=== PATIENT | male | born 1945 | race Caucasian/White ===

== ENCOUNTER → 2018-09-05 08:23 | Outpatient (CLI) | payer MEDICARE, SELFPAY ==
[2018-09-05 09:02] LABS: Add Manual Diff / Slide Review NO; Basophils Percent Auto 0.9 % (0-2); Eosinophils Percent Auto 3.2 % (2-4); Hematocrit 46.8 % (41-53); Lymphocytes Percent Auto 42.2 % (25-40); Mean Corpuscular HGB Conc 34.1 % (30-36); Mean Corpuscular Hemoglobin 31.8 PG (26-34); Mean Corpuscular Volume 93.4 fL (80-100); Monocytes Percent Auto 12.4 % (3-14); Neutrophils Absolute Auto 2300 /uL (3000-5900); Neutrophils Percent Auto 41.3 % (50-75); Platelet Count 171 X10^3/uL (150-400); Red Blood Cell Count 5.01 X10^6/uL (4.5-5.9); Red Cell Distribution Width 13.1 % (11.6-14.8); White Blood Cell Count 5.6 X10^3/uL (4.5-11.0)
[2018-09-05 09:27] LABS: Alanine Aminotransferase 33 IU/L (21-72); Albumin 4.5 g/dL (3.5-5.0); Albumin Globulin Ratio 1.7 (1.0-2.8); Alkaline Phosphatase 79 U/L (38-126); Aspartate Aminotransferase 28 IU/L (17-59); BUN Creatinine Ratio 24.4 (6-22); Bilirubin Total 0.6 mg/dL (0.2-1.3); Blood Urea Nitrogen 22 mg/dL (9-20); Calcium 9.2 mg/dL (8.4-10.2); Carbon Dioxide 27 mmol/L (22-32); Chloride 101 mmol/L (98-107); Estimated Glomerular Filt Rate > 60.0 mL/min (>60); Globulin 2.7 g/dL (1.7-4.1); Glucose 117 mg/dL (80-110); HEMOLYSIS < 15 (0-50); Sodium 142 mmol/L (137-145); Total Protein 7.2 g/dL (6.3-8.2)
[2018-09-06 15:55] LABS: Free Kappa Light Chain 39.2 mg/L (3.3-19.4); Free Kappa/ Lambda Ratio 2.17 (0.26-1.65); Free Lambda 18.1 mg/L (5.7-26.3)
[2018-09-09 15:48] LABS: Abnormal Protein Band 1 0.4 g/dL (NONE DETECTED); Albumin 4.1 g/dL (3.8-4.8); Alpha 1 Globulin 0.3 g/dL (0.2-0.3); Alpha 2 Globulin 0.7 g/dL (0.5-0.9); Beta 1 Globulin 0.4 g/dL (0.4-0.6); Protein, Total 6.8 g/dL (6.1-8.1)
== END ==
PROVIDERS: Family Provider Internal Medicine; PCP Internal Medicine; Visit Provider Nurse Practitioner Gerontology
DX: D47.2 Monoclonal gammopathy (principal)
CPT/HCPCS: 36415; 80053; 83883; 84155; 84165; 85025

== ENCOUNTER 2019-03-12 12:31 | Day surgery (SDC) | payer MEDICARE, SELFPAY ==
[2019-03-12] VITALS (7 sets, daily range): BP systolic 96–144; BP diastolic 59–79; PULSE 60–68; RESP 12–16; TEMP 36.6–36.9; O2SAT 94–97; BMI 24.9
[2019-03-12] MEDS: SODIUM CHLORIDE 0.9% 1,000 ML 200 ML IV (12:47)
--- NOTE | 2019-03-12 14:15 | P.HP_ITS ---
History of Present Illness Chief complaint: [id number] SCREENING COLONOSCOPY W/POSS BX Patient History Medical History Diabetes (Acute) Diverticulitis (Acute) GERD (gastroesophageal reflux disease) (Acute) Hypertension (Acute) Murmur (Acute) Neuropathy (Acute) Seasonal allergies (Acute) Surgical History History of colonoscopy (Acute) Social History household members: spouse Family & Social History Social History: household members spouse Meds Home Medications Medication Instructions Recorded Confirmed Type omeprazole 10 mg PO QDAY #0 03/27/17 03/12/19 History aspirin 81 mg PO DAILY 09/16/18 03/12/19 History erdvttsg-dacnv-bqexu-CF borate 1 tab PO DAILY 09/16/18 History [Move Free Do It In Person [facility]] hydrochlorothiazide 12.5 mg PO DAILY 09/16/18 03/12/19 History losartan 50 mg PO DAILY 09/16/18 03/12/19 History multivitamin 1 tab PO DAILY 09/16/18 09/16/18 History simvastatin [Zocor] 40 mg PO QPM 09/16/18 03/12/19 History Tylenol 03/12/19 History fluticasone propionate 1 spray INTRANASAL DAILY 03/12/19 03/12/19 History gabapentin 800 mg PO BID 03/12/19 03/12/19 History metformin 500 mg PO BID 03/12/19 03/12/19 History Allergies Allergy/AdvReac Type Severity Reaction Status Date / Time No Known Drug Allergies Allergy Unknown Verified 03/12/19 12:47 Review of Systems Review of Systems All systems reviewed & are unremarkable except as noted in HPI and below Exam Vital Signs (past 8 hours): - 03/12/19 13:02 Temperature 98.0 F Pulse Rate 68 Respiratory Rate 15 Blood Pressure 144/79 H Pulse Oximetry 97 Oxygen Delivery Method Room Air Narrative Exam Narrative: Awake alert and oriented x3, pupils equal round reactive to light, lungs clear, abdomen soft nontender nondistended Assessment & Plan Assessment & Plan narrative: Colon cancer screening, colonoscopy
[2019-03-12] MEDS: MIDAZOLAM 5 MG/5 ML VIAL IV (14:27)
[2019-03-12] MEDS: fentaNYL 250 MCG/5 ML INJ IV (14:28)
--- NOTE | 2019-03-12 14:44 | PM.OP.ENDO ---
Operative Date/Time/Diagnoses Date of procedure: 03/12/19 Procedure & Clinicians Study performed: Colonoscopy Moderate conscious sedation was administered by the endoscopy nurse and supervised by the endoscopist. The following parameters were monitored: Oxygen saturation, heart rate, blood pressure, and response to care. Sedation: 3 mg midazolam, 100 mcg fentanyl Indications: Colon cancer screening. Last colonoscopy was done 10 years ago. Procedure Notes Procedure in detail: Prior to the procedure, history and physical was performed, and patient medications and allergies were reviewed. Preprocedure nursing history and assessment was reviewed. Patient identification and proposed procedure were verified by the physician and nurse in the procedure room. The physical status of the patient was reassessed after the procedure. After informed consent was obtained including risks, benefits, and alternatives, the scope was passed under direct vision. Throughout the procedure, the patient's blood pressure, pulse, and oxygen saturations were monitored continuously. The colonoscope was introduced through the anus and advanced to the cecum as identified by the appendiceal orifice and ileocecal valve. The patient tolerated the procedure well. Bowel prep was deemed adequate to detect polyps greater than 5 mm. Perianal and digital rectal examinations were unremarkable. Retroflexion in the rectum revealed grade 1 internal hemorrhoids Many medium mouth diverticula noted in the sigmoid colon The colon was otherwise normal appearing Impression: Internal hemorrhoids Sigmoid colon diverticulosis No specimens taken Sedation minutes: 15 Complications: other (EBL none. No complications) Plan for aftercare: Repeat colonoscopy as needed. No indication for additional colonoscopies for colon cancer screening purposes. Resume home medications High fiber diet Discharge home with escort
== END 2019-03-12 15:18 | disposition home or self-care (01) ==
PROVIDERS: Family Provider Internal Medicine; PCP Internal Medicine; Visit Provider Internal Medicine
PROC: 0DJD8ZZ Inspection of Lower Intestinal Tract, Via Natural or Artificial Opening Endoscopic (ICD-10-PCS; CPT 45378; principal; 2019-03-12 13:30)
DX: Z12.11 Encounter for screening for malignant neoplasm of colon (principal); E11.9 Type 2 diabetes mellitus without complications; I10 Essential (primary) hypertension; K57.30 Diverticulosis of large intestine without perforation or abscess without bleeding; K64.0 First degree hemorrhoids; Z79.84 Long term (current) use of oral hypoglycemic drugs
CPT/HCPCS: G0121; J2250; J3010

== ENCOUNTER → 2020-04-05 07:57 | Outpatient (CLI) | payer MEDICARE, SELFPAY ==
[2020-04-05 08:46] LABS: Hemoglobin A1C% w Est Avg Glu 6.7 % (4.0-6.0)
== END ==
PROVIDERS: Family Provider Internal Medicine; PCP Internal Medicine; Referring Provider Internal Medicine; Visit Provider Internal Medicine
DX: E11.9 Type 2 diabetes mellitus without complications (principal)
CPT/HCPCS: 36415; 83036

== ENCOUNTER → 2020-05-05 08:01 | Outpatient (CLI) | payer MEDICARE, SELFPAY ==
[2020-05-05 10:02] LABS: Hemoglobin A1C% w Est Avg Glu 6.6 % (4.0-6.0)
== END ==
PROVIDERS: Family Provider Internal Medicine; PCP Internal Medicine; Referring Provider Internal Medicine; Visit Provider Internal Medicine
DX: E11.9 Type 2 diabetes mellitus without complications (principal)
CPT/HCPCS: 36415; 83036

== ENCOUNTER → 2020-07-11 14:11 | Outpatient (CLI) | payer MEDICARE, SELFPAY ==
[2020-07-12 13:47] LABS: COVID19 Sendout Not Detected (Not Detect)
== END ==
PROVIDERS: Family Provider Internal Medicine; PCP Internal Medicine; Visit Provider Physician Assistant
DX: Z11.59 Encounter for screening for other viral diseases (principal)
CPT/HCPCS: 87635

== ENCOUNTER 2020-07-14 12:24 | Day surgery (SDC) | payer MEDICARE, SELFPAY ==
--- NOTE | 2020-07-14 | PATH_ITS ---
[facility] Accession Number: [id number] . 01 Material submitted: . colon - RANDOM COLON . 02 Diagnosis: Random Colon, Biopsy: Lymphocytic colitis. MRV 07/16/2020 1048 Local . 02 Electronically signed: . Yoni Urena MD, PhD, Pathologist NPI- [id number] . 01 Gross description: . Received in formalin, labeled random colon biopsies, and consists of multiple lauren-pink fragments of soft tissue measuring 1.0 x 1.0 x 0.2 cm in aggregate. The specimen is entirely submitted in cassette A1. ([id number]) /MRV 07/15/2020 1032 Local . 02 Pathologist provided ICD-10: R19.7, K52.89 . 02 CPT . 191715 Performed at: 01 [facility] [address] [id number] MD Raul Santos MD Phone: [phone] Performed at: 02 [facility] [address] [place] [id number] MD Bhavna Calabrese MD Phone: [phone]
[2020-07-14 13:01] VITALS: BP 143/76; PULSE 64; RESP 16; TEMP 36.9; O2SAT 98; BMI 24.7
[2020-07-14] MEDS: SODIUM CHLORIDE 0.9% 1,000 ML 21 ML IV (13:23)
--- NOTE | 2020-07-14 13:36 | PM.PREOP ---
Pre-operative Note Interval Note History & Physical reviewed/Exam performed by Physician: Yes Changes to H&P: No ASA Class (for procedural sedation): II
--- NOTE | 2020-07-14 13:37 | PM.OP.ENDO ---
Operative Date/Time/Diagnoses Date of procedure: 07/14/20 Pre-op diagnosis: See indication and findings Procedure & Clinicians Study performed: Colonoscopy with biopsy Same procedure as scheduled: Yes Indications: Diarrhea Surgeon: Ramonita Robbins Procedure Notes Procedure in detail: After informed consent was obtained the patient was placed in left lateral decubitus position. Video colonoscope was introduced the rectum slowly advanced to cecum. Preparation was good. On slow withdrawal mucosa was carefully examined. The scope was removed. The patient tolerated procedure well. Blood loss none Complications none Sedation Total sedation time 14 minutes Versed 4 mg, fentanyl 100 mg IV titration Findings 1. Colonoscopy showing at decreased vascular pattern and mild erythema throughout in a somewhat patchy fashion. All this could be within normal limits but might represent underlying microscopic colitis. Random biopsies taken. 2. Otherwise negative colonoscopy to cecum. Will be in touch with the patient regarding biopsies and if positive of her treatment and if negative offer additional workup.
[2020-07-14] MEDS: fentaNYL 250 MCG/5 ML INJ IV (14:03)
[2020-07-14] MEDS: MIDAZOLAM 5 MG/5 ML VIAL IV (14:10)
[2020-07-14 14:23] VITALS: BP 100/61; PULSE 60; RESP 12; TEMP 36.4; O2SAT 93
[2020-07-14 14:26] VITALS: BP 112/65; PULSE 65; RESP 12; O2SAT 94
[2020-07-14 14:46] VITALS: BP 106/61; PULSE 60; RESP 14; TEMP 36.9; O2SAT 94
== END 2020-07-14 15:16 | disposition home or self-care (01) ==
PROVIDERS: Family Provider Internal Medicine; PCP Internal Medicine; Referring Provider Internal Medicine Gastroenterology; Visit Provider Internal Medicine Gastroenterology
PROC: 0DJD8ZZ Inspection of Lower Intestinal Tract, Via Natural or Artificial Opening Endoscopic (ICD-10-PCS; CPT 45378; principal; 2020-07-14 14:30)
DX: K52.832 Lymphocytic colitis (principal); E11.9 Type 2 diabetes mellitus without complications; I10 Essential (primary) hypertension; K21.9 Gastro-esophageal reflux disease without esophagitis
CPT/HCPCS: 45380; J2250; J3010

== ENCOUNTER → 2020-09-15 10:05 | Outpatient (CLI) | payer MEDICARE, SELFPAY ==
[2020-09-16 06:36] LABS: PSA Free % 6.3 % (.); PSA, Total 10.4 ng/mL (0.0-4.0)
== END ==
PROVIDERS: Family Provider Internal Medicine; PCP Internal Medicine; Referring Provider Internal Medicine; Visit Provider Internal Medicine
DX: Z12.5 Encounter for screening for malignant neoplasm of prostate (principal); R97.20 Elevated prostate specific antigen [PSA]
CPT/HCPCS: 36415; 84153; 84154

== ENCOUNTER → 2020-11-26 12:21 | Outpatient (CLI) | payer MEDICARE, SELFPAY ==
--- NOTE | 2020-11-26 | DI.MRI.S_ITS ---
PROCEDURE: MR ANGIO HEAD WO CON INDICATIONS: PULSATILE TINNITUS RIGHT EAR TECHNIQUE: Noncontrast axial 3-D iocj-te-lqiwmi MR angiogram, with 3-dimensional maximum intensity projection (MIP) reformats of the internal carotid arteries and posterior circulation then performed. COMPARISON: None. FINDINGS: Image quality: Excellent. Anterior circulation: Intracranial internal carotid arteries demonstrate normal size and intraluminal flow signal. The flow within the paired anterior cerebral arteries is normal and symmetric. The flow within the middle cerebral arteries is normal and symmetric. The anterior communicating artery is seen. No stenoses, occlusions, or aneurysms. Posterior circulation: Visualized portions of the vertebral arteries demonstrate normal caliber, and join to form a normal appearing basilar artery. The flow within the posterior cerebral arteries is normal and symmetric. No stenoses, occlusions, or aneurysms. IMPRESSION: Negative cerebral MR angiography. Dictated by: Cirilo Coe M.D. on 11/26/2020 at 13:26 Approved by: Cirilo Coe M.D. on 11/26/2020 at 13:27
== END ==
PROVIDERS: Family Provider Internal Medicine; PCP Internal Medicine; Referring Provider Otolaryngology; Visit Provider Otolaryngology
DX: H93.A1 Pulsatile tinnitus, right ear (principal)
CPT/HCPCS: 70544

== ENCOUNTER → 2020-12-06 14:33 | Outpatient (CLI) | payer MEDICARE, SELFPAY ==
--- NOTE | 2020-12-06 | DI.MRI.S_ITS ---
PROCEDURE: MR ANGIO NECK W CON INDICATIONS: Pulsatile tinnitus, right ear TECHNIQUE: Axial and sagittal TruFISP through the neck. Coronal dynamic MRA after the administration of contrast in the arterial and venous phases, with rotating 3-dimensional maximum intensity projection (MIP) reformats constructed from subtraction images. COMPARISON: Formerly [facility], [place], CAROTID ARTERY DOPPLER BILAT, 10/24/2010, 12:21. Formerly [facility], , MR ANGIO HEAD WO CON, 11/26/2020, 12:37. FINDINGS: Image quality: Excellent. Carotid system: Great vessels demonstrate a conventional anatomy as they arise from the aortic arch. The origins of the common carotid arteries appear normal. The calibers and courses of the common carotid arteries are likewise normal. The carotid bifurcations appear normal bilaterally. The internal carotid arteries are widely patent up to the [place] of [place]. Posterior circulation: The origins of the vertebral arteries are unremarkable. The more superior portions of the vertebral arteries demonstrate normal course and caliber. The left vertebral artery is dominant to the right. Vertebral arteries join to form a normal appearing basilar artery. Miscellaneous: Subclavian arteries are patent throughout. Pre-contrast images through the neck demonstrate no soft tissue abnormalities. IMPRESSION: Within the arteries of the neck, no hemodynamically significant stenosis can be seen. Any quantitative measurements of stenosis were performed using NASCET criteria. Dictated by: Tariq Guallpa M.D. on 12/06/2020 at 16:11 Approved by: Tariq Guallpa M.D. on 12/06/2020 at 16:13
== END ==
PROVIDERS: Family Provider Internal Medicine; PCP Internal Medicine; Referring Provider Otolaryngology; Visit Provider Otolaryngology
DX: H93.A1 Pulsatile tinnitus, right ear (principal)
CPT/HCPCS: 70548; A9579

== ENCOUNTER 2021-02-04 17:08 | Emergency (ER) | payer MEDICARE, SELFPAY ==
[2021-02-04] VITALS (7 sets, daily range): BP systolic 121–133; BP diastolic 62–68; PULSE 68–86; RESP 18–22; TEMP 37.1; O2SAT 94–98; BMI 25.0
--- NOTE | 2021-02-04 17:30 | ED_ITS ---
HPI - General Adult General Chief complaint: Abdominal Pain Stated complaint: Dizziness, N/V Time Seen by Provider: 02/04/21 17:30 Source: patient and EMS Mode of arrival: EMS Limitations: no limitations History of Present Illness HPI narrative: 75-year-old male who is brought in by EMS for evaluation of nausea and vomiting that started last evening and also some dizziness and weakness today. He states that yesterday he was with his down in [place]. He states they ate at a restaurant. Afterwards when he was at home he developed nausea and vomiting. He states that he has diarrhea but that is not necessarily new for him. He was diagnosed with ?microscopic colitis ?from a biopsy that was taken during a colonoscopy. He is currently on medications for this and under the care of a GI provider. He denies any fevers. Recently underwent a prostatectomy. His is not exhibiting any symptoms. He did receive Zofran by EMS prior to arrival which has improved his nausea. He has not drank much over the past 24 hours because the nausea. They were also concerned that for the past week he has become very fatigued and actually falling asleep during the day which is unusual for him. Related Data Home Medications Medication Instructions Recorded Confirmed omeprazole 10 mg PO QDAY #0 03/27/17 10/07/20 Move [facility] 1 tab PO DAILY 09/16/18 10/07/20 aspirin 81 mg PO DAILY 09/16/18 10/07/20 hydrochlorothiazide 12.5 mg PO DAILY 09/16/18 10/07/20 losartan 50 mg PO DAILY 09/16/18 10/07/20 multivitamin 1 tab PO DAILY 09/16/18 10/07/20 simvastatin [Zocor] 40 mg PO QPM 09/16/18 10/07/20 Tylenol 500 mg BID 03/12/19 10/07/20 fluticasone propionate 1 spray INTRANASAL DAILY 03/12/19 10/07/20 gabapentin 600 mg PO BID 03/12/19 10/07/20 Tumeric 1,000 mg DAILY 09/29/19 10/07/20 loperamide 2 mg PO SEEINSTR 07/14/20 10/07/20 Allergies Allergy/AdvReac Type Severity Reaction Status Date / Time No Known Drug Allergies Allergy Unknown Verified 07/14/20 12:56 Review of Systems Constitutional Constitutional: Reports fatigue and Denies fever(s) Cardiovascular Cardiovascular: Denies chest pain and Denies dyspnea Respiratory Respiratory: Denies dyspnea Gastrointestinal Gastrointestinal: Denies abdominal pain, Denies melena, Denies hematochezia, Denies change in bowel habits, Reports diarrhea, Reports nausea and Reports vomiting Musculoskeletal Musculoskeletal: Denies arthralgias and Denies myalgias Integumentary/Breasts Skin/Breast: Denies lesions and Denies rash Neurologic Neurologic: Denies behavioral changes Psychiatric Psychiatric: Denies behavioral changes Endocrine Endocrine: Reports fatigue Hematologic/Lymphatic On Anticoagulants: No Allergic/Immunologic Allergic/Immunologic: Denies urticaria Patient History Medical History Diabetes Diverticulitis GERD (gastroesophageal reflux disease) Hypertension Murmur Neuropathy Seasonal allergies Surgical History (Updated 09/29/19 @ 09:21 by Mann Wilson MD) History of colonoscopy Social History household members: spouse Smoking Status: Never smoker alcohol intake: current Smoking Status: Never smoker alcohol intake frequency: 0-2 drinks per day Substance Use Type: does not use Exam Initial Vital Signs Initial Vital Signs: Vital Signs Temperature 98.8 F 02/04/21 17:17 Pulse Rate 86 02/04/21 17:17 Respiratory Rate 18 02/04/21 17:17 Blood Pressure 133/67 02/04/21 17:17 Pulse Oximetry 97 02/04/21 17:17 Const General: cooperative, comfortable and well developed Limitations: mental status not altered HENMT Head: normal to inspection and normocephalic Resp Effort & Inspection: normal respiratory effort Auscultation: clear to auscultation bilaterally Cardio Rate: regular rate Rhythm: regular rhythm GI Inspection: non-distended Palpation: soft, No firm and No tender Skin Other: Surgical incisions from prostatectomy on abdomen appear well without any signs of infection Neuro General: patient alert and patient awake Extrem General: capillary refill normal Course Orders Ordered: ED Orders 02/04/21 17:00 Complete Blood Count AUTO DIFF Stat Comprehensive Metabolic Panel Stat Lipase Stat 02/04/21 17:30 EKG-12 Lead Stat 02/04/21 17:42 Urine Culture Stat Urine Microscopic Stat Discontinued Medications Sodium Chloride (Normal Saline 0.9%) 1,000 mls @ 1,000 mls/hr IV BOLUS ONE Stop: 02/04/21 18:29 Last Infusion: 02/04/21 18:28 Dose: 0 mls/hr Documented by: Admin: 02/04/21 17:51 Dose: 1,000 mls/hr Documented by: ESTELITA Sodium Chloride (Normal Saline 0.9%) 1,000 mls @ 1,000 mls/hr IV BOLUS ONE Stop: 02/04/21 19:03 Last Admin: 02/04/21 18:29 Dose: 1,000 mls/hr Documented by: ESTELITA Vital Signs Vital signs: Vital Signs - 8 hr 02/04/21 17:17 02/04/21 17:34 02/04/21 18:00 Temperature 98.8 F Pulse Rate 86 79 79 Respiratory Rate 18 20 20 Blood Pressure 133/67 Pulse Oximetry 97 96 94 02/04/21 18:30 02/04/21 18:32 Temperature Pulse Rate 77 79 Respiratory Rate 22 20 Blood Pressure 121/68 Pulse Oximetry 95 96 Medical Decision Making Lab Data Lab results reviewed: Yes I reviewed the patient's lab results. Result diagrams: 02/04/21 17:00 02/04/21 17:00 Labs: Lab Results 02/04/21 02/04/21 02/04/21 Range/Units 17:00 17:00 17:42 WBC 10.3 (4.5-11.0) X10^3/uL RBC 4.46 L (4.5-5.9) X10^6/uL Hgb 14.0 (13.5-17.5) g/dL Hct 41.6 (41-53) % MCV 93.2 (80-100) fL MCH 31.4 (26-34) PG MCHC 33.7 (30-36) % RDW 13.2 (11.6-14.8) % Plt Count 114 L (150-400) X10^3/uL Neut % (Auto) 86.6 H (50-75) % Lymph % (Auto) 6.2 L (25-40) % Nobles % (Auto) 6.7 (3-14) % Eos % (Auto) 0.1 L (2-4) % Baso % (Auto) 0.4 (0-2) % Neut # (Auto) 8900 H (4633-8560) /uL Lymph # (Auto) 600 L (5892-2128) /uL [place]les # (Auto) 700 (0-900) /uL Eos # (Auto) 0 (0-450) /uL Baso # (Auto) 0 (0-100) /uL Sodium 131 L (137-145) mmol/L Potassium 3.9 (3.4-5.1) mmol/L Chloride 97 L (98-107) mmol/L Carbon Dioxide 27 (22-32) mmol/L BUN 23 H (9-20) mg/dL Creatinine 0.87 (0.66-1.25) mg/dL Estimated GFR > 60.0 (>60) mL/min BUN/Creatinine Ratio 26.4 H (6-22) Glucose 239 H (80-110) mg/dL Calcium 8.7 (8.4-10.2) mg/dL Total Bilirubin 0.6 (0.2-1.3) mg/dL AST 71 H (17-59) IU/L ALT 37 (<50) IU/L Alkaline Phosphatase 83 (38-126) U/L Total Protein 6.7 (6.3-8.2) g/dL Albumin 3.7 (3.5-5.0) g/dL Globulin 3.0 (1.7-4.1) g/dL Albumin/Globulin Ratio 1.2 (1.0-2.8) Lipase 32 (23-300) U/L Urine RBC 5-10/hpf H (0-5/HPF) Urine WBC 1-5/hpf (0-5/HPF) Ur Squamous Epith Cells 0-1 /hpf (0-5/HPF) Amorphous Sediment 1+ Urine Bacteria Few (2-10) H (None) Urine Mucus 1+ H (Negative) Ur Culture Indicated? Specimen cultured Urine Dip Bedside Urine Glucose 100 mg/dl Bedside Urine Bilirubin + 1 Bedside Urine Ketone + 15 Urine Specific [place] 1.030 Bedside Urine Occult Blood +++ Bedside Urine pH 6.0 Bedside Urine Protein +++ 300 Bedside Urine Urobilinogen - Negative Bedside Urine Nitrite - Negative Bedside Urine Leukocytes - Negative Esterase Point of care testing: Urine Dip Bedside Urine Glucose 100 mg/dl Bedside Urine Bilirubin + 1 Bedside Urine Ketone + 15 Urine Specific [place] 1.030 Bedside Urine Occult Blood +++ Bedside Urine pH 6.0 Bedside Urine Protein +++ 300 Bedside Urine Urobilinogen - Negative Bedside Urine Nitrite - Negative Bedside Urine Leukocytes - Negative Esterase ECG Data Attestation: I personally reviewed and interpreted this ECG as follows: Prior ECG tracings: not available for review Interpretation: Sinus rhythm Ventricular rate is 79 Normal axis Normal QRS Normal QTC No ST T wave changes MDM Narrative Medical decision making narrative: Patient is hyperglycemic however not acidotic. He has a benign abdominal exam. His EKG is unremarkable. Does have ketones in his urine and I feel that given his baseline diarrhea and then the decreased oral intake and also the vomiting over the past 24 hours I suspect much of his symptoms are related to dehydration. He was given fluids. I feel we can hold on a CT scan for now. Care turned over to Dr. kumar at change of shift to follow up and disposition. Discharge Plan Departure Prescriptions: No Action omeprazole 20 MG capsule,delayed release(DR/EC) 10 mg PO QDAY Qty: 0 RF: 0 multivitamin Tablet 1 tab PO DAILY RF: 0 losartan 50 mg Tablet 50 mg PO DAILY RF: 0 aspirin 81 mg Tablet,Delayed Release (Dr/Ec) 81 mg PO DAILY RF: 0 simvastatin [Zocor] 40 mg Tablet 40 mg PO QPM RF: 0 hydrochlorothiazide 12.5 mg Tablet 12.5 mg PO DAILY RF: 0 [facility] 750 mg-100 mg- 1.65 mg-108 mg Tablet 1 tab PO DAILY RF: 0 Tumeric 500 mg 1,000 mg DAILY RF: 0 Tylenol 500 mg BID RF: 0 gabapentin 800 mg Tablet 600 mg PO BID RF: 0 fluticasone propionate 50 mcg/actuation [place],Suspension 1 spray INTRANASAL DAILY RF: 0 loperamide 2 mg Tablet 2 mg PO SEEINSTR RF: 0
[2021-02-04 17:38] LABS: Add Manual Diff / Slide Review NO; Basophils Absolute Auto 0 /uL (0-100); Basophils Percent Auto 0.4 % (0-2); Eosinophils Absolute Auto 0 /uL (0-450); Eosinophils Percent Auto 0.1 % (2-4); Hematocrit 41.6 % (41-53); Lymphocytes Absolute Auto 600 /uL (1100-4500); Lymphocytes Percent Auto 6.2 % (25-40); Mean Corpuscular HGB Conc 33.7 % (30-36); Mean Corpuscular Hemoglobin 31.4 PG (26-34); Mean Corpuscular Volume 93.2 fL (80-100); Monocytes Absolute Auto 700 /uL (0-900); Monocytes Percent Auto 6.7 % (3-14); Neutrophils Absolute Auto 8900 /uL (1500-7000); Neutrophils Percent Auto 86.6 % (50-75); Platelet Count 114 X10^3/uL (150-400); Red Blood Cell Count 4.46 X10^6/uL (4.5-5.9); Red Cell Distribution Width 13.2 % (11.6-14.8); White Blood Cell Count 10.3 X10^3/uL (4.5-11.0)
[2021-02-04 17:48] LABS: Alanine Aminotransferase 37 IU/L (<50); Albumin 3.7 g/dL (3.5-5.0); Albumin Globulin Ratio 1.2 (1.0-2.8); Alkaline Phosphatase 83 U/L (38-126); Aspartate Aminotransferase 71 IU/L (17-59); BUN Creatinine Ratio 26.4 (6-22); Bilirubin Total 0.6 mg/dL (0.2-1.3); Blood Urea Nitrogen 23 mg/dL (9-20); Calcium 8.7 mg/dL (8.4-10.2); Carbon Dioxide 27 mmol/L (22-32); Chloride 97 mmol/L (98-107); Estimated Glomerular Filt Rate > 60.0 mL/min (>60); Glucose 239 mg/dL (80-110); HEMOLYSIS 28 (0-50); Lipase 32 U/L (23-300); Potassium 3.9 mmol/L (3.4-5.1); Sodium 131 mmol/L (137-145); Total Protein 6.7 g/dL (6.3-8.2)
[2021-02-04] MEDS: SODIUM CHLORIDE 0.9% 1,000 ML 1000 ML IV ×2 (17:51→18:29)
[2021-02-04 18:08] LABS: RBC Urine 5-10/HPF (0-5/HPF)
[2021-02-04 18:09] LABS: Amorphous Sediment Urine 1+; Bacteria Urine Few (2-10); Culture Indicated Urine Specimen Cultured; Mucus Urine 1+ (Negative); Squamous Epithelial Cell Urine 0-1 /HPF (0-5/HPF); WBC Urine 1-5/HPF (0-5/HPF)
[2021-02-04] MEDS: ONDANSETRON 4 MG ODT PREPACK 1 BOTTLE MISC (20:17)
== END 2021-02-04 20:23 | disposition home or self-care (01) ==
PROVIDERS: Emergency Medicine; Emergency Provider Emergency Medicine; Family Provider Internal Medicine; PCP Internal Medicine
DX: R11.2 Nausea with vomiting, unspecified (principal); R19.7 Diarrhea, unspecified; R73.9 Hyperglycemia, unspecified; I10 Essential (primary) hypertension
CPT/HCPCS: 36415; 80053; 81003; 81015; 83690; 85025; 87086; 93005; 96360; 96361; 99284

== ENCOUNTER 2021-02-09 18:07 | Emergency (ER) | payer MEDICARE, SELFPAY ==
[2021-02-09] VITALS (15 sets, daily range): BP systolic 93–130; BP diastolic 60–71; PULSE 88–102; RESP 22–27; TEMP 37.9; O2SAT 80–97; BMI 25.0
[2021-02-09 19:08] LABS: Add Manual Diff / Slide Review NO; Basophils Absolute Auto 0 /uL (0-100); Basophils Percent Auto 0.5 % (0-2); Eosinophils Absolute Auto 400 /uL (0-450); Hematocrit 40.7 % (41-53); Lymphocytes Absolute Auto 800 /uL (1100-4500); Lymphocytes Percent Auto 8.5 % (25-40); Mean Corpuscular HGB Conc 34.3 % (30-36); Mean Corpuscular Volume 93.3 fL (80-100); Monocytes Absolute Auto 700 /uL (0-900); Monocytes Percent Auto 7.5 % (3-14); Neutrophils Absolute Auto 7100 /uL (1500-7000); Neutrophils Percent Auto 79.5 % (50-75); Platelet Count 134 X10^3/uL (150-400); Red Blood Cell Count 4.36 X10^6/uL (4.5-5.9); Red Cell Distribution Width 13.3 % (11.6-14.8); White Blood Cell Count 8.9 X10^3/uL (4.5-11.0)
--- NOTE | 2021-02-09 19:10 | ED_ITS ---
HPI - Fever General Chief Complaint: Fever Stated Complaint: abdominal issues Time Seen by Provider: 02/09/21 18:29 Source: patient Mode of arrival: Ambulatory Limitations: no limitations History of Present Illness HPI Narrative: Patient is a 75-year-old male who had a radical prostatectomy January 06 in [place]. He has had persistent vomiting since February 04. He was actually seen evaluated in the emergency department after eating at a [place] buffet and has persistently been vomiting. He received IV fluids and was discharged home. He says since then he really has not felt great. Last night he had the worst night of his life. He had quite a severe headache he has had some diarrhea he has noted some blood in his urine as well. He has low- grade temperature of a 100.2? but was unsure if he had a fever last night he says that he was sweating. He has no numbness tingling or weakness. His neck does not hurt. He has no visual changes. He overall just does not feel well. Says he does have a history of microscopic colitis. They are hoping that we find an answer here in the emergency department today for his symptoms. MD complaint: fever, malaise and weakness Associated symptoms: headache and night sweats Exacerbating factors: nothing Related Data Home Medications Medication Instructions Recorded Confirmed omeprazole 10 mg PO QDAY #0 03/27/17 10/07/20 [facility] [employer] 1 tab PO DAILY 09/16/18 10/07/20 aspirin 81 mg PO DAILY 09/16/18 10/07/20 hydrochlorothiazide 12.5 mg PO DAILY 09/16/18 10/07/20 losartan 50 mg PO DAILY 09/16/18 10/07/20 multivitamin 1 tab PO DAILY 09/16/18 10/07/20 simvastatin [Zocor] 40 mg PO QPM 09/16/18 10/07/20 Tylenol 500 mg BID 03/12/19 10/07/20 fluticasone propionate 1 spray INTRANASAL DAILY 03/12/19 10/07/20 gabapentin 600 mg PO BID 03/12/19 10/07/20 Tumeric 1,000 mg DAILY 09/29/19 10/07/20 loperamide 2 mg PO SEEINSTR 07/14/20 10/07/20 Allergies Allergy/AdvReac Type Severity Reaction Status Date / Time No Known Drug Allergies Allergy Unknown Verified 02/09/21 18:35 Review of Systems Review of Systems ROS Unobtainable: All systems reviewed & are unremarkable except as noted in HPI and below Constitutional Constitutional: Denies chills, Denies fever(s), Reports headache(s), Denies lethargy and Reports weakness Eyes Eyes: Denies change in vision, Denies eye discharge, Denies irritation and Denies loss of vision ENT Ears, Nose, Mouth, and Throat: Denies vertigo, Denies dizziness and Reports headache(s) Cardiovascular Cardiovascular: Denies irregular heart rhythm and Denies palpitations Gastrointestinal Gastrointestinal: Denies abdominal pain, Reports change in bowel habits, Reports diarrhea, Reports nausea and Reports vomiting Genitourinary Genitourinary: Reports as per HPI Genitourinary: Reports as per HPI Musculoskeletal Musculoskeletal: Reports myalgias and Denies numbness Integumentary/Breasts Skin/Breast: Denies pruritus, Denies erythema, Denies rash and Denies wounds Neurologic Neurologic: Denies vertigo, Denies dizziness, Reports headache(s), Denies loss of vision, Denies memory loss, Denies numbness, Denies sensory deficit and Reports weakness Psychiatric Psychiatric: Denies memory loss Endocrine Endocrine: Denies palpitations Patient History Medical History (Updated 02/09/21 @ 23:39 by Larisa Ennis DO) Diabetes Diverticulitis GERD (gastroesophageal reflux disease) Hypertension Murmur Neuropathy Seasonal allergies Surgical History History of colonoscopy Social History household members: spouse Smoking Status: Never smoker alcohol intake: current Smoking Status: Never smoker alcohol intake frequency: 0-2 drinks per day Alcohol type: wine Substance Use Type: does not use Exam Initial Vital Signs Initial Vital Signs: Vital Signs Pulse Rate 102 H 02/09/21 18:12 Pulse Oximetry 96 02/09/21 18:12 GENERAL: Alert 75-year-old male appears to not feel well HEENT: Head atraumatic,EOMI, pupils reactive, face symmetric, moist mucous membranes. Negative Kernig and Brudzinski sign CARDIOVASCULAR: Regular rate and rhythm without murmurs, rubs or gallops. RESPIRATORY: Breath sounds equal bilaterally, no wheezes rales or rhonchi. ABDOMEN: Soft, nontender. Normoactive bowel sounds all 4 quadrants. No guarding or rebound. Incision sites are clean and dry and do not appear infected EXTREMITIES: Normal range of motion, no clubbing or edema. Neurovascularly intact NEUROLOGICAL: Alert and oriented x4.Normal gait and speech. Cranial nerves II through XII grossly intact. [employer] strength equal bilaterally SKIN: Warm, dry, no laceration, no petechiae, no rashes or lesions. Course Orders Ordered: ED Orders 02/09/21 18:32 Complete Blood Count AUTO DIFF Stat Comprehensive Metabolic Panel Stat Lactate (Lactic Acid) Stat Lipase Stat Procalcitonin Stat 02/09/21 19:17 Blood Culture Stat Partial Thromboplastin Time Stat Prothrombin Time INR Stat Troponin & CK Cardiac Panel Stat 02/09/21 19:24 CT abdomen pelvis w con Stat CT head/brain wo con Stat 02/09/21 19:27 XR chest 1V Stat 02/09/21 19:40 US abdomen limited Stat 02/09/21 19:46 EKG-12 Lead Stat 02/09/21 19:56 Ictotest Urine Stat Urinalysis and Microscopic Stat Urine Culture Stat 02/09/21 22:25 COVID19 -Nasal swab/Pre-Proc Stat Heparin Sodium/Dextrose (Heparin Drip) 25,000 unit in 500 mls @ 17.418 mls/hr IV CONT ALEJANDRO; Protocol Last Admin: 02/09/21 22:15 Dose: 12 units/kg/hr, 17.418 mls/hr Documented by: TREVA Sodium Chloride (Normal Saline 0.9%) 1,000 mls @ 200 mls/hr IV BOLUS ONE Stop: 02/10/21 05:42 Discontinued Medications Aspirin (Aspirin 81 Mg Chew Tab) 324 mg PO NOW ONE Stop: 02/09/21 21:34 Last Admin: 02/09/21 22:16 Dose: 324 mg Documented by: TREVA Heparin Sodium (Porcine) (Heparin 5,000 Unit/Ml Vial) 4,000 unit IV NOW ONE Stop: 02/09/21 22:00 Last Admin: 02/09/21 22:15 Dose: 4,000 unit Documented by: TREVA Sodium Chloride (Normal Saline 0.9%) 1,000 mls @ 1,000 mls/hr IV BOLUS ONE Stop: 02/09/21 20:23 Last Infusion: 02/09/21 20:49 Dose: 0 mls/hr Documented by: Admin: 02/09/21 19:44 Dose: 1,000 mls/hr Documented by: TREVA Piperacillin/Tazobactam/Dextrose (Zosyn) 3.375 gm in 50 mls @ 100 mls/hr IV NOW ONE Stop: 02/09/21 20:35 Last Infusion: 02/09/21 20:48 Dose: 0 mls/hr Documented by: Admin: 02/09/21 20:13 Dose: 100 mls/hr Documented by: TREVA Sodium Chloride (Normal Saline 0.9%) 1,000 mls @ 1,000 mls/hr IV BOLUS ONE Stop: 02/09/21 22:32 Last Infusion: 02/09/21 23:23 Dose: 0 mls/hr Documented by: Admin: 02/09/21 22:16 Dose: 1,000 mls/hr Documented by: TREVA Morphine Sulfate (Morphine 4 Mg/Ml Inj) 4 mg IV NOW ONE Stop: 02/09/21 19:25 Last Admin: 02/09/21 19:44 Dose: 4 mg Documented by: TREVA Ondansetron HCl (Ondansetron 4 Mg/2 Ml Inj) 4 mg IV NOW ONE Stop: 02/09/21 19:25 Vital Signs Vital signs: Vital Signs - 8 hr 02/09/21 18:12 02/09/21 18:13 02/09/21 18:29 Temperature 100.2 F H Pulse Rate 102 H 100 H 100 H Respiratory Rate 22 Blood Pressure 115/62 115/62 Pulse Oximetry 96 95 95 02/09/21 18:30 02/09/21 19:00 02/09/21 19:30 Temperature Pulse Rate 100 H 99 H 99 H Respiratory Rate 27 H 26 H 26 H Blood Pressure 104/65 106/64 107/67 Pulse Oximetry 96 92 94 02/09/21 19:54 02/09/21 20:00 02/09/21 20:30 Temperature Pulse Rate 97 H 95 H 96 H Respiratory Rate 26 H Blood Pressure 130/70 118/71 109/68 Pulse Oximetry 92 97 89 L 02/09/21 21:00 02/09/21 21:28 02/09/21 22:35 Temperature Pulse Rate 94 H 95 H Respiratory Rate Blood Pressure 95/64 109/68 Pulse Oximetry 93 02/09/21 22:36 02/09/21 23:00 02/09/21 23:30 Temperature Pulse Rate 92 H 90 88 Respiratory Rate Blood Pressure 97/61 93/60 Pulse Oximetry 80 L 91 89 L MDM - Fever Lab Data Attestation: I reviewed the patient's lab results. Result diagrams: 02/09/21 18:32 02/09/21 18:32 Labs: Lab Results 02/09/21 02/09/21 02/09/21 Range/Units 18:32 18:32 18:32 WBC 8.9 (4.5-11.0) X10^3/uL RBC 4.36 L (4.5-5.9) X10^6/uL Hgb 14.0 (13.5-17.5) g/dL Hct 40.7 L (41-53) % MCV 93.3 (80-100) fL MCH 32.0 (26-34) PG MCHC 34.3 (30-36) % RDW 13.3 (11.6-14.8) % Plt Count 134 L (150-400) X10^3/uL Neut % (Auto) 79.5 H (50-75) % Lymph % (Auto) 8.5 L (25-40) % Randall % (Auto) 7.5 (3-14) % Eos % (Auto) 4.0 (2-4) % Baso % (Auto) 0.5 (0-2) % Neut # (Auto) 7100 H (3214-8308) /uL Lymph # (Auto) 800 L (1770-6213) /uL Randall # (Auto) 700 (0-900) /uL Eos # (Auto) 400 (0-450) /uL Baso # (Auto) 0 (0-100) /uL PT (10.1-12.7) SECONDS INR (0.9-1.3) APTT (26.4-36.2) SECONDS Sodium 131 L (137-145) mmol/L Potassium 3.7 (3.4-5.1) mmol/L Chloride 95 L (98-107) mmol/L Carbon Dioxide 24 (22-32) mmol/L BUN 23 H (9-20) mg/dL Creatinine 1.01 (0.66-1.25) mg/dL Estimated GFR > 60.0 (>60) mL/min BUN/Creatinine Ratio 22.8 H (6-22) Glucose 216 H (80-110) mg/dL Lactate 2.6 H (0.7-2.1) mmol/L Calcium 8.9 (8.4-10.2) mg/dL Total Bilirubin 1.3 (0.2-1.3) mg/dL AST 241 H (17-59) IU/L ALT 129 H (<50) IU/L Alkaline Phosphatase 310 H (38-126) U/L Total Creatine Kinase (55-170) U/L CK-MB (CK-2) CK-MB (CK-2) Rel Index Troponin I (0.01-0.034) ng/mL Total Protein 6.8 (6.3-8.2) g/dL Albumin 3.6 (3.5-5.0) g/dL Globulin 3.2 (1.7-4.1) g/dL Albumin/Globulin Ratio 1.1 (1.0-2.8) Lipase 34 D (23-300) U/L Procalcitonin (<0.5) ng/mL Urine Color Urine Appearance Urine pH (4.5-8.0) Ur Specific [place] (1.000-1.035) Urine Protein (Negative) Urine Glucose (UA) (Negative) g/dL Urine Ketones (NEGATIVE) Urine Occult Blood (Negative) Urine Nitrate (Negative) Urine Bilirubin (NEGATIVE) Ur Bilirubin Confirm (Negative) Urine Urobilinogen (0.2) E.U./dL Ur Leukocyte Esterase (NEGATIVE) Urine RBC (0-5/HPF) Urine WBC (0-5/HPF) Ur Squamous Epith Cells (0-5/HPF) Amorphous Sediment Urine Bacteria (None) Urine Mucus (Negative) Ur Culture Indicated? SARS-CoV-2 (PCR) (Negative) 02/09/21 02/09/21 02/09/21 Range/Units 18:32 19:17 19:17 WBC (4.5-11.0) X10^3/uL RBC (4.5-5.9) X10^6/uL Hgb (13.5-17.5) g/dL Hct (41-53) % MCV (80-100) fL MCH (26-34) PG MCHC (30-36) % RDW (11.6-14.8) % Plt Count (150-400) X10^3/uL Neut % (Auto) (50-75) % Lymph % (Auto) (25-40) % Randall % (Auto) (3-14) % Eos % (Auto) (2-4) % Baso % (Auto) (0-2) % Neut # (Auto) (0811-5129) /uL Lymph # (Auto) (2068-3021) /uL Randall # (Auto) (0-900) /uL Eos # (Auto) (0-450) /uL Baso # (Auto) (0-100) /uL PT 13.0 H (10.1-12.7) SECONDS INR 1.1 (0.9-1.3) APTT 31 (26.4-36.2) SECONDS Sodium (137-145) mmol/L Potassium (3.4-5.1) mmol/L Chloride (98-107) mmol/L Carbon Dioxide (22-32) mmol/L BUN (9-20) mg/dL Creatinine (0.66-1.25) mg/dL Estimated GFR (>60) mL/min BUN/Creatinine Ratio (6-22) Glucose (80-110) mg/dL Lactate (0.7-2.1) mmol/L Calcium (8.4-10.2) mg/dL Total Bilirubin (0.2-1.3) mg/dL AST (17-59) IU/L ALT (<50) IU/L Alkaline Phosphatase (38-126) U/L Total Creatine Kinase 70 (55-170) U/L CK-MB (CK-2) TNP CK-MB (CK-2) Rel Index TNP Troponin I 3.960 H* (0.01-0.034) ng/mL Total Protein (6.3-8.2) g/dL Albumin (3.5-5.0) g/dL Globulin (1.7-4.1) g/dL Albumin/Globulin Ratio (1.0-2.8) Lipase (23-300) U/L Procalcitonin 1.17 H (<0.5) ng/mL Urine Color Urine Appearance Urine pH (4.5-8.0) Ur Specific [place] (1.000-1.035) Urine Protein (Negative) Urine Glucose (UA) (Negative) g/dL Urine Ketones (NEGATIVE) Urine Occult Blood (Negative) Urine Nitrate (Negative) Urine Bilirubin (NEGATIVE) Ur Bilirubin Confirm (Negative) Urine Urobilinogen (0.2) E.U./dL Ur Leukocyte Esterase (NEGATIVE) Urine RBC (0-5/HPF) Urine WBC (0-5/HPF) Ur Squamous Epith Cells (0-5/HPF) Amorphous Sediment Urine Bacteria (None) Urine Mucus (Negative) Ur Culture Indicated? SARS-CoV-2 (PCR) (Negative) 02/09/21 02/09/21 02/09/21 Range/Units 19:56 21:15 22:25 WBC (4.5-11.0) X10^3/uL RBC (4.5-5.9) X10^6/uL Hgb (13.5-17.5) g/dL Hct (41-53) % MCV (80-100) fL MCH (26-34) PG MCHC (30-36) % RDW (11.6-14.8) % Plt Count (150-400) X10^3/uL Neut % (Auto) (50-75) % Lymph % (Auto) (25-40) % Randall % (Auto) (3-14) % Eos % (Auto) (2-4) % Baso % (Auto) (0-2) % Neut # (Auto) (3682-8032) /uL Lymph # (Auto) (9492-3033) /uL Randall # (Auto) (0-900) /uL Eos # (Auto) (0-450) /uL Baso # (Auto) (0-100) /uL PT (10.1-12.7) SECONDS INR (0.9-1.3) APTT (26.4-36.2) SECONDS Sodium (137-145) mmol/L Potassium (3.4-5.1) mmol/L Chloride (98-107) mmol/L Carbon Dioxide (22-32) mmol/L BUN (9-20) mg/dL Creatinine (0.66-1.25) mg/dL Estimated GFR (>60) mL/min BUN/Creatinine Ratio (6-22) Glucose (80-110) mg/dL Lactate 1.2 (0.7-2.1) mmol/L Calcium (8.4-10.2) mg/dL Total Bilirubin (0.2-1.3) mg/dL AST (17-59) IU/L ALT (<50) IU/L Alkaline Phosphatase (38-126) U/L Total Creatine Kinase (55-170) U/L CK-MB (CK-2) CK-MB (CK-2) Rel Index Troponin I (0.01-0.034) ng/mL Total Protein (6.3-8.2) g/dL Albumin (3.5-5.0) g/dL Globulin (1.7-4.1) g/dL Albumin/Globulin Ratio (1.0-2.8) Lipase (23-300) U/L Procalcitonin (<0.5) ng/mL Urine Color Brown Urine Appearance Cloudy Urine pH 5.0 (4.5-8.0) Ur Specific [place] >=1.030 H (1.000-1.035) Urine Protein 2+ H (Negative) Urine Glucose (UA) Trace H (Negative) g/dL Urine Ketones Negative (NEGATIVE) Urine Occult Blood 3+ H (Negative) Urine Nitrate Negative (Negative) Urine Bilirubin 2+ H (NEGATIVE) Ur Bilirubin Confirm Positive H (Negative) Urine Urobilinogen 1.0 (0.2) E.U./dL Ur Leukocyte Esterase 2+ H (NEGATIVE) Urine RBC 30-100/hpf H (0-5/HPF) Urine WBC 30-100/hpf H (0-5/HPF) Ur Squamous Epith Cells 0-1 /hpf (0-5/HPF) Amorphous Sediment 2+ Urine Bacteria Many (>30) H (None) Urine Mucus 1+ H (Negative) Ur Culture Indicated? Specimen cultured SARS-CoV-2 (PCR) Negative (Negative) Imaging Data CT scan - abdomen/pelvis: Radiologist's Impression: PROCEDURE: CT ABDOMEN PELVIS W CON INDICATIONS: persistant vomiting TECHNIQUE: After the administration of intravenous contrast, 5 mm thick sections acquired from the diaphragm to the symphysis. 5 mm coronal and sagittal reformats were acquired. For radiation dose reduction, the following was used: automated exposure control, adjustment of mA and/or kV according to patient size. COMPARISON: None. FINDINGS: Image quality: Excellent. ABDOMEN: Lung bases: Atelectasis noted in the dependent portion of the lung bases. Heart size is normal. Dense atherosclerotic calcifications noted in the visualized coronary vasculature. Solid organs: Liver is normal in size and enhancement. Diffuse fatty infiltration of the liver. Gallbladder is within normal limits Biliary system is non dilated. Pancreas enhances normally. Spleen is normal in size and enhancement. No adrenal nodules. Kidneys demonstrate normal size and enhancement, without hydronephrosis. Peritoneum and bowel: Bowel loops demonstrate normal wall thickness and caliber. Numerous diverticuli noted in the left and sigmoid colon. Circumferential wall thickening involving the sigmoid colon which could represent colitis or diverticulitis. There is a small 2.1 centimeter fluid collection situated adjacent to the distal sigmoid colon in the prostate which could represent a small abscess related to diverticulitis or hematoma related to recent prostatectomy. No free air. Visualized appendix is normal. Nodes and vessels: No retroperitoneal or mesenteric adenopathy by size c riteria. Aorta and inferior vena cava are normal in size. Scattered atherosclerotic calcifications involving the abdominal and pelvic vasculature. Miscellaneous: No ventral hernias. PELVIS: Genitourinary: Bladder wall thickness is normal. Miscellaneous: No inguinal hernias or adenopathy. Bones: No suspicious bony lesions. No vertebral body compression fractures. Spine degenerative disc disease and facet arthropathy. IMPRESSION: 1. No dilated loops of bowel. 2. Numerous colonic diverticuli with circumferential wall thickening involving the sigmoid colon concerning for diverticulitis versus colitis. 3. 2.1 centimeter fluid collection adjacent to the distal sigmoid colon in the prostate gland which could represent abscess or small postsurgical hematoma/seroma re lated to the recent prostatectomy. 4. Hepatic steatosis. 5. Atherosclerosis including the coronary vasculature Dictated by: Vita Bustamante MD, PhD on 02/09/2021 at 20:13 Approved by: Vita Bustamante MD, PhD on 02/09/2021 at 20:21 CT scan - head: Radiologist's Impression: [address] [id number] Scan ReportSigned Patient: Jose Javed TMR#: [id number]: 5Acct:[id number]/Sex: 75 / MDate of Service: 02/09/21Loc: EDAccession Number: [id number] Procedure: CT head/brain wo con Ordering Provider: Larisa Ennis D.O. PROCEDURE: CT HEAD/BRAIN WO CON INDICATIONS: severe headache TECHNIQUE: Noncontrast 4.5 mm thick angled axial sections acquired from the foramen magnum to the vertex, with coronal and sagittal reformats. For radiation dose reduction, the following was used: automated exposure control, adjustment of mA and/or kV according to patient size. COMPARISON: None. FINDINGS: Image quality: Excellent. CSF spaces: Basal cisterns are patent. No extra-axial fluid collections. The ventricles are symmetric in size and shape. Brain: No intracranial bleeds or masses. There is cerebral volume loss for age, with resultant ventricular and sulcal prominence. There are periventricular and deep white matter chronic small vessel ischemic changes. There is intracranial internal carotid artery and vertebral artery atherosclerosis. Skull and face: Calvarium and visualized facial bones appear intact, without suspicious lesions. Sinuses: Visualized sinuses and mastoids are clear. IMPRESSION: No acute intracranial disease process. Dictated by: Vita Bustamante MD, PhD on 02/09/2021 at 20:12 US - abdomen: Radiologist's Impression: PROCEDURE: US ABDOMEN LIMITED INDICATIONS: RIGHT UPPER QUADRANT PAIN; ELEVATED LIVER ENZYMES TECHNIQUE: Real-time focused scanning was performed of the abdomen, with image documentation. COMPARISON: None. FINDINGS: Liver is sonographically normal. Gallbladder is sonographically normal. No gallstones. No gallbladder wall thickening. Gallbladder wall measures 1.8 millimeters. No pericholecystic fluid. No sonographic Bu[place] sign. Biliary tree is nondilated. Common bile duct measures 3.4 millimeters. Pancreas is sonographically normal. IMPRESSION: No sonographic evidence of cholelithiasis or cholecystitis. If there is continued clinical concern for cholecystitis, a nuclear medicine HIDA scan should be considered for further evaluation. Dictated by: Vita Bustamante MD, PhD on 02/09/2021 at 22:10 Chest x-ray: Radiologist's Impression: PROCEDURE: XR CHEST 1V INDICATIONS: not feeling well TECHNIQUE: One view of the chest was acquired. COMPARISON: None. FINDINGS: Surgical changes and devices: None. Lungs and pleura: Lungs are clear. No pleural effusions or pneumothorax. Mediastinum: Mediastinal contours appear normal. Heart size is normal. Bones and chest wall: No suspicious bony lesions. Overlying soft tissues appear unremarkable. IMPRESSION: No acute cardiopulmonary disease process. Dictated by: Vita Bustamante MD, PhD on 02/09/2021 at 19:38 ECG Data Attestation: I personally reviewed and interpreted this ECG as follows: Prior ECG tracings: available for review Interpretation: Normal for or interval once a rest from for changes or T-wave inversions similar to previous she does have Q-waves noted in very and AVF to prior EKG MDM Narrative Medical decision making narrative: The patient appears to have infection elevated lactic acid and procalcitonin. Only source at this time is urine which is his brown and cloudy with bacteria. He is started on Zosyn for probable UTI. I do not have another source of infection and do not but suspect meningitis at this time neck is quite supple. He has chronic colitis CT does show colitis. Liver enzymes are slightly elevated ultrasound of the abdomen did not show any abnormality. Patient is also found to have troponin of 3.96, he has Q-waves in inferior leads on his EKG but are similar from previous EKG 4 days ago. He actually states he has been having some chest discomfort he was not sure what it was he thought it was from the vomiting. He is feeling a lot better after morphine and Zofran. He is given aspirin and started on heparin drip as well. The patient is hemodynamically stable he does have 1 blood pressure recording after 1 L of fluid were systolic is in the 90s however after 2nd L is of fluid systolic remains above 100. At this time no vasopressor support is needed. He does not appear to be in septic shock. Discussed case with [facility] hospitalist Dr. Palacios, who happily accepts patient Critical Care Time Critical Care Time Critical Care Time: Yes Total Critical Care Time: 45 Attestation: The high probability of a clinically significant, sudden or life threatening deterioration of the [cardiovascular] system(s) required my full and direct attention, intervention and personal management. The aggregate critical care time was [45] minutes. This time is in addition to time spent performing reported procedures but includes the following: [x] Data Review and interpretation [x] Patient assessment and monitoring of vital signs [x] Documentation [x] Medication orders and management Discharge Plan Departure Patient Disposition: [facility] Clinical Impression: Acute UTI, Acute non-ST elevation myocardial infarction (NSTEMI) Prescriptions: No Action omeprazole 20 MG capsule,delayed release(DR/EC) 10 mg PO QDAY Qty: 0 RF: 0 multivitamin Tablet 1 tab PO DAILY RF: 0 losartan 50 mg Tablet 50 mg PO DAILY RF: 0 aspirin 81 mg Tablet,Delayed Release (Dr/Ec) 81 mg PO DAILY RF: 0 simvastatin [Zocor] 40 mg Tablet 40 mg PO QPM RF: 0 hydrochlorothiazide 12.5 mg Tablet 12.5 mg PO DAILY RF: 0 [facility] 750 mg-100 mg- 1.65 mg-108 mg Tablet 1 tab PO DAILY RF: 0 Tumeric 500 mg 1,000 mg DAILY RF: 0 Tylenol 500 mg BID RF: 0 gabapentin 800 mg Tablet 600 mg PO BID RF: 0 fluticasone propionate 50 mcg/actuation [place],Suspension 1 spray INTRANASAL DAILY RF: 0 loperamide 2 mg Tablet 2 mg PO SEEINSTR RF: 0 Referrals: Shantanu Mejía MD [Primary Care Provider] -
[2021-02-09 19:14] LABS: Lactate (Lactic Acid) 2.6 mmol/L (0.7-2.1)
[2021-02-09 19:15] LABS: Alanine Aminotransferase 129 IU/L (<50); Albumin 3.6 g/dL (3.5-5.0); Albumin Globulin Ratio 1.1 (1.0-2.8); Alkaline Phosphatase 310 U/L (38-126); Aspartate Aminotransferase 241 IU/L (17-59); BUN Creatinine Ratio 22.8 (6-22); Bilirubin Total 1.3 mg/dL (0.2-1.3); Blood Urea Nitrogen 23 mg/dL (9-20); Calcium 8.9 mg/dL (8.4-10.2); Carbon Dioxide 24 mmol/L (22-32); Chloride 95 mmol/L (98-107); Estimated Glomerular Filt Rate > 60.0 mL/min (>60); Globulin 3.2 g/dL (1.7-4.1); Glucose 216 mg/dL (80-110); HEMOLYSIS 31 (0-50); Lipase 34 U/L (23-300); Potassium 3.7 mmol/L (3.4-5.1); Sodium 131 mmol/L (137-145); Total Protein 6.8 g/dL (6.3-8.2)
--- NOTE | 2021-02-09 19:24 | DI.CT.S_ITS ---
PROCEDURE: CT ABDOMEN PELVIS W CON INDICATIONS: persistant vomiting TECHNIQUE: After the administration of intravenous contrast, 5 mm thick sections acquired from the diaphragm to the symphysis. 5 mm coronal and sagittal reformats were acquired. For radiation dose reduction, the following was used: automated exposure control, adjustment of mA and/or kV according to patient size. COMPARISON: None. FINDINGS: Image quality: Excellent. ABDOMEN: Lung bases: Atelectasis noted in the dependent portion of the lung bases. Heart size is normal. Dense atherosclerotic calcifications noted in the visualized coronary vasculature. Solid organs: Liver is normal in size and enhancement. Diffuse fatty infiltration of the liver. Gallbladder is within normal limits Biliary system is non dilated. Pancreas enhances normally. Spleen is normal in size and enhancement. No adrenal nodules. Kidneys demonstrate normal size and enhancement, without hydronephrosis. Peritoneum and bowel: Bowel loops demonstrate normal wall thickness and caliber. Numerous diverticuli noted in the left and sigmoid colon. Circumferential wall thickening involving the sigmoid colon which could represent colitis or diverticulitis. There is a small 2.1 centimeter fluid collection situated adjacent to the distal sigmoid colon in the prostate which could represent a small abscess related to diverticulitis or hematoma related to recent prostatectomy. No free air. Visualized appendix is normal. Nodes and vessels: No retroperitoneal or mesenteric adenopathy by size criteria. Aorta and inferior vena cava are normal in size. Scattered atherosclerotic calcifications involving the abdominal and pelvic vasculature. Miscellaneous: No ventral hernias. PELVIS: Genitourinary: Bladder wall thickness is normal. Miscellaneous: No inguinal hernias or adenopathy. Bones: No suspicious bony lesions. No vertebral body compression fractures. Spine degenerative disc disease and facet arthropathy. IMPRESSION: 1. No dilated loops of bowel. 2. Numerous colonic diverticuli with circumferential wall thickening involving the sigmoid colon concerning for diverticulitis versus colitis. 3. 2.1 centimeter fluid collection adjacent to the distal sigmoid colon in the prostate gland which could represent abscess or small postsurgical hematoma/seroma related to the recent prostatectomy. 4. Hepatic steatosis. 5. Atherosclerosis including the coronary vasculature Dictated by: Vita Bustamante MD, PhD on 02/09/2021 at 20:13 Approved by: Vita Bustamante MD, PhD on 02/09/2021 at 20:21
--- NOTE | 2021-02-09 19:24 | DI.CT.S_ITS ---
PROCEDURE: CT HEAD/BRAIN WO CON INDICATIONS: severe headache TECHNIQUE: Noncontrast 4.5 mm thick angled axial sections acquired from the foramen magnum to the vertex, with coronal and sagittal reformats. For radiation dose reduction, the following was used: automated exposure control, adjustment of mA and/or kV according to patient size. COMPARISON: None. FINDINGS: Image quality: Excellent. CSF spaces: Basal cisterns are patent. No extra-axial fluid collections. The ventricles are symmetric in size and shape. Brain: No intracranial bleeds or masses. There is cerebral volume loss for age, with resultant ventricular and sulcal prominence. There are periventricular and deep white matter chronic small vessel ischemic changes. There is intracranial internal carotid artery and vertebral artery atherosclerosis. Skull and face: Calvarium and visualized facial bones appear intact, without suspicious lesions. Sinuses: Visualized sinuses and mastoids are clear. IMPRESSION: No acute intracranial disease process. Dictated by: Vita Bustamante MD, PhD on 02/09/2021 at 20:12 Approved by: Vita Bustamante MD, PhD on 02/09/2021 at 20:13
--- NOTE | 2021-02-09 19:27 | DI.RAD.S_ITS ---
PROCEDURE: XR CHEST 1V INDICATIONS: not feeling well TECHNIQUE: One view of the chest was acquired. COMPARISON: None. FINDINGS: Surgical changes and devices: None. Lungs and pleura: Lungs are clear. No pleural effusions or pneumothorax. Mediastinum: Mediastinal contours appear normal. Heart size is normal. Bones and chest wall: No suspicious bony lesions. Overlying soft tissues appear unremarkable. IMPRESSION: No acute cardiopulmonary disease process. Dictated by: Vita Bustamante MD, PhD on 02/09/2021 at 19:38 Approved by: Vita Bustamante MD, PhD on 02/09/2021 at 19:38
[2021-02-09 19:40] LABS: Procalcitonin 1.17 ng/mL (<0.5)
--- NOTE | 2021-02-09 19:40 | DI.US.S_ITS ---
PROCEDURE: US ABDOMEN LIMITED INDICATIONS: RIGHT UPPER QUADRANT PAIN; ELEVATED LIVER ENZYMES TECHNIQUE: Real-time focused scanning was performed of the abdomen, with image documentation. COMPARISON: None. FINDINGS: Liver is sonographically normal. Gallbladder is sonographically normal. No gallstones. No gallbladder wall thickening. Gallbladder wall measures 1.8 millimeters. No pericholecystic fluid. No sonographic Bueno sign. Biliary tree is nondilated. Common bile duct measures 3.4 millimeters. Pancreas is sonographically normal. IMPRESSION: No sonographic evidence of cholelithiasis or cholecystitis. If there is continued clinical concern for cholecystitis, a nuclear medicine HIDA scan should be considered for further evaluation. Dictated by: Vita Bustamante MD, PhD on 02/09/2021 at 22:10 Approved by: Vita Bustamante MD, PhD on 02/09/2021 at 22:11
[2021-02-09] MEDS: MORPHINE 4 MG/ML INJ IV (19:44)
[2021-02-09] MEDS: SODIUM CHLORIDE 0.9% 1,000 ML 1000 ML IV ×2 (19:44→22:16)
[2021-02-09 19:51] LABS: INR 1.1 (0.9-1.3)
[2021-02-09 19:53] LABS: PTT Partial Thromboplastin Tim 31 SECONDS (26.4-36.2)
[2021-02-09 20:09] LABS: Appearance Urine UA CLOUDY; Bilirubin Urine UA 2+ (NEGATIVE); Color Urine UA BROWN; Glucose Urine UA TRACE g/dL (Negative); Ketones Urine UA NEGATIVE (NEGATIVE); Leukocyte Esterase Urine UA 2+ (NEGATIVE); Nitrite Urine UA NEGATIVE (Negative); Occult Blood Urine UA 3+ (Negative); Protein Urine UA 2+ (Negative); Specific Gravity Urine UA >=1.030 (1.000-1.035)
[2021-02-09] MEDS: PIPERACILLIN-TAZO 3.375 GM/50 ML FROZ.PIGGY IV (20:13)
[2021-02-09 20:36] LABS: Creatine Kinase 70 U/L (55-170)
[2021-02-09 20:45] LABS: Amorphous Sediment Urine 2+; Bacteria Urine Many (>30); Ictotest Urine Positive (Negative); RBC Urine 30-100/HPF (0-5/HPF); Squamous Epithelial Cell Urine 0-1 /HPF (0-5/HPF); WBC Urine 30-100/HPF (0-5/HPF)
[2021-02-09 20:47] LABS: Culture Indicated Urine Specimen Cultured; Mucus Urine 1+ (Negative)
[2021-02-09 21:03] LABS: Reflexed Lactate in 2 Hours Y
[2021-02-09 21:40] LABS: Lactate 2HR (Lactic Acid Rflx) 1.2 mmol/L (0.7-2.1)
[2021-02-09] MEDS: HEPARIN 5,000 UNIT/ML VIAL 4000 UNIT IV (22:15)
[2021-02-09] MEDS: HEPARIN DRIP 25,000 UNIT/500 ML IV.SOLN 17.418 UNIT IV (22:15)
[2021-02-09] MEDS: ASPIRIN 81 MG CHEW TAB 324 MG PO (22:16)
[2021-02-09 22:43] LABS: COVID19 -Nasal RAPID Negative (Negative)
[2021-02-10] VITALS: BP 98/56; PULSE 87; O2SAT 91
[2021-02-10 00:30] VITALS: BP 93/55; PULSE 86; O2SAT 90
[2021-02-10] MEDS: SODIUM CHLORIDE 0.9% 1,000 ML 200 ML IV (00:40)
== END 2021-02-10 01:28 | disposition short-term general hospital (02) ==
PROVIDERS: Emergency Provider Emergency Medicine; Family Provider Internal Medicine; PCP Internal Medicine
DX: I21.4 Non-ST elevation (NSTEMI) myocardial infarction (principal); N39.0 Urinary tract infection, site not specified; R33.9 Retention of urine, unspecified; R10.9 Unspecified abdominal pain; R53.83 Other fatigue; R50.9 Fever, unspecified; R51.9 Headache, unspecified; R11.15 Cyclical vomiting syndrome unrelated to migraine
CPT/HCPCS: 36415; 70450; 71045; 74177; 76705; 80053; 81001; 82550; 83605; 83690; 84145; 84484; 85025; 85610; 85730; 87040; 87077; 87086; 87635; 93005; 96361; 96365; 96366; 96367; 96375; 99285; 99291; C9803; J1644; J2270; J2405; J2543; Q9967

== ENCOUNTER → 2021-02-09 18:23 | Outpatient (ROUT) | payer MEDICARE, SELFPAY ==
[2021-02-09 18:40] LABS: Alanine Aminotransferase 82 IU/L (<50); Albumin 3.5 g/dL (3.5-5.0); Albumin Globulin Ratio 1.2 (1.0-2.8); Alkaline Phosphatase 234 U/L (38-126); Aspartate Aminotransferase 96 IU/L (17-59); BUN Creatinine Ratio 16.8 (6-22); Bilirubin Total 1.1 mg/dL (0.2-1.3); Blood Urea Nitrogen 19 mg/dL (9-20); Calcium 9.1 mg/dL (8.4-10.2); Carbon Dioxide 24 mmol/L (22-32); Chloride 97 mmol/L (98-107); Estimated Glomerular Filt Rate > 60.0 mL/min (>60); Glucose 284 mg/dL (80-110); HEMOLYSIS < 15 (0-50); Lipase 187 U/L (23-300); Potassium 3.7 mmol/L (3.4-5.1); Sodium 134 mmol/L (137-145); Total Protein 6.5 g/dL (6.3-8.2)
[2021-02-09 18:59] LABS: Add Manual Diff / Slide Review NO; Basophils Absolute Auto 0 /uL (0-100); Basophils Percent Auto 0.2 % (0-2); Eosinophils Absolute Auto 300 /uL (0-450); Eosinophils Percent Auto 2.9 % (2-4); Hematocrit 42.1 % (41-53); Hemoglobin 14.3 g/dL (13.5-17.5); Lymphocytes Absolute Auto 900 /uL (1100-4500); Lymphocytes Percent Auto 8.7 % (25-40); Monocytes Absolute Auto 700 /uL (0-900); Monocytes Percent Auto 7.2 % (3-14); Neutrophils Absolute Auto 8000 /uL (1500-7000); Platelet Count 141 X10^3/uL (150-400); Red Blood Cell Count 4.48 X10^6/uL (4.5-5.9); Red Cell Distribution Width 13.3 % (11.6-14.8); White Blood Cell Count 9.9 X10^3/uL (4.5-11.0)
== END ==
PROVIDERS: Family Provider Internal Medicine; PCP Internal Medicine; Visit Provider Student in an Organized Health Care Education/Training Program
DX: R39.9 Unspecified symptoms and signs involving the genitourinary system (principal); R10.9 Unspecified abdominal pain; R53.83 Other fatigue; R68.83 Chills (without fever)
CPT/HCPCS: 80053; 83690; 85025; 87086

== ENCOUNTER → 2021-02-22 19:01 | Outpatient (ROUT) | payer MEDICARE, SELFPAY ==
[2021-02-22 19:20] LABS: Add Manual Diff / Slide Review NO; Basophils Absolute Auto 100 /uL (0-100); Basophils Percent Auto 0.6 % (0-2); Eosinophils Absolute Auto 400 /uL (0-450); Eosinophils Percent Auto 2.6 % (2-4); Hematocrit 44.4 % (41-53); Hemoglobin 14.9 g/dL (13.5-17.5); Lymphocytes Absolute Auto 1300 /uL (1100-4500); Lymphocytes Percent Auto 9.6 % (25-40); Mean Corpuscular HGB Conc 33.6 % (30-36); Mean Corpuscular Hemoglobin 31.8 PG (26-34); Mean Corpuscular Volume 94.9 fL (80-100); Monocytes Absolute Auto 1300 /uL (0-900); Monocytes Percent Auto 9.7 % (3-14); Neutrophils Absolute Auto 10700 /uL (1500-7000); Neutrophils Percent Auto 77.5 % (50-75); Platelet Count 311 X10^3/uL (150-400); Red Blood Cell Count 4.68 X10^6/uL (4.5-5.9); Red Cell Distribution Width 14.1 % (11.6-14.8); White Blood Cell Count 13.8 X10^3/uL (4.5-11.0)
[2021-02-22 19:30] LABS: Alanine Aminotransferase 38 IU/L (<50); Albumin Globulin Ratio 1.3 (1.0-2.8); Alkaline Phosphatase 137 U/L (38-126); Aspartate Aminotransferase 30 IU/L (17-59); Bilirubin Total 0.7 mg/dL (0.2-1.3); Blood Urea Nitrogen 24 mg/dL (9-20); Carbon Dioxide 23 mmol/L (22-32); Chloride 97 mmol/L (98-107); Glucose 263 mg/dL (80-110); HEMOLYSIS < 15 (0-50); Potassium 4.6 mmol/L (3.4-5.1); Sodium 131 mmol/L (137-145)
[2021-02-22 19:42] LABS: Erythrocyte Sedimentation Rate 4 MM/HR (0-15)
== END ==
PROVIDERS: Family Provider Internal Medicine; PCP Internal Medicine; Visit Provider Internal Medicine
DX: N39.0 Urinary tract infection, site not specified (principal)
CPT/HCPCS: 80053; 85025; 85651; 86140; 87086

== ENCOUNTER → 2021-03-07 12:08 | Outpatient (CLI) | payer MEDICARE, SELFPAY ==
[2021-03-07 14:02] LABS: Prostate Specific Antigen < 0.064 ng/mL (0.10-4.00)
== END ==
PROVIDERS: Family Provider Internal Medicine; PCP Internal Medicine; Referring Provider Student in an Organized Health Care Education/Training Program; Visit Provider Student in an Organized Health Care Education/Training Program
DX: C61 Malignant neoplasm of prostate (principal)
CPT/HCPCS: 36415; 84153

== ENCOUNTER 2021-03-08 21:30 | Emergency (ER) | payer MEDICARE, SELFPAY ==
--- NOTE | 2021-03-08 | DI.CT.S_ITS ---
PROCEDURE: CT ABDOMEN PELVIS W CON INDICATIONS: PLUGGED CATHETER UROLOGY PROBLEMS TECHNIQUE: After the administration of intravenous contrast, 5 mm thick sections acquired from the diaphragm to the symphysis. 5 mm coronal and sagittal reformats were acquired. For radiation dose reduction, the following was used: automated exposure control, adjustment of mA and/or kV according to patient size. COMPARISON: [facility], US, US ABDOMEN COMPLETE, 02/14/2021, 8:24. [facility], CT, CT ABDOMEN PELVIS W CON, 02/09/2021, 19:33. FINDINGS: Image quality: Excellent. ABDOMEN: Lung bases: Minimal atelectasis. No pleural effusion. Heart size is normal. Three-vessel coronary artery calcifications. Aortic valvular calcification. Solid organs: Liver is normal in size. Gallbladder is decompressed. Biliary system is non dilated. Pancreas enhances normally. Spleen is normal in size and enhancement. No adrenal nodules. Kidneys demonstrate normal size and enhancement. Minimal left caliectasis. The left ureter is slightly more prominent compared to the right but not significantly dilated. Peritoneum and bowel: Bowel loops demonstrate normal wall thickness and caliber. No free fluid or air. Nodes and vessels: No retroperitoneal or mesenteric adenopathy by size criteria. Aorta and inferior vena cava are normal in size. Extensive calcified atherosclerotic plaque. Miscellaneous: Small fat containing umbilical hernia. Mild thickening of the ventral abdominal wall superior to the umbilicus which likely represents scarring and is unchanged. PELVIS: Genitourinary: Chu catheter is in place. There is heterogeneous density in the urinary bladder measuring 6.2 x 5.7 x 4.9 cm, (546 and ), estimated volume of 90 cc; and 63 Hounsfield units. This is a medially adjacent to the Chu catheter. There is fullness in the region of the left seminal vesicle, (), appears decreased. Punctate calcification at the bladder dome near the urachus. Bladder is mildly distended. Miscellaneous: No inguinal hernias or adenopathy. Bones: No suspicious bony lesions. No vertebral body compression fractures. IMPRESSION: 1. Heterogeneous density within the urinary bladder near the Chu catheter which is new compared to the prior exam. Intraluminal bladder hematoma measuring 6.2 cm and approximately 90 cc is suspected. Less likely mass given its marked difference in size although small underlying neoplasm cannot be excluded. 2. Fullness in the region of the left seminal vesicle appears decreased. 3. Diverticulosis. No diverticulitis identified This report is concordant with the overnight preliminary interpretation. Additional detail provided. Dictated by: Lencho Albert M.D. on 03/09/2021 at 8:23 Approved by: Lencho Albert M.D. on 03/09/2021 at 8:39
[2021-03-08 21:39] VITALS: BP 153/67; PULSE 69; RESP 18; TEMP 36.8; O2SAT 99; BMI 23.5
[2021-03-08 22:22] LABS: Add Manual Diff / Slide Review NO; Basophils Absolute Auto 100 /uL (0-100); Basophils Percent Auto 1.2 % (0-2); Eosinophils Absolute Auto 800 /uL (0-450); Eosinophils Percent Auto 10.2 % (2-4); Hematocrit 33.1 % (41-53); Hemoglobin 11.5 g/dL (13.5-17.5); Lymphocytes Absolute Auto 2400 /uL (1100-4500); Lymphocytes Percent Auto 31.1 % (25-40); Mean Corpuscular HGB Conc 34.8 % (30-36); Mean Corpuscular Hemoglobin 32.4 PG (26-34); Monocytes Absolute Auto 800 /uL (0-900); Monocytes Percent Auto 10.2 % (3-14); Neutrophils Absolute Auto 3700 /uL (1500-7000); Neutrophils Percent Auto 47.3 % (50-75); Platelet Count 228 X10^3/uL (150-400); Red Blood Cell Count 3.55 X10^6/uL (4.5-5.9); Red Cell Distribution Width 13.9 % (11.6-14.8); White Blood Cell Count 7.7 X10^3/uL (4.5-11.0)
[2021-03-08] MEDS: SODIUM CHLORIDE 0.9% 1,000 ML 125 ML IV (22:24)
--- NOTE | 2021-03-08 22:26 | PC.NURSE ---
Patient has an in-dwelling catheter which is no longer patent; he is voiding around the catheter and the urine is reddish; hematuria was present before in bag before it lost patency.
--- NOTE | 2021-03-08 22:30 | ED_ITS ---
HPI - Male Genitourinary General Chief complaint: Urogenital-Male Stated complaint: catheter is plugged Time Seen by Provider: 03/08/21 21:33 Source: patient Mode of arrival: Ambulatory Limitations: no limitations History of Present Illness HPI Narrative: 75-year-old male nonsmoker with a history of monoclonal gammo hanna of unknown significance and radical prostatectomy about 1 month ago up in [place]. He presents today with a chief complaint of Chu catheter problem and was sent by his urologist. He has had gross hematuria for upwards of 11 days and there is suspected clot causing him issues. He does have some suprapubic tenderness but is not dizzy nor weak or lightheaded. He denies any chest pain or shortness of breath. He denies any fever Related Data Home Medications Medication Instructions Recorded Confirmed omeprazole 10 mg PO QDAY #0 03/27/17 10/07/20 Move Tomveyi B[place]amon 1 tab PO DAILY 09/16/18 10/07/20 aspirin 81 mg PO DAILY 09/16/18 10/07/20 hydrochlorothiazide 12.5 mg PO DAILY 09/16/18 10/07/20 losartan 50 mg PO DAILY 09/16/18 10/07/20 multivitamin 1 tab PO DAILY 09/16/18 10/07/20 simvastatin [Zocor] 40 mg PO QPM 09/16/18 10/07/20 Tylenol 500 mg BID 03/12/19 10/07/20 fluticasone propionate 1 spray INTRANASAL DAILY 03/12/19 10/07/20 gabapentin 600 mg PO BID 03/12/19 10/07/20 Tumeric 1,000 mg DAILY 09/29/19 10/07/20 loperamide 2 mg PO SEEINSTR 07/14/20 10/07/20 Allergies Allergy/AdvReac Type Severity Reaction Status Date / Time No Known Drug Allergies Allergy Unknown Verified 03/08/21 21:39 Review of Systems Constitutional Constitutional: Denies chills, Denies fatigue, Denies fever(s), Denies frequent falls, Denies lethargy and Denies weakness Eyes Eyes: Denies change in vision, Denies eye discharge, Denies irritation and Denies loss of vision ENT Ears, Nose, Mouth, and Throat: Denies change in voice, Denies dizziness, Denies neck pain, Denies sore throat and Denies throat swelling Cardiovascular Cardiovascular: Denies chest pain, Denies irregular heart rhythm, Denies lightheadedness, Denies palpitations, Denies dyspnea, Denies dyspnea on exertion and Denies orthopnea Respiratory Respiratory: Denies cough, Denies dyspnea, Denies dyspnea on exertion and Denies wheezing Gastrointestinal Gastrointestinal: Denies abdominal pain, Denies change in bowel habits, Denies diarrhea, Denies nausea and Denies vomiting Genitourinary Genitourinary: Reports hematuria Genitourinary: Reports hematuria Musculoskeletal Musculoskeletal: Denies neck pain and Denies numbness Integumentary/Breasts Skin/Breast: Denies pruritus, Denies erythema, Denies rash and Denies wounds Neurologic Neurologic: Denies behavioral changes, Denies confusion, Denies dizziness, Denies frequent falls, Denies loss of vision, Denies numbness and Denies weakness Psychiatric Psychiatric: Denies anxiety, Denies behavioral changes, Denies confusion, Denies depression, Denies homicidal ideation and Denies suicidal ideation Endocrine Endocrine: Denies fatigue, Denies flushing and Denies palpitations Hematologic/Lymphatic Hematologic/Lymphatic: Denies easy bruising Allergic/Immunologic Allergic/Immunologic: Denies urticaria, Denies throat swelling and Denies wheezing Patient History Medical History (Updated 03/09/21 @ 00:16 by Kike Fox DO) Diabetes Diverticulitis GERD (gastroesophageal reflux disease) Hypertension Murmur Neuropathy Seasonal allergies Surgical History History of colonoscopy Social History household members: spouse Smoking Status: Never smoker alcohol intake: current Smoking Status: Never smoker alcohol intake frequency: 0-2 drinks per day Alcohol type: wine Substance Use Type: does not use Exam Narrative Exam Narrative: GENERAL: [75] year old patient appears stated age. Well- nourished, well-developed patient, in mild distress. HEAD: Atraumatic. Normocephalic. EYES: Pupils equal round and reactive. Extraocular motions intact. No scleral i cterus. No injection or drainage. ENT: Nose without bleeding, purulent drainage. Throat without erythema, tonsillar hypertrophy or exudate. Airway patent. NECK: Trachea midline. Non tender CARDIOVASCULAR: Regular rate and rhythm without murmurs, gallops, or rubs. RESPIRATORY: Clear to auscultation. Breath sounds equal bilaterally. No wheezes, rales, or rhonchi. GASTROINTESTINAL: Abdomen soft, minimal suprapubic tenderness to palpation, nondistended. Very little fluid in Cuh catheter, gross hematuria EXTREMITIES: No edema or joint tenderness. BACK: Nontender without deformity or crepitance. No flank tenderness. NEURO: AOx3. SKIN: No rash or erythema of visible areas Initial Vital Signs Initial Vital Signs: Vital Signs Temperature 98.2 F 03/08/21 21:39 Pulse Rate 69 03/08/21 21:39 Respiratory Rate 18 03/08/21 21:39 Blood Pressure 153/67 H 03/08/21 21:39 Pulse Oximetry 99 03/08/21 21:39 Course Course Course Narrative: patient has outpatient labs and CT ordered by urology for tomorrow. Given his ongoing bleeding and troubles we will obtain labs and imaging tonight. Orders Ordered: Discontinued Medications Sodium Chloride (Normal Saline 0.9%) 1,000 mls @ 125 mls/hr IV CONT ALEJANDRO Last Infusion: 03/09/21 00:35 Dose: 0 mls/hr Documented by: Admin: 03/08/21 22:24 Dose: 125 mls/hr Documented by: JACKLYN Consultations Consultation #1: call to [facility] upon receipt of CT (Richard is his urologist) happy with history, exam, labs and CT. Recommends DC home, and asks that he contact office in the morning Vital Signs Vital signs: Vital Signs - 8 hr 03/09/21 00:44 Temperature 98.3 F Pulse Rate 59 L Respiratory Rate 18 Blood Pressure 136/63 Pulse Oximetry 99 MDM - Male Genitourinary Lab Data Result diagrams: 03/08/21 22:13 03/08/21 22:13 Labs: Lab Results 03/08/21 03/08/21 03/08/21 Range/Units 22:13 22:13 22:13 WBC 7.7 (4.5-11.0) X10^3/uL RBC 3.55 L (4.5-5.9) X10^6/uL Hgb 11.5 L (13.5-17.5) g/dL Hct 33.1 L (41-53) % MCV 93.0 (80-100) fL MCH 32.4 (26-34) PG MCHC 34.8 (30-36) % RDW 13.9 (11.6-14.8) % Plt Count 228 (150-400) X10^3/uL Neut % (Auto) 47.3 L (50-75) % Lymph % (Auto) 31.1 (25-40) % Stevens % (Auto) 10.2 (3-14) % Eos % (Auto) 10.2 H (2-4) % Baso % (Auto) 1.2 (0-2) % Neut # (Auto) 3700 (3703-4050) /uL Lymph # (Auto) 2400 (1684-2737) /uL Stevens # (Auto) 800 (0-900) /uL Eos # (Auto) 800 H (0-450) /uL Baso # (Auto) 100 (0-100) /uL PT 11.8 (10.1-12.7) SECONDS INR 1.0 (0.9-1.3) Sodium 138 (137-145) mmol/L Potassium 3.7 (3.4-5.1) mmol/L Chloride 102 (98-107) mmol/L Carbon Dioxide 26 (22-32) mmol/L BUN 18 (9-20) mg/dL Creatinine 1.00 (0.66-1.25) mg/dL Estimated GFR > 60.0 (>60) mL/min BUN/Creatinine Ratio 18.0 (6-22) Glucose 167 H (80-110) mg/dL Calcium 9.3 (8.4-10.2) mg/dL Total Bilirubin 0.3 (0.2-1.3) mg/dL AST 23 (17-59) IU/L ALT 15 (<50) IU/L Alkaline Phosphatase 106 (38-126) U/L Total Protein 7.2 (6.3-8.2) g/dL Albumin 4.0 (3.5-5.0) g/dL Globulin 3.2 (1.7-4.1) g/dL Albumin/Globulin Ratio 1.3 (1.0-2.8) Blood Type Antibody Screen 03/08/21 Range/Units 22:22 WBC (4.5-11.0) X10^3/uL RBC (4.5-5.9) X10^6/uL Hgb (13.5-17.5) g/dL Hct (41-53) % MCV (80-100) fL MCH (26-34) PG MCHC (30-36) % RDW (11.6-14.8) % Plt Count (150-400) X10^3/uL Neut % (Auto) (50-75) % Lymph % (Auto) (25-40) % Stevens % (Auto) (3-14) % Eos % (Auto) (2-4) % Baso % (Auto) (0-2) % Neut # (Auto) (7974-7158) /uL Lymph # (Auto) (4393-4554) /uL Stevens # (Auto) (0-900) /uL Eos # (Auto) (0-450) /uL Baso # (Auto) (0-100) /uL PT (10.1-12.7) SECONDS INR (0.9-1.3) Sodium (137-145) mmol/L Potassium (3.4-5.1) mmol/L Chloride (98-107) mmol/L Carbon Dioxide (22-32) mmol/L BUN (9-20) mg/dL Creatinine (0.66-1.25) mg/dL Estimated GFR (>60) mL/min BUN/Creatinine Ratio (6-22) Glucose (80-110) mg/dL Calcium (8.4-10.2) mg/dL Total Bilirubin (0.2-1.3) mg/dL AST (17-59) IU/L ALT (<50) IU/L Alkaline Phosphatase (38-126) U/L Total Protein (6.3-8.2) g/dL Albumin (3.5-5.0) g/dL Globulin (1.7-4.1) g/dL Albumin/Globulin Ratio (1.0-2.8) Blood Type O Negative Antibody Screen Negative [facility] Narrative Medical decision making narrative: Patient with ongoing hematuria after her recent radical prostatectomy. He is not dizzy nor weak or lightheaded. He does have gross hematuria which likely contributed to clotting that clogged his Chu catheter. His vital signs are stable, hemoglobin has dropped a bit but still well above the transfusing cutoff. He was irrigated newly to clear, CT demonstrates hematoma within the bladder. A been in contact with the patient's urologist who was aware of this scenario and request patient be discharged with instructions to follow-up Discharge Plan Departure Patient Disposition: Home Clinical Impression: Hematuria Qualifiers: Hematuria type: gross Qualified Code(s): R31.0 - Gross hematuria Complication of Chu catheter Qualifiers: Encounter type: initial encounter Qualified Code(s): T83.9XXA - Unspecified complication of genitourinary prosthetic device, implant and graft, initial encounter Instructions: DI for Hematuria Activity Restrictions/Additional Instructions: *You have been diagnosed with [gross hematuria and Chu catheter problem, since resolved with flushing.] *What to do: *Please continue to take your regular medications as directed. [ ] New medication prescriptions sent to your pharmacy: [ ] [ ] New medication written as a paper prescription [ ] No new medications given *Please follow up with your primary care provider in 2-3 days, call for an appointment. Let them know you were seen in the Emergency Department and that we ask that you be seen in follow up. We will electronically transmit a record of today's note if your PCP is in our system *If you do not have a primary care provider please contact the [facility] Resource line at [phone]. They will ask some questions about your medical history and help get you set up with a doctor in the community. *Return to Emergency Department if you should have any new, worsening or concerning symptoms, such as [fever greater than 101 F, shaking chills, worsening pain, persistent vomiting or other bothersome symptoms] Prescriptions: No Action omeprazole 20 MG capsule,delayed release(DR/EC) 10 mg PO QDAY Qty: 0 RF: 0 multivitamin Tablet 1 tab PO DAILY RF: 0 losartan 50 mg Tablet 50 mg PO DAILY RF: 0 aspirin 81 mg Tablet,Delayed Release (Dr/Ec) 81 mg PO DAILY RF: 0 simvastatin [Zocor] 40 mg Tablet 40 mg PO QPM RF: 0 hydrochlorothiazide 12.5 mg Tablet 12.5 mg PO DAILY RF: 0 Move [facility] 750 mg-100 mg- 1.65 mg-108 mg Tablet 1 tab PO DAILY RF: 0 Tumeric 500 mg 1,000 mg DAILY RF: 0 Tylenol 500 mg BID RF: 0 gabapentin 800 mg Tablet 600 mg PO BID RF: 0 fluticasone propionate 50 mcg/actuation [place],Suspension 1 spray INTRANASAL DAILY RF: 0 loperamide 2 mg Tablet 2 mg PO SEEINSTR RF: 0 Referrals: Shantanu Mejía MD [Primary Care Provider] -
[2021-03-08 22:32] LABS: Prothrombin Time 11.8 SECONDS (10.1-12.7)
[2021-03-08 22:36] LABS: Alanine Aminotransferase 15 IU/L (<50); Albumin Globulin Ratio 1.3 (1.0-2.8); Alkaline Phosphatase 106 U/L (38-126); Aspartate Aminotransferase 23 IU/L (17-59); Bilirubin Total 0.3 mg/dL (0.2-1.3); Blood Urea Nitrogen 18 mg/dL (9-20); Calcium 9.3 mg/dL (8.4-10.2); Carbon Dioxide 26 mmol/L (22-32); Chloride 102 mmol/L (98-107); Estimated Glomerular Filt Rate > 60.0 mL/min (>60); Globulin 3.2 g/dL (1.7-4.1); Glucose 167 mg/dL (80-110); HEMOLYSIS < 15 (0-50); Potassium 3.7 mmol/L (3.4-5.1); Sodium 138 mmol/L (137-145); Total Protein 7.2 g/dL (6.3-8.2)
[2021-03-09 00:44] VITALS: BP 136/63; PULSE 59; RESP 18; TEMP 36.8; O2SAT 99
== END 2021-03-09 00:46 | disposition home or self-care (01) ==
PROVIDERS: Emergency Provider Emergency Medicine; Family Provider Internal Medicine; PCP Internal Medicine
DX: R31.0 Gross hematuria (principal); T83.9XXA Unspecified complication of genitourinary prosthetic device, implant and graft, initial encounter
CPT/HCPCS: 36415; 74177; 80053; 85025; 85610; 86850; 86900; 86901; 96360; 96361; 99284; Q9967

== ENCOUNTER 2021-03-24 10:17 | Emergency (ER) | payer MEDICARE, SELFPAY ==
[2021-03-24] VITALS (30 sets, daily range): BP systolic 95–135; BP diastolic 53–86; PULSE 91–154; RESP 17–39; TEMP 36.7; O2SAT 88–99; BMI 25.0
--- NOTE | 2021-03-24 10:23 | DI.RAD.S_ITS ---
PROCEDURE: XR RIBS LT MIN 3V W CXR1V INDICATIONS: fall TECHNIQUE: 2 views of the left ribs were acquired, along with a single view chest. COMPARISON: [facility], CR, XR CHEST 1V, 02/09/2021, 19:31. FINDINGS: Surgical changes and devices: None. Bones and chest wall: No fractures or dislocations. No suspicious bony lesions. Overlying soft tissues appear unremarkable. Lungs and pleura: No pleural effusions or pneumothorax. Lungs appear clear. Mediastinum: Mediastinal contours appear normal. Heart size is normal. IMPRESSION: No displaced rib fracture. No acute cardiopulmonary disease process. Dictated by: Vita Bustamante MD, PhD on 03/24/2021 at 12:13 Approved by: Vita Bustamante MD, PhD on 03/24/2021 at 12:16
--- NOTE | 2021-03-24 10:23 | DI.RAD.S_ITS ---
PROCEDURE: XR SHOULDER LT MIN 2V INDICATIONS: fall TECHNIQUE: 3 views of the shoulder were acquired. COMPARISON: None. FINDINGS: Bones: No fractures or dislocations. No suspicious bony lesions. Visualized ribs appear intact. Soft tissues: No suspicious soft tissue calcifications. IMPRESSION: No fracture. No acute osseous lesion. If symptoms and/or clinical suspicion for pathology persists, further assessment with repeat radiographs (7-10 days) or advanced imaging (e.g. CT, MRI or bone scan) should be considered. Dictated by: Vita Bustamante MD, PhD on 03/24/2021 at 12:16 Approved by: Vita Bustamante MD, PhD on 03/24/2021 at 12:17
--- NOTE | 2021-03-24 10:31 | ED_ITS ---
HPI - Chest Pain General Chief Complaint: Chest Pain Stated Complaint: heart's acting up, referred by Kym Time Seen by Provider: 03/24/21 10:28 Source: patient Mode of arrival: Ambulatory Limitations: no limitations History of Present Illness HPI narrative: Patient is a 75-year-old male with a history of paroxysmal atrial fibrillation on Eliquis with recent sepsis from UTI and radical prostatectomy presenting today with AFib with RVR. He says he has a what she developed atrial fibrillation with his recent infection and has been monitoring his heart rate on his walked. Today he did not feel quite right and noticed that his heart rate was in the 140s. He says it is usually in the 90s. He denies any dizziness or lightheadedness. He went to his primary care doctor who promptly sent him to the [facility] are with heart rate 142. He denies any dizziness or lightheadedness. He has no fever or chills. He also fell off of his boat 4 days ago during his fall he hit the left side of his ribs and left shoulder on the side of the boat. He did not hit his head or lose consciousness was unable to get back into the boat he did try to reach up with his left arm and pull himself into the boat but unfortunately there is no bladder. At which point he swam about 150 yd in to his show or. He states took about 2 hours for him to stop shivering. Since then he has complained of left shoulder pain and some mild rib pain and contusion. No other issues. MD complaint: chest pain Onset (ago): hour(s) Duration: constant Related Data Home Medications Medication Instructions Recorded Confirmed omeprazole 10 mg PO QDAY #0 03/27/17 10/07/20 [facility] 1 tab PO DAILY 09/16/18 10/07/20 aspirin 81 mg PO DAILY 09/16/18 10/07/20 hydrochlorothiazide 12.5 mg PO DAILY 09/16/18 10/07/20 losartan 50 mg PO DAILY 09/16/18 10/07/20 multivitamin 1 tab PO DAILY 09/16/18 10/07/20 simvastatin [Zocor] 40 mg PO QPM 09/16/18 10/07/20 Tylenol 500 mg BID 03/12/19 10/07/20 fluticasone propionate 1 spray INTRANASAL DAILY 03/12/19 10/07/20 gabapentin 600 mg PO BID 03/12/19 10/07/20 Tumeric 1,000 mg DAILY 09/29/19 10/07/20 loperamide 2 mg PO SEEINSTR 07/14/20 10/07/20 apixaban [Eliquis] 5 mg PO BID 03/24/21 03/24/21 metoprolol succinate 50 mg PO DAILY 03/24/21 03/24/21 spironolactone 25 mg PO DAILY 03/24/21 03/24/21 Previous Rx's Medication Instructions Recorded amiodarone 400 mg PO DAILY #30 tab 03/24/21 hydrocodone-acetaminophen 1 tab PO Q6H PRN #10 tab 03/24/21 Allergies Allergy/AdvReac Type Severity Reaction Status Date / Time No Known Drug Allergies Allergy Unknown Verified 03/24/21 10:24 Review of Systems Review of Systems ROS Unobtainable: All systems reviewed & are unremarkable except as noted in HPI and below Constitutional Constitutional: Denies chills, Denies fever(s), Denies lethargy and Denies weakness Eyes Eyes: Denies change in vision, Denies eye discharge, Denies irritation and Denies loss of vision Cardiovascular Cardiovascular: Reports as per HPI, Denies chest pain, Reports rapid heart rate, Denies lightheadedness, Denies radiating jaw, neck or arm pain, Denies dyspnea and Denies dyspnea on exertion Respiratory Respiratory: Reports pain with cough, Denies dyspnea and Denies dyspnea on exertion Gastrointestinal Gastrointestinal: Denies abdominal pain, Denies change in bowel habits, Denies diarrhea, Denies nausea and Denies vomiting Musculoskeletal Musculoskeletal: Reports as per HPI and Reports arthralgias (Left shoulder) Integumentary/Breasts Skin/Breast: Denies pruritus, Denies erythema, Denies rash and Denies wounds Neurologic Neurologic: Denies loss of vision and Denies weakness Patient History Medical History (Updated 03/24/21 @ 13:13 by Larisa Ennis DO) Diabetes Diverticulitis GERD (gastroesophageal reflux disease) Hypertension Murmur Neuropathy Seasonal allergies Surgical History History of colonoscopy Social History household members: spouse Smoking Status: Never smoker alcohol intake: current Smoking Status: Never smoker alcohol intake frequency: 3 or more drinks per day Alcohol type: wine Substance Use Type: does not use Exam Initial Vital Signs Initial Vital Signs: Vital Signs Pulse Rate 132 H 03/24/21 10:22 Pulse Oximetry 99 03/24/21 10:22 GENERAL: Alert well-appearing 75-year-old and in no acute distress. HEENT: Head atraumatic,EOMI, pupils reactive, face symmetric, moist mucous membranes NECK: No vertebral tenderness or step-offs full flexion extension and rotation CARDIOVASCULAR: Irregularly irregular tachycardic no murmur, contusion noted left ribs RESPIRATORY: Breath sounds equal bilaterally, no wheezes rales or rhonchi. ABDOMEN: Soft, nontender. Normoactive bowel sounds all 4 quadrants. No gu arding or rebound. EXTREMITIES: Normal range of motion, no clubbing or edema. Neurovascularly intact. Tender left shoulder NEUROLOGICAL: Alert and oriented x4.Normal gait and speech. Cranial nerves II through XII grossly intact. SKIN: Warm, dry, no laceration, no petechiae, no rashes or lesions. Procedures Cardioversion Consent Signed: Yes Stability: Stable Number of attempts (shocks): 2 Joules used: 200 Cardiac rhythm post-cardioversion: a. fib Procedural Sedation Consent signed: Yes Time out performed: Yes Indication: cardioversion ASA Class: I Mallampati Airway Classification: Class I Preparation: cafeteria monitor applied, pulse oximeter, capnometry used and supplemental O2 applied IV Etomidate dose (mg): 7 Intraservice time/total sedation time (min): 12 ED Sedation Level: Moderate (Concious) Patient Tolerated Procedure: Well Complications: none Course Orders Ordered: ED Orders 03/24/21 10:23 XR ribs LT min 3V w CXR1V Stat XR shoulder LT min 2V Stat EKG-12 Lead Stat 03/24/21 10:24 Complete Blood Count AUTO DIFF Stat Comprehensive Metabolic Panel Stat Lipase Stat Magnesium Stat Partial Thromboplastin Time Stat Prothrombin Time INR Stat Troponin & CK Cardiac Panel Stat 03/24/21 11:26 COVID19 -Nasal swab/Pre-Proc Stat Discontinued Medications Amiodarone HCl (Amiodarone 200 Mg Tablet) 400 mg PO NOW ONE Stop: 03/24/21 13:04 Last Admin: 03/24/21 13:16 Dose: 400 mg Documented by: KIMMY Diltiazem HCl (Diltiazem 5 Mg/Ml Sdv) 10 mg IV NOW ONE Stop: 03/24/21 10:46 Last Admin: 03/24/21 10:54 Dose: 10 mg Documented by: NAHID Diltiazem HCl (Diltiazem 5 Mg/Ml Sdv) 10 mg IV NOW ONE Stop: 03/24/21 11:21 Last Admin: 03/24/21 11:26 Dose: 10 mg Documented by: ANNEL Etomidate (Etomidate 2 Mg/Ml 10 Ml Vial) 7 mg IV NOW ONE Stop: 03/24/21 11:51 Last Admin: 03/24/21 12:32 Dose: 7 mg Documented by: NAHID Vital Signs Vital signs: Vital Signs - 8 hr 03/24/21 10:22 03/24/21 10:23 03/24/21 10:24 Temperature 98.1 F Pulse Rate 132 H 154 H 142 H Respiratory Rate 21 21 Blood Pressure 135/86 135/56 L Pulse Oximetry 99 98 99 03/24/21 10:30 03/24/21 10:31 03/24/21 10:45 Temperature Pulse Rate 152 H 152 H 137 H Respiratory Rate 21 30 H 25 H Blood Pressure 106/78 125/64 Pulse Oximetry 97 97 96 03/24/21 10:54 03/24/21 11:07 03/24/21 11:10 Temperature Pulse Rate 153 H 118 H Respiratory Rate 25 H Blood Pressure 125/63 117/61 Pulse Oximetry 88 L 98 03/24/21 11:15 03/24/21 11:28 03/24/21 11:30 Temperature Pulse Rate 114 H 118 H 98 H Respiratory Rate 18 23 21 Blood Pressure 111/56 L 117/80 95/53 L Pulse Oximetry 97 96 97 03/24/21 11:45 03/24/21 12:00 03/24/21 12:05 Temperature Pulse Rate 91 H 106 H 94 H Respiratory Rate 21 22 21 Blood Pressure 103/72 110/61 Pulse Oximetry 95 95 96 03/24/21 12:10 03/24/21 12:15 03/24/21 12:20 Temperature Pulse Rate 102 H 101 H 107 H Respiratory Rate 39 H 33 H 22 Blood Pressure 105/66 Pulse Oximetry 96 96 96 03/24/21 12:25 03/24/21 12:30 03/24/21 12:35 Temperature Pulse Rate 99 H 111 H 91 H Respiratory Rate 18 21 18 Blood Pressure 113/60 121/65 109/73 Pulse Oximetry 97 98 97 03/24/21 12:40 03/24/21 12:45 03/24/21 12:50 Temperature Pulse Rate 110 H 105 H 103 H Respiratory Rate 20 18 17 Blood Pressure 121/79 120/83 Pulse Oximetry 96 98 98 03/24/21 12:51 03/24/21 12:55 03/24/21 13:00 Temperature Pulse Rate 97 H 97 H 117 H Respiratory Rate 22 24 22 Blood Pressure 109/76 109/67 Pulse Oximetry 98 96 96 03/24/21 13:05 03/24/21 13:30 03/24/21 13:31 Temperature Pulse Rate 93 H 108 H 104 H Respiratory Rate 22 21 22 Blood Pressure 112/57 L 120/70 Pulse Oximetry 94 95 96 MDM - Chest Pain Lab Data Attestation: I reviewed the patient's lab results. Result diagrams: 03/24/21 10:24 03/24/21 10:24 Labs: Lab Results 03/24/21 03/24/21 03/24/21 Range/Units 10:24 10:24 10:24 WBC 9.6 (4.5-11.0) X10^3/uL RBC 3.95 L (4.5-5.9) X10^6/uL Hgb 12.6 L (13.5-17.5) g/dL Hct 37.8 L (41-53) % MCV 95.7 (80-100) fL MCH 31.8 (26-34) PG MCHC 33.2 (30-36) % RDW 15.1 H (11.6-14.8) % Plt Count 202 (150-400) X10^3/uL Neut % (Auto) 61.7 (50-75) % Lymph % (Auto) 20.7 L (25-40) % [place] % (Auto) 11.8 (3-14) % Eos % (Auto) 5.1 H (2-4) % Baso % (Auto) 0.7 (0-2) % Neut # (Auto) 5900 (5313-5715) /uL Lymph # (Auto) 2000 (4513-1753) /uL [place] # (Auto) 1100 H (0-900) /uL Eos # (Auto) 500 H (0-450) /uL Baso # (Auto) 100 (0-100) /uL PT 15.6 H (10.1-12.7) SECONDS INR 1.4 H (0.9-1.3) APTT 36 D (26.4-36.2) SECONDS Sodium 137 (137-145) mmol/L Potassium 4.3 (3.4-5.1) mmol/L Chloride 102 (98-107) mmol/L Carbon Dioxide 28 (22-32) mmol/L BUN 12 (9-20) mg/dL Creatinine 0.87 (0.66-1.25) mg/dL Estimated GFR > 60.0 (>60) mL/min BUN/Creatinine Ratio 13.8 (6-22) Glucose 178 H (80-110) mg/dL Calcium 9.5 (8.4-10.2) mg/dL Magnesium 1.7 (1.6-2.3) mg/dL Total Bilirubin 0.6 (0.2-1.3) mg/dL AST 23 (17-59) IU/L ALT 14 (<50) IU/L Alkaline Phosphatase 97 (38-126) U/L Total Creatine Kinase 31 L (55-170) U/L CK-MB (CK-2) TNP CK-MB (CK-2) Rel Index TNP Troponin I 0.015 (0.01-0.034) ng/mL Total Protein 7.7 (6.3-8.2) g/dL Albumin 4.2 (3.5-5.0) g/dL Globulin 3.5 (1.7-4.1) g/dL Albumin/Globulin Ratio 1.2 (1.0-2.8) Lipase 50 (23-300) U/L SARS-CoV-2 (PCR) (Negative) 03/24/21 Range/Units 11:26 WBC (4.5-11.0) X10^3/uL RBC (4.5-5.9) X10^6/uL Hgb (13.5-17.5) g/dL Hct (41-53) % MCV (80-100) fL MCH (26-34) PG MCHC (30-36) % RDW (11.6-14.8) % Plt Count (150-400) X10^3/uL Neut % (Auto) (50-75) % Lymph % (Auto) (25-40) % [place] % (Auto) (3-14) % Eos % (Auto) (2-4) % Baso % (Auto) (0-2) % Neut # (Auto) (8475-2555) /uL Lymph # (Auto) (4330-2060) /uL [place] # (Auto) (0-900) /uL Eos # (Auto) (0-450) /uL Baso # (Auto) (0-100) /uL PT (10.1-12.7) SECONDS INR (0.9-1.3) APTT (26.4-36.2) SECONDS Sodium (137-145) mmol/L Potassium (3.4-5.1) mmol/L Chloride (98-107) mmol/L Carbon Dioxide (22-32) mmol/L BUN (9-20) mg/dL Creatinine (0.66-1.25) mg/dL Estimated GFR (>60) mL/min BUN/Creatinine Ratio (6-22) Glucose (80-110) mg/dL Calcium (8.4-10.2) mg/dL Magnesium (1.6-2.3) mg/dL Total Bilirubin (0.2-1.3) mg/dL AST (17-59) IU/L ALT (<50) IU/L Alkaline Phosphatase (38-126) U/L Total Creatine Kinase (55-170) U/L CK-MB (CK-2) CK-MB (CK-2) Rel Index Troponin I (0.01-0.034) ng/mL Total Protein (6.3-8.2) g/dL Albumin (3.5-5.0) g/dL Globulin (1.7-4.1) g/dL Albumin/Globulin Ratio (1.0-2.8) Lipase (23-300) U/L SARS-CoV-2 (PCR) Negative (Negative) Imaging Data Chest x-ray: Radiologist's Impression: PROCEDURE: XR RIBS LT MIN 3V W CXR1V INDICATIONS: fall TECHNIQUE: 2 views of the left ribs were acquired, along with a single view chest. COMPARISON: [facility], XR CHEST 1V, 02/09/2021, 19:31. FINDINGS: Surgical changes and devices: None. Bones and chest wall: No fractures or dislocations. No suspicious bony lesions. Overlying soft tissues appear unremarkable. Lungs and pleura: No pleural effusions or pneumothorax. Lungs appear clear. Mediastinum: Mediastinal contours appear normal. Heart size is normal. IMPRESSION: No displaced rib fracture. No acute cardiopulmonary disease process. Dictated by: Vita Bustamante MD, PhD on 03/24/2021 at 12:13 Extremity x-ray #1: Radiologist's Impression: PROCEDURE: XR SHOULDER LT MIN 2V INDICATIONS: fall TECHNIQUE: 3 views of the shoulder were acquired. COMPARISON: None. FINDINGS: Bones: No fractures or dislocations. No suspicious bony lesions. Visualized ribs appear intact. Soft tissues: No suspicious soft tissue calcifications. IMPRESSION: No fracture. No acute osseous lesion. If symptoms and/or clinical suspicion for pathology persists, further assessment with repeat radiographs (7-10 days) or advanced imaging (e.g. CT, MRI or bone scan) should be considered. Dictated by: Vita Bustamante MD, PhD on 03/24/2021 at 12:16 ECG Data Attestation: I personally reviewed and interpreted this ECG as follows: Prior ECG tracings: available for review Interpretation: RVR rate [address] changes piece EKG does show normal sinus rhythm EKG 2. Atrial fibrillation rate 1 0 MDM Narrative Medical decision making narrative: Attempted cardioversion with patient to attempt unfortunately neither converted the patient. Heart rate has slowed some. Initially tried to contact patient's [employer] filter [employer] Dr. Cavanaugh but he is out of office [address], updated on patient's symptoms and current treatments. At this time recommends additional amiodarone 400 mg twice a day for 1 week then 200 mg once a day and to follow up with his [employer] Patient does not have fracture in his left shoulder up is quite tender. I have written him a prescription for [place] has that he is able to get some sleep. Discharge Plan Departure Patient Disposition: Home Clinical Impression: Atrial fibrillation with rapid ventricular response Instructions: DI for Atrial Fibrillation Activity Restrictions/Additional Instructions: *You have been diagnosed with atrial fibrillation *What to do: At this time unfortunately despite his cardioversion you were still in atrial fibrillation. Will add medication to her regimen and please see her [employer] will likely attempt cardioversion about 1-2 weeks *Continue to take medications as directed--> SENT TO [facility] IN [place] Amiodarone 400 mg twice a day for 7 days and 200 mg once a day PLEASE CONTINUE ALL OTHER MEDICATIONS SPECIALLY ELIQUIS *Follow up with your primary care provider in 2-3 days *Return to ER if you should have the increased heart rate chest pain palpitations dizziness or lightheadedness or any new, worsening or concerning symptoms Prescriptions: New amiodarone 200 mg tablet 400 mg PO DAILY Qty: 30 RF: 0 hydrocodone-acetaminophen 5-325 mg tablet 1 tab PO Q6H PRN (Reason: pain) Qty: 10 RF: 0 No Action omeprazole 20 MG capsule,delayed release(DR/EC) 10 mg PO QDAY Qty: 0 RF: 0 multivitamin Tablet 1 tab PO DAILY RF: 0 losartan 50 mg Tablet 50 mg PO DAILY RF: 0 aspirin 81 mg Tablet,Delayed Release (Dr/Ec) 81 mg PO DAILY RF: 0 simvastatin [Zocor] 40 mg Tablet 40 mg PO QPM RF: 0 hydrochlorothiazide 12.5 mg Tablet 12.5 mg PO DAILY RF: 0 [facility] 750 mg-100 mg- 1.65 mg-108 mg Tablet 1 tab PO DAILY RF: 0 Tumeric 500 mg 1,000 mg DAILY RF: 0 Tylenol 500 mg BID RF: 0 gabapentin 800 mg Tablet 600 mg PO BID RF: 0 fluticasone propionate 50 mcg/actuation [place],Suspension 1 spray INTRANASAL DAILY RF: 0 loperamide 2 mg Tablet 2 mg PO SEEINSTR RF: 0 metoprolol succinate 50 mg tablet extended release 24 hr 50 mg PO DAILY RF: 0 spironolactone 25 mg tablet 25 mg PO DAILY RF: 0 Eliquis 5 mg tablet 5 mg PO BID RF: 0 Referrals: Shantanu Mejía MD [Primary Care Provider] -
[2021-03-24 10:33] LABS: Add Manual Diff / Slide Review NO; Basophils Absolute Auto 100 /uL (0-100); Basophils Percent Auto 0.7 % (0-2); Eosinophils Absolute Auto 500 /uL (0-450); Eosinophils Percent Auto 5.1 % (2-4); Hematocrit 37.8 % (41-53); Hemoglobin 12.6 g/dL (13.5-17.5); Lymphocytes Absolute Auto 2000 /uL (1100-4500); Lymphocytes Percent Auto 20.7 % (25-40); Mean Corpuscular HGB Conc 33.2 % (30-36); Mean Corpuscular Hemoglobin 31.8 PG (26-34); Mean Corpuscular Volume 95.7 fL (80-100); Monocytes Absolute Auto 1100 /uL (0-900); Monocytes Percent Auto 11.8 % (3-14); Neutrophils Absolute Auto 5900 /uL (1500-7000); Neutrophils Percent Auto 61.7 % (50-75); Platelet Count 202 X10^3/uL (150-400); Red Blood Cell Count 3.95 X10^6/uL (4.5-5.9); Red Cell Distribution Width 15.1 % (11.6-14.8); White Blood Cell Count 9.6 X10^3/uL (4.5-11.0)
[2021-03-24 10:39] LABS: INR 1.4 (0.9-1.3); Prothrombin Time 15.6 SECONDS (10.1-12.7)
[2021-03-24 10:42] LABS: PTT Partial Thromboplastin Tim 36 SECONDS (26.4-36.2)
[2021-03-24 10:46] LABS: Alanine Aminotransferase 14 IU/L (<50); Albumin 4.2 g/dL (3.5-5.0); Albumin Globulin Ratio 1.2 (1.0-2.8); Alkaline Phosphatase 97 U/L (38-126); Aspartate Aminotransferase 23 IU/L (17-59); BUN Creatinine Ratio 13.8 (6-22); Bilirubin Total 0.6 mg/dL (0.2-1.3); Blood Urea Nitrogen 12 mg/dL (9-20); Calcium 9.5 mg/dL (8.4-10.2); Carbon Dioxide 28 mmol/L (22-32); Chloride 102 mmol/L (98-107); Creatine Kinase 31 U/L (55-170); Estimated Glomerular Filt Rate > 60.0 mL/min (>60); Globulin 3.5 g/dL (1.7-4.1); Glucose 178 mg/dL (80-110); HEMOLYSIS < 15 (0-50); Lipase 50 U/L (23-300); Magnesium 1.7 mg/dL (1.6-2.3); Potassium 4.3 mmol/L (3.4-5.1); Sodium 137 mmol/L (137-145); Total Protein 7.7 g/dL (6.3-8.2)
[2021-03-24] MEDS: dilTIAZem 5 MG/ML SDV 10 MG IV ×2 (10:54→11:26)
[2021-03-24 10:56] LABS: Troponin I 0.015 ng/mL (0.01-0.034)
[2021-03-24 12:12] LABS: COVID19 -Nasal RAPID Negative (Negative)
[2021-03-24] MEDS: ETOMIDATE 2 MG/ML 10 ML VIAL 7 MG IV (12:32)
[2021-03-24] MEDS: AMIODARONE 200 MG TABLET 400 MG PO (13:16)
== END 2021-03-24 13:50 | disposition home or self-care (01) ==
PROVIDERS: Emergency Provider Emergency Medicine; Family Provider Internal Medicine; PCP Internal Medicine
DX: I48.20 Chronic atrial fibrillation, unspecified (principal); Z79.01 Long term (current) use of anticoagulants; R07.81 Pleurodynia; M25.512 Pain in left shoulder; R05 Cough; W19.XXXA Unspecified fall, initial encounter; Z20.822 Contact with and (suspected) exposure to COVID-19
CPT/HCPCS: 71101; 73030; 80053; 82550; 83690; 83735; 84484; 85025; 85610; 85730; 87635; 92960; 93005; 93010; 96374; 96376; 99152; 99285; 99291; C9803

== ENCOUNTER → 2021-06-07 13:36 | Outpatient (CLI) | payer MEDICARE, SELFPAY ==
--- NOTE | 2021-06-07 | DI.ECHO.S_ITS ---
[place]---------[facility] +---------+ : : [address] : : : : [id number] : : : : Phone: [phone] Echocardiogram Report + + :Name: FE ODOM Study Date: 06/07/2021 Height: 67 in : :[facility] ReadingLocation: Weight: 150 lb : : Gender: Male BSA: 1.8 m2 : :: 1945 Age: 75 yrs BP: 129/77 mmHg: :Reason For Study: CARDIOMYOPATHY : :Ordering Physician: NATALIE, : :ERLINDA Performed By: Rayna Culp : :Referring: ERLINDA CAVANAUGH : + + Interpretation Summary 1) Normal left ventricular size and thickness with low normal systolic function (EF 50-55%). 2) Distal inferior wall is akinetic. The basal to mid inferior wall and the inferolateral wall are hypokinetic. 3) Upper normal right ventricular size with normal function. 4) There is moderate aortic stenosis (valve area 1.1cm2, mean gradient 23mmHg, severity ratio 0.3). 5) Compared to the Echo done 02/10/2021, LVEF has improved from 35-40% to 50-55% on this study. Procedure: A two-dimensional transthoracic echocardiogram with color flow and Doppler was performed. The study quality was technically adequate. Comparison is made with the echocardiogram of 02/10/2021. The patient was in sinus bradycardia with heart rates between 55-65 bpm during the exam. Left Ventricle: The left ventricle is normal in size and wall thickness. The ejection fraction is estimated to be 50-55%. Distal inferior wall is akinetic. The basal to mid inferior wall and the inferolateral wall are hypokinetic. Right Ventricle: The right ventricle is at the upper limits of normal in size. The right ventricular systolic function is normal. Atria: The left atrium is moderately dilated. Right atrial size is normal. A patent foramen ovale is suspected. Mitral Valve: The mitral valve leaflets are mildly calcified. There is moderate mitral annular calcification. There is mild mitral regurgitation. Aortic Valve: The aortic valve is moderately calcified. There is moderately reduced leaflet mobility. There is moderate aortic stenosis. The peak aortic velocity is 3.2 m/sec. The aortic valve mean gradient is 23 mmHg. The calculated aortic valve area is 1.1 cm2. There is mild aortic regurgitation. Tricuspid Valve: The tricuspid valve is normal in structure and function. There is mild tricuspid regurgitation. The right ventricular systolic pressure is estimated to be at least 28 mmHg based on an estimated right atrial pressure of 3 mm Hg. Pulmonic Valve: The pulmonic valve leaflets are thin and pliable; valve motion is normal. There is a trace or physiologic amount of pulmonic regurgitation. Great Vessels: The aortic root is normal size. The ascending aorta is mildly enlarged. The IVC is of normal diameter and collapses greater than 50% with a sniff. This suggests a low right atrial pressure of 3 mm Hg. Pericardium/ Pleura There is no pericardial effusion. There is no pleural effusion. MMode/2D Measurements & Calculations LVIDd: 5.1 cm LVOT diam: 2.3 cm LVIDs: 3.7 cm Ao root diam: 3.7 cm FS: 27.6 % asc Aorta Diam: 3.7 cm IVSd: 1.1 cm Ao Arch Diam (Prox Trans): 3.2 cm LVPWd: 0.87 cm LV campos. diameter/BSA (cm/m^2): 2.8 LV sys. diameter/BSA (cm/m^2): 2.1 LA A2 area: 21.8 cm2 RA long axis: 5.4 cm LA A4 area: 18.2 cm2 RA area: 17.5 cm2 LA length (vol): 4.7 cm RA vol: 48.2 ml LA vol: 72.1 ml RA : 26.9 ml/m2 LA vol index: 40.3 ml/m2 IVC diam: 1.2 cm RVD1 (basal): 4.0 cm TAPSE: 2.2 cm Doppler Measurements & Calculations Ao V2 max: 318.3 cm/sec LVOT Max Samuel: 85.7 cm/sec Ao V2 mean: 230.9 cm/sec LV V1 max P.8 mmHg Ao max P.5 mmHg LV V1 VTI: 24.3 cm Ao mean P.6 mmHg TIP(I,D): 1.2 cm2 Ao V2 VTI: 80.9 cm TIP(V,D): 1.1 cm2 sev ratio: 0.30 TIP indexed to BSA (cm^2/m^2): 0.70 MV E max samuel: 101.9 cm/sec TR max samuel: 250.5 cm/sec MV A max samuel: 116.9 cm/sec TR max P.1 mmHg MV E/A: 0.87 PA V2 max: 115.8 cm/sec Med Peak E' Samuel: 5.4 cm/sec PA V2 mean: 79.0 cm/sec E/E' med: 18.9 PA mean P.8 mmHg Lat Peak E' Samuel: 6.6 cm/sec E/E' lat: 15.4 E/e' average: 17.2 MV dec time: 0.29 sec SV(LVOT): 101.0 ml Reading Physician:04:00 PM
== END ==
PROVIDERS: Family Provider Internal Medicine; PCP Internal Medicine; Referring Provider Internal Medicine Cardiovascular Disease; Visit Provider Internal Medicine Cardiovascular Disease
DX: I08.3 Combined rheumatic disorders of mitral, aortic and tricuspid valves (principal); I77.89 Other specified disorders of arteries and arterioles; I42.9 Cardiomyopathy, unspecified
CPT/HCPCS: 93306

== ENCOUNTER → 2021-06-14 07:26 | Outpatient (CLI) | payer MEDICARE, SELFPAY ==
[2021-06-14 08:03] LABS: Add Manual Diff / Slide Review NO; Basophils Absolute Auto 0 /uL (0-100); Basophils Percent Auto 0.4 % (0-2); Eosinophils Absolute Auto 0 /uL (0-450); Eosinophils Percent Auto 0.1 % (2-4); Hematocrit 43.7 % (41-53); Hemoglobin 14.7 g/dL (13.5-17.5); Lymphocytes Absolute Auto 2400 /uL (1100-4500); Mean Corpuscular HGB Conc 33.7 % (30-36); Mean Corpuscular Volume 92.1 fL (80-100); Monocytes Absolute Auto 700 /uL (0-900); Monocytes Percent Auto 11.3 % (3-14); Neutrophils Absolute Auto 3200 /uL (1500-7000); Neutrophils Percent Auto 50.2 % (50-75); Platelet Count 166 X10^3/uL (150-400); Red Blood Cell Count 4.75 X10^6/uL (4.5-5.9); Red Cell Distribution Width 13.5 % (11.6-14.8); White Blood Cell Count 6.4 X10^3/uL (4.5-11.0)
[2021-06-14 08:15] LABS: BUN Creatinine Ratio 21.6 (6-22); Blood Urea Nitrogen 19 mg/dL (9-20); Calcium 9.3 mg/dL (8.4-10.2); Carbon Dioxide 30 mmol/L (22-32); Chloride 101 mmol/L (98-107); Cholesterol 139 mg/dL (140-199); Estimated Glomerular Filt Rate > 60.0 mL/min (>60); Glucose 157 mg/dL (80-110); HDL Cholesterol 62 mg/dL (40-60); HEMOLYSIS < 15 (0-50); LDL Cholesterol Calculated 50 mg/dL (<100); Potassium 4.5 mmol/L (3.4-5.1); Sodium 138 mmol/L (137-145); Triglycerides 134 mg/dL (35-150)
[2021-06-14 09:19] LABS: Free T4, Direct Thyroxine 0.93 ng/dL (0.78-2.19)
== END ==
PROVIDERS: Family Provider Internal Medicine; PCP Internal Medicine; Referring Provider Internal Medicine Cardiovascular Disease; Visit Provider Internal Medicine Cardiovascular Disease
DX: E78.5 Hyperlipidemia, unspecified (principal); R31.0 Gross hematuria; I48.19 Other persistent atrial fibrillation; Z51.81 Encounter for therapeutic drug level monitoring; Z79.899 Other long term (current) drug therapy
CPT/HCPCS: 36415; 80048; 80061; 84439; 84443; 85025

== ENCOUNTER → 2021-07-13 07:39 | Outpatient (CLI) | payer MEDICARE, SELFPAY ==
--- NOTE | 2021-07-13 | DI.NM.S_ITS ---
PROCEDURE: NM JUSTYN PERF SPECT R&S PHARM Rest and pharmacological stress myocardial perfusion SPECT with gated imaging and ejection fraction RADIOPHARMACEUTICAL: 9.9 mCi Tc-99m tetrafosmin IV at rest and 25.8 mCi Tc-99m tetrafosmin IV at peak effect of pharmacological stress. [id number] was performed. INDICATIONS: Cardiomyopathy, unspecified TECHNIQUE: Radiopharmaceutical was injected at peak stress test, and also at rest. SPECT images were obtained. SPECT myocardial perfusion images were displayed in short axis, horizontal long axis, and vertical long axis views. Gated images were reviewed using [employer] software. COMPARISON: None. CARDIAC STRESS: Narendra protocol 6 minutes, 15 seconds, 7.0 METS, PAWAN -5%, 78% peak predicted heart rate so switched to pharmacologic. A pharmacologic stress test was performed under the supervision of an attending staff, using an infusion of regadenoson. Hemodynamic data: There is normal blood pressure and heart rate response to pharmacologic stress. Symptoms: The patient denied anginal chest pain. EKG: No diagnostic changes of ischemia however 1 mm horizontal to downsloping ST segment depressions in the inferolateral leads after vasodilator infusion; rare PVCs. FINDINGS: Raw data: There is good myocardial uptake of radiotracer. No significant motion artifacts. Usro-xj-rhpbe ratio is 0.42 (normal is less than 0.38 for tetrafosmin tracer). Left ventricle function: Gated images demonstrate normal left ventricular wall thickening. No segmental wall motion abnormalities. No transient ischemic dilation; TID is 0.96 (normal less than 1.3). Left ventricle resting end diastolic volume is 118 mL. Left ventricle stress ejection fraction is 60%; normal range is above 45%. Myocardial perfusion: Large size, mild intensity partially reversible mid to distal lateral wall defect. Large size, moderate to severe intensity fixed inferior wall defect. Gated images show normal wall motion however. IMPRESSION: 1. Perfusion images concerning for infarct with luzma-infarct ischemia in the lateral wall. 2. Suspect that the fixed inferior wall defect is due to diaphragmatic attenuation as wall motion is preserved. 3. Poor chronotropic response, likely due to lack of withholding beta-ines. 4. Normal blood pressure response to exercise. Dictated by: Carey Guthrie D.O. on 07/13/2021 at 17:26 Approved by: Carey Guthrie M.D. on 07/13/2021 at 17:39
[2021-07-13 09:55] LABS: COVID19 -Nasal RAPID Negative (Negative)
== END ==
PROVIDERS: Family Provider Internal Medicine; PCP Internal Medicine; Referring Provider Internal Medicine Cardiovascular Disease; Visit Provider Internal Medicine Cardiovascular Disease
DX: I42.9 Cardiomyopathy, unspecified (principal); Z20.822 Contact with and (suspected) exposure to COVID-19
CPT/HCPCS: 78452; 87635; 93017; A9502; J2785

== ENCOUNTER → 2021-07-13 07:43 | Outpatient (CLI) | payer MEDICARE, SELFPAY ==
[2021-07-13 11:49] LABS: Prostate Specific Antigen < 0.064 ng/mL (0.10-4.00)
== END ==
PROVIDERS: Family Provider Internal Medicine; PCP Internal Medicine; Referring Provider Student in an Organized Health Care Education/Training Program; Visit Provider Student in an Organized Health Care Education/Training Program
DX: C61 Malignant neoplasm of prostate (principal)
CPT/HCPCS: 36415; 84153

== ENCOUNTER → 2021-10-12 10:14 | Outpatient (CLI) | payer MEDICARE, SELFPAY ==
[2021-10-12 14:48] LABS: COVID-19 CEPHEID PCR (VTM/NP) Negative (Negative)
== END ==
PROVIDERS: Family Provider Internal Medicine; PCP Internal Medicine; Referring Provider Physician Assistant; Visit Provider Physician Assistant
DX: Z20.822 Contact with and (suspected) exposure to COVID-19 (principal)
CPT/HCPCS: C9803; U0003

== ENCOUNTER → 2022-01-26 08:53 | Outpatient (CLI) | payer MEDICARE, SELFPAY ==
[2022-01-27 08:14] LABS: PSA, Total < 0.1 ng/mL (0.0-4.0)
== END ==
PROVIDERS: Urology; Family Provider Internal Medicine; PCP Internal Medicine; Referring Provider Urology; Visit Provider Urology
DX: C61 Malignant neoplasm of prostate (principal)
CPT/HCPCS: 36415; 84153; 84154

== ENCOUNTER → 2022-02-15 13:56 | Outpatient (CLI) | payer MEDICARE, SELFPAY ==
[2022-02-15 15:33] LABS: Add Manual Diff / Slide Review NO; Basophils Absolute Auto 0 /uL (0-100); Basophils Percent Auto 0.2 % (0-2); Eosinophils Absolute Auto 100 /uL (0-450); Hematocrit 44.5 % (41-53); Hemoglobin 15.3 g/dL (13.5-17.5); Lymphocytes Absolute Auto 2400 /uL (1100-4500); Lymphocytes Percent Auto 28.9 % (25-40); Mean Corpuscular HGB Conc 34.5 % (30-36); Mean Corpuscular Hemoglobin 32.1 PG (26-34); Mean Corpuscular Volume 93.1 fL (80-100); Monocytes Absolute Auto 700 /uL (0-900); Monocytes Percent Auto 8.3 % (3-14); Neutrophils Absolute Auto 5100 /uL (1500-7000); Neutrophils Percent Auto 61.6 % (50-75); Platelet Count 170 X10^3/uL (150-400); Red Blood Cell Count 4.77 X10^6/uL (4.5-5.9); Red Cell Distribution Width 13.5 % (11.6-14.8); White Blood Cell Count 8.2 X10^3/uL (4.5-11.0)
[2022-02-15 15:39] LABS: Alanine Aminotransferase 20 IU/L (<50); Albumin 4.6 g/dL (3.5-5.0); Albumin Globulin Ratio 1.6 (1.0-2.8); Alkaline Phosphatase 66 U/L (38-126); Aspartate Aminotransferase 23 IU/L (17-59); BUN Creatinine Ratio 20.7 (6-22); Bilirubin Total 0.9 mg/dL (0.2-1.3); Blood Urea Nitrogen 19 mg/dL (9-20); Calcium 9.1 mg/dL (8.4-10.2); Carbon Dioxide 30 mmol/L (22-32); Chloride 102 mmol/L (98-107); Cholesterol 122 mg/dL (140-199); Estimated Glomerular Filt Rate > 60 mL/min (>60); Globulin 2.8 g/dL (1.7-4.1); Glucose 169 mg/dL (80-110); HDL Cholesterol 70 mg/dL (40-60); HEMOLYSIS < 15 (0-50); LDL Cholesterol Calculated 31 mg/dL (<100); Potassium 4.1 mmol/L (3.4-5.1); Sodium 139 mmol/L (137-145); Total Protein 7.4 g/dL (6.3-8.2); Triglycerides 107 mg/dL (35-150)
[2022-02-15 15:44] LABS: Hemoglobin A1C% w Est Avg Glu 7.6 % (4.0-6.0)
== END ==
PROVIDERS: Family Provider Internal Medicine; PCP Internal Medicine; Referring Provider Internal Medicine; Visit Provider Internal Medicine
DX: E11.42 Type 2 diabetes mellitus with diabetic polyneuropathy (principal); E78.2 Mixed hyperlipidemia; I10 Essential (primary) hypertension; I25.10 Atherosclerotic heart disease of native coronary artery without angina pectoris; I48.0 Paroxysmal atrial fibrillation
CPT/HCPCS: 36415; 80053; 80061; 83036; 84443; 85025

== ENCOUNTER → 2022-03-27 14:42 | Outpatient (CLI) | payer MEDICARE, SELFPAY ==
--- NOTE | 2022-03-27 14:47 | DI.ECHO.S_ITS ---
[place] [facility]---------+ [facility] +---------+ : : [address] : : [address] : : : : [id number] : : : : Phone: [phone]+ Echocardiogram Report + + :Name: FE ODOM Study Date: 03/27/2022 Height: 66 in : :[facility] ReadingLocation: Weight: 160 lb : : Gender: Male BSA: 1.8 m2 : :: 1945 Age: 76 yrs BP: 146/82 mmHg: :Reason For Study: AORTIC STENOSIS : :Ordering Physician: NATALIE, : :ERLINDA Performed By: Rayna Culp : :Referring: ERLINDA CAVANAUGH : + + Interpretation Summary 1) Normal left ventricular size and thickness with low normal systolic function (EF 50-55%). 2) Focal area of distal inferior wall extending to the focal mid-distal inferoseptum are akinetic. The basal inferior wall is also akinetic. The mid inferior wall and the inferolateral wall are hypokinetic. 3) Normal right ventricular size with normal function. 4) There is moderate aortic stenosis (valve area 1.0cm2, mean gradient 24mmHg, severity ratio 0.26). 5) Compared to the Echo done 06/07/2021, no significant change when compared visually. Procedure: A two-dimensional transthoracic echocardiogram with color flow and Doppler was performed. The study quality was technically adequate. Comparison is made with the echocardiogram of 06/07/2021. The patient was in sinus bradycardia with heart rates between 57-61 bpm during the exam. Left Ventricle: The left ventricle is normal in size. Left ventricular wall thickness is normal. Proximal septal thickening is noted. The ejection fraction is estimated to be 50-55%. Focal area of distal inferior wall extending to the focal mid-distal inferoseptum are akinetic. The basal inferior wall is also akinetic. The mid inferior wall and the inferolateral wall are hypokinetic. Right Ventricle: The right ventricle is normal in size and function. Atria: The left atrium is mildly dilated. Right atrial size is normal. A patent foramen ovale is suspected. Mitral Valve: The mitral valve leaflets are mildly calcified. There is moderate mitral annular calcification. There is mild mitral regurgitation. Aortic Valve: The aortic valve is moderately calcified. There is moderately reduced leaflet mobility. The peak aortic velocity is 3.09 m/sec. The aortic valve mean gradient is 24 mmHg. There is mild aortic regurgitation. Tricuspid Valve: The tricuspid valve is normal in structure but is abnormal in function. There is mild tricuspid regurgitation. The right ventricular systolic pressure is estimated to be at least 26 mmHg based on an estimated right atrial pressure of 3 mm Hg. Pulmonic Valve: The pulmonic valve leaflets are thin and pliable; valve motion is normal. There is trace pulmonic regurgitation. Great Vessels: The aortic root is normal size. The ascending aorta is at the upper limits of normal in size. The IVC is of normal diameter and collapses greater than 50% with a sniff. This suggests a low right atrial pressure of 3 mm Hg. Pericardium/ Pleura There is no pericardial effusion. There is no pleural effusion. MMode/2D Measurements & Calculations LVIDd: 4.8 cm LVOT diam: 2.3 cm LVIDs: 3.0 cm Ao root diam: 3.4 cm FS: 37.1 % asc Aorta Diam: 4.0 cm IVSd: 1.2 cm Ao Arch Diam (Prox Trans): 2.8 cm LVPWd: 0.89 cm LV campos. diameter/BSA (cm/m^2): 2.7 LV sys. diameter/BSA (cm/m^2): 1.7 LA A2 area: 21.4 cm2 RA long axis: 5.3 cm LA A4 area: 16.7 cm2 RA area: 15.1 cm2 LA length (vol): 4.7 cm RA vol: 36.2 ml LA vol: 64.6 ml RA : 19.9 ml/m2 LA vol index: 35.5 ml/m2 IVC diam: 1.3 cm RVD1 (basal): 3.3 cm RVD2 (mid): 3.4 cm TAPSE: 2.0 cm Doppler Measurements & Calculations Ao V2 max: 309.9 cm/sec LVOT Max Samuel: 76.1 cm/sec Ao V2 mean: 226.7 cm/sec LV V1 max P.3 mmHg Ao max P.8 mmHg LV V1 VTI: 19.6 cm Ao mean P.7 mmHg TIP(I,D): 1.0 cm2 Ao V2 VTI: 76.5 cm TIP(V,D): 1.00 cm2 sev ratio: 0.26 TIP indexed to BSA (cm^2/m^2): 0.57 AI P1/2t: 636.2 msec AI dec slope: 161.7 cm/sec2 MV E max samuel: 80.5 cm/sec TR max samuel: 238.8 cm/sec MV A max samuel: 121.7 cm/sec TR max P.8 mmHg MV E/A: 0.66 PA V2 max: 98.2 cm/sec Med Peak E' Samuel: 3.8 cm/sec PA V2 mean: 64.1 cm/sec E/E' med: 21.4 PA mean P.9 mmHg Lat Peak E' Samuel: 6.2 cm/sec PA pr(Accel): 43.0 mmHg E/E' lat: 12.9 E/e' average: 17.2 MV dec time: 0.36 sec SV(LVOT): 79.7 ml Reading Physician:04:32 PM
== END ==
PROVIDERS: Family Provider Internal Medicine; PCP Internal Medicine; Referring Provider Internal Medicine Cardiovascular Disease; Visit Provider Internal Medicine Cardiovascular Disease
DX: I08.3 Combined rheumatic disorders of mitral, aortic and tricuspid valves (principal)
CPT/HCPCS: 93306

== ENCOUNTER → 2022-03-30 09:33 | Outpatient (CLI) | payer MEDICARE, SELFPAY ==
--- NOTE | 2022-03-30 09:35 | DI.RAD.S_ITS ---
PROCEDURE: XR KNEE LT 3V INDICATIONS: left foot injury TECHNIQUE: 3 views of the knee were acquired. COMPARISON: None. FINDINGS: Bones: There is moderate femorotibial compartment narrowing and small intercondylar osteophytes. No suspicious bony lesions. No acute fracture or dislocation. Soft tissues: No joint effusion. No suspicious soft tissue calcifications. IMPRESSION: Mild left knee osteoarthritis. Dictated by: Nasrin Bloom M.D. on 03/30/2022 at 13:11 Approved by: Nasrin Bloom M.D. on 03/30/2022 at 13:16
--- NOTE | 2022-03-30 09:35 | DI.RAD.S_ITS ---
PROCEDURE: XR FOOT LT MIN 3V INDICATIONS: left foot injury TECHNIQUE: 3 views of the foot were acquired. COMPARISON: [facility], , FOOT 3V LEFT, 04/22/2015, 9:46. FINDINGS: Bones: No fractures or dislocations. [id number] osteoarthritic changes are noted throughout left foot more prominent at talonavicular joint and 1st MTP joint. No suspicious bony lesions. Soft tissues: No tibiotalar joint effusion. Achilles tendon appears normal. IMPRESSION: No gross acute left foot fracture or dislocation. Left foot joint osteoarthritis as above. Dictated by: Vinnie Hancock M.D. on 03/30/2022 at 12:27 Approved by: Vinnie Hancock M.D. on 03/30/2022 at 12:28
== END ==
PROVIDERS: Family Provider Internal Medicine; PCP Internal Medicine; Referring Provider Nurse Practitioner Family; Visit Provider Nurse Practitioner Family
DX: S89.92XA Unspecified injury of left lower leg, initial encounter (principal); M17.12 Unilateral primary osteoarthritis, left knee; M19.072 Primary osteoarthritis, left ankle and foot
CPT/HCPCS: 73562; 73630

== ENCOUNTER → 2022-06-01 08:15 | Outpatient (CLI) | payer MEDICARE, SELFPAY ==
[2022-06-01 09:07] LABS: Hemoglobin A1C% w Est Avg Glu 7.2 % (4.0-6.0)
== END ==
PROVIDERS: Family Provider Internal Medicine; PCP Internal Medicine; Referring Provider Internal Medicine; Visit Provider Internal Medicine
DX: E11.42 Type 2 diabetes mellitus with diabetic polyneuropathy (principal)
CPT/HCPCS: 36415; 83036

== ENCOUNTER → 2022-08-01 09:24 | Outpatient (CLI) | payer MEDICARE, SELFPAY ==
[2022-08-01 11:26] LABS: Prostate Specific Antigen < 0.064 ng/mL (0.10-4.00)
== END ==
PROVIDERS: Family Provider Internal Medicine; PCP Internal Medicine; Referring Provider Urology; Visit Provider Urology
DX: C61 Malignant neoplasm of prostate (principal)
CPT/HCPCS: 36415; 84153

== ENCOUNTER → 2022-09-05 08:21 | Outpatient (CLI) | payer MEDICARE, SELFPAY ==
[2022-09-05 10:55] LABS: Hemoglobin A1C% w Est Avg Glu 7.7 % (4.0-6.0)
[2022-09-05 11:15] LABS: Creatinine Urine Random 254.7 mg/dL
[2022-09-05 11:28] LABS: BUN Creatinine Ratio 19.6 (6-22); Blood Urea Nitrogen 18 mg/dL (9-20); Calcium 9.2 mg/dL (8.4-10.2); Carbon Dioxide 30 mmol/L (22-32); Chloride 100 mmol/L (98-107); Cholesterol 125 mg/dL (140-199); Estimated Glomerular Filt Rate > 60 mL/min (>60); Glucose 178 mg/dL (80-110); HDL Cholesterol 68 mg/dL (40-60); HEMOLYSIS < 15 (0-50); LDL Cholesterol Calculated 44 mg/dL (<100); Potassium 4.6 mmol/L (3.4-5.1); Sodium 139 mmol/L (137-145); Triglycerides 67 mg/dL (35-150)
[2022-09-05 11:31] LABS: Microalbumi Creatinin Ratio Ur 180.6 ug/mg CR (<30)
== END ==
PROVIDERS: Family Provider Internal Medicine; PCP Internal Medicine; Referring Provider Internal Medicine; Visit Provider Internal Medicine
DX: E11.42 Type 2 diabetes mellitus with diabetic polyneuropathy (principal); E78.2 Mixed hyperlipidemia; I10 Essential (primary) hypertension
CPT/HCPCS: 36415; 80048; 80061; 82043; 82570; 83036

== ENCOUNTER 2022-12-10 10:04 | Emergency (ER) | payer MEDICARE, SELFPAY ==
[2022-12-10 10:10] VITALS: BP 181/77; PULSE 77; RESP 14; TEMP 36.7; O2SAT 99
--- NOTE | 2022-12-10 10:22 | ED.EXTPRO ---
HPI - Extremity Problem General Chief complaint: Extremity Problem,Nontraumatic Stated complaint: rt calf strain, worried about dvt Time Seen by Provider: 12/10/22 10:11 Source: patient Mode of arrival: Ambulatory Limitations: no limitations History of Present Illness HPI Narrative: Patient is a 77-year-old male who is on anticoagulation secondary to atrial fibrillation who a couple weeks ago injured his right knee while trying to step up on a stool. He has tried conservative measures at home and also a knee brace. His knee is actually feeling better but over the past couple days he is noticed swelling and pain to his right calf muscle in the front portion of his right leg. He is never had a blood clot in the past. He has been taking all of his medications as directed. He is no chest pain no shortness of breath. Has continue to do conservative measures at home to include elevation of his leg but continues to have swelling and he was concerned about a blood clot. Related Data Home Medications Medication Instructions Recorded Confirmed omeprazole 20 mg capsule,delayed 10 mg PO QDAY ##0 03/27/17 10/26/22 release multivitamin 1 tab PO DAILY 09/16/18 10/26/22 Tylenol 500 mg BID 03/12/19 10/26/22 fluticasone propionate 50 1 spray intranasal DAILY 03/12/19 10/26/22 mcg/actuation nasal spray,suspension Tumeric 1,000 mg DAILY 09/29/19 10/26/22 spironolactone 25 mg tablet 25 mg PO DAILY 03/24/21 10/26/22 loperamide 2 mg tablet 2 mg PO DAILY PRN Diarrhea 02/15/22 10/26/22 losartan 25 mg tablet 25 mg PO DAILY 02/15/22 10/26/22 metoprolol succinate 25 mg 25 mg PO DAILY 02/15/22 10/26/22 tablet,extended release 24 hr rosuvastatin 20 mg tablet 20 mg PO DAILY 02/15/22 10/26/22 clopidogrel 75 mg tablet 37.5 mg PO DAILY 05/17/22 10/26/22 apixaban 2.5 mg tablet (Eliquis) 2.5 mg PO BID 08/31/22 10/26/22 Previous Rx's Medication Instructions Recorded budesonide 3 mg 9 mg PO DAILY #270 ea 08/31/22 capsule,delayed,extended release gabapentin 600 mg tablet 900 mg PO TID #405 tabs 08/31/22 metformin 750 mg tablet,extended 750 mg PO BID #180 tabs 11/20/22 release 24 hr Allergies Allergy/AdvReac Type Severity Reaction Status Date / Time amiodarone AdvReac Intermediate Verified 08/31/22 07:40 Review of Systems Cardiovascular Cardiovascular: Reports system reviewed and no additional complaints, except as documented Respiratory Respiratory: Reports system reviewed and no additional complaints, except as documented Musculoskeletal Musculoskeletal: Reports system reviewed and no additional complaints, except as documented Integumentary/Breasts Skin/Breast: Reports system reviewed and no additional complaints, except as documented Neurologic Neurologic: Reports system reviewed and no additional complaints, except as documented Hematologic/Lymphatic On Anticoagulants: Yes Patient History Medical History Advanced directives, counseling/discussion Allergies Aortic stenosis (~2019) Cataracts, bilateral (~2021) Chicken pox Coronary artery disease (~2004) Diabetes (~2004) Disease of spine (~2009) Diverticulitis Essential hypertension GERD (gastroesophageal reflux disease) Hearing loss Hypertension Left knee sprain Malignant neoplasm of prostate Medicare annual wellness visit, initial Microscopic colitis Mixed hyperlipidemia Murmur Myocardial infarction Neuropathy Paroxysmal atrial fibrillation Seasonal allergies Type 2 diabetes mellitus with polyneuropathy Surgical History Anesthesia History of angioplasty (~10/2011) History of arthroscopic knee surgery (~1999) History of colonoscopy History of prostatectomy (~01/08/11) Family History Father History of heart disease Hypertension Hyperlipidemia Mental health problem Stroke Mother History of heart disease Hypertension Hyperlipidemia Stroke Sister Multiple myeloma Social History household members: spouse Smoking Status: Never smoker alcohol intake: current Smoking Status: Never smoker alcohol intake frequency: 0-2 drinks per day Alcohol type: wine Substance Use Type: does not use Exam Initial Vital Signs Initial Vital Signs: Vital Signs Temperature 98.0 F 12/10/22 10:10 Pulse Rate 77 12/10/22 10:10 Respiratory Rate 14 12/10/22 10:10 Blood Pressure 181/77 H 12/10/22 10:10 Pulse Oximetry 99 12/10/22 10:10 Oxygen Delivery Method 12/10/22 10:10 HENMT Head: normal to inspection and normocephalic Resp Effort & Inspection: normal respiratory effort Cardio Pulses: radial pulses present bilaterally Skin General: no rashes or lesions noted Neuro General: patient alert, patient awake and moves all extremities Extrem Other: Does have swelling to his right calf muscle and tenderness along the anterior aspect of the medial gastrocnemius and also posteriorly. Has no tenderness along the medial and lateral hamstring tenderness. His quadriceps and patellar tendon unremarkable. He is no swelling to his right thigh. Course Orders Ordered: ED Orders 12/10/22 10:23 US periph venous low extrem rt Stat Vital Signs Vital signs: Vital Signs - 8 hr 12/10/22 10:10 Temperature 98.0 F Pulse Rate 77 Respiratory Rate 14 Blood Pressure 181/77 H Pulse Oximetry 99 Oxygen Delivery Method Room Air MDM - Extremity (Nontraumatic) Imaging Data US - DVT: Radiologist's Impression: [address] [address] Ultrasound Report Signed Patient: Jose Javed MR#: [id number] : 1945 Acct:[id number] Age/Sex: 77 / M Date of Service: 12/10/22 Loc: ED Accession Number: [id number] ?? Procedure: perip venous low extrem rt Ordering Provider: Alexander Lundy D.O. PROCEDURE:? US PERIPH VENOUS LOW EXTREM RT ? INDICATIONS:? PAIN ? TECHNIQUE:? Real-time imaging, as well as color and pulse Doppler interrogation, were performed of the lower extremity deep veins from the inguinal ligament to the popliteal fossa.? ? COMPARISON:? None. ? FINDINGS:? The common femoral, femoral and popliteal veins are normally compressible, and free of intraluminal thrombus.? Color and pulse Doppler demonstrate normal phasic intraluminal flow.? There is normal augmentation response to distal compression maneuver. ? ? IMPRESSION:? ? No evidence of deep venous thrombosis, right lower extremity ? Popliteal cyst measures 8.1 x 3.6 x 1.2 cm.? Additional fluid in the proximal calf measures 7.8 x 0.4 cm ? ? ? Approved by: Dimitri Girard M.D. on 12/10/2022 at 10:10? [facility] Narrative Medical decision making narrative: Patient does have swelling to the right calf, lower extremity. There was no indication of cellulitis. Low suspicion for fracture given the fact that he has been ambulatory. His compartments are soft low suspicion for compartment syndrome. Ultrasound shows no indication for DVT. He is on anticoagulation. There is a nonspecific fluid collection associated to the superior portion of the gastrocnemius which I suspect is related to the knee injury that he had a couple weeks ago. I did discuss this with him. We discussed conservative measures to continue to do at home. Discussed return precautions. He expressed understanding and agreement. Discharge Plan Departure Patient Disposition: Home Clinical Impression: Strain of right calf muscle Instructions: DI for Calf Muscle Strain, How To Perform RICE (Rest, Ice, Compress, Elevate) Activity Restrictions/Additional Instructions: Recommend that you continue to take all of your medications as directed. Continue with the conservative measures that you have been doing at home to include elevation and ice. You have no restrictions on your travel. Return to the emergency department for any new or worsening symptoms. Prescriptions: No Action omeprazole 20 MG capsule,delayed release(DR/EC) 10 mg PO QDAY Qty: 0 metformin 750 mg tablet extended release 24 hr 750 mg PO BID Qty: 180 1RF rosuvastatin 20 mg tablet 20 mg PO DAILY metoprolol succinate 25 mg tablet extended release 24 hr 25 mg PO DAILY losartan 25 mg tablet 25 mg PO DAILY clopidogrel 75 mg tablet 37.5 mg PO DAILY Eliquis 2.5 mg tablet 2.5 mg PO BID Label Comments: TAKE 1 TABLET BY MOUTH TWICE DAILY WHILE ON CLOPIDOGREL gabapentin 600 mg tablet 900 mg PO TID Qty: 405 3RF budesonide 3 mg capsule,delayed,extend.release 9 mg PO DAILY Qty: 270 3RF multivitamin Tablet 1 tab PO DAILY Tumeric 500 mg 1,000 mg DAILY Tylenol 500 mg BID fluticasone propionate 50 mcg/actuation [place],Suspension 1 spray INTRANASAL DAILY loperamide 2 mg tablet 2 mg PO DAILY PRN (Reason: Diarrhea) Rx Instructions: 8/daily spironolactone 25 mg tablet 25 mg PO DAILY Referrals: Shantanu Mejía MD [Primary Care Provider] - Stand Alone Forms: Patient Portal/API
--- NOTE | 2022-12-10 10:23 | DI.US.S_ITS ---
PROCEDURE: US PERIPH VENOUS LOW EXTREM RT INDICATIONS: PAIN TECHNIQUE: Real-time imaging, as well as color and pulse Doppler interrogation, were performed of the lower extremity deep veins from the inguinal ligament to the popliteal fossa. COMPARISON: None. FINDINGS: The common femoral, femoral and popliteal veins are normally compressible, and free of intraluminal thrombus. Color and pulse Doppler demonstrate normal phasic intraluminal flow. There is normal augmentation response to distal compression maneuver. IMPRESSION: No evidence of deep venous thrombosis, right lower extremity Popliteal cyst measures 8.1 x 3.6 x 1.2 cm. Additional fluid in the proximal calf measures 7.8 x 0.4 cm Approved by: Dimitri Girard M.D. on 12/10/2022 at 10:10
--- NOTE | 2022-12-10 10:23 | PC.NURSE ---
assessed by MD with nurse at bedside
[2022-12-10 11:46] VITALS: BP 123/66; PULSE 63; RESP 14; O2SAT 95
== END 2022-12-10 11:48 | disposition home or self-care (01) ==
PROVIDERS: Emergency Provider Emergency Medicine; Family Provider Internal Medicine; PCP Internal Medicine
DX: S86.911A Strain of unspecified muscle(s) and tendon(s) at lower leg level, right leg, initial encounter (principal)
CPT/HCPCS: 93971; 99281; 99283

== ENCOUNTER 2022-12-20 10:06 | Emergency (ER) | payer MEDICARE, SELFPAY ==
[2022-12-20 11:07] VITALS: BP 180/85; PULSE 72; RESP 18; TEMP 36.4; O2SAT 96; BMI 25.4
--- NOTE | 2022-12-20 12:38 | DI.US.S_ITS ---
PROCEDURE: US [facility] VENOUS LOW EXTREM RT INDICATIONS: KNEE PAIN, EDEMA TECHNIQUE: Real-time imaging, as well as color and pulse Doppler interrogation, were performed of the lower extremity deep veins from the inguinal ligament to the popliteal fossa. COMPARISON: [facility], , [facility] VENOUS LOW EXTREM RT, 12/10/2022, 10:31. FINDINGS: The common femoral, femoral and popliteal veins are normally compressible, and free of intraluminal thrombus. Color and pulse Doppler demonstrate normal phasic intraluminal flow. There is normal augmentation response to distal compression maneuver. There is a right calf hematoma measuring 3.4 x 2.7 by approximately 30 cm. IMPRESSION: 1. No DVT in the right lower extremity. 2. Right calf hematoma. Possibly from, or a tendinous tear. Dictated by: Marlo Lizarraga M.D. on 12/20/2022 at 13:23 Approved by: Marlo Lizarraga M.D. on 12/20/2022 at 13:36
[2022-12-20 13:31] VITALS: PULSE 68; O2SAT 97
[2022-12-20 13:32] VITALS: BP 157/72; PULSE 66; O2SAT 98
[2022-12-20 13:36] VITALS: BP 152/74; PULSE 63; O2SAT 98
[2022-12-20 14:00] VITALS: BP 148/76; PULSE 67; O2SAT 97
--- NOTE | 2022-12-20 14:01 | ED.EXTPRO ---
HPI - Extremity Problem <Bhavna Pond [facility] - Last Filed: 12/20/22 17:48> General Chief complaint: Extremity Problem,Nontraumatic Stated complaint: strain calf muscle Time Seen by Provider: 12/20/22 12:35 Source: patient Mode of arrival: Family Vehicle History of Present Illness HPI Narrative: This is a 77-year-old gentleman who has history of atrial fibrillation, cardiac stents x2 and is anticoagulated on apixaban who presents to the emergency department complaining of worsening swelling to his right lower extremity after what started as a knee injury 4 weeks ago. He states that that started to improve after a couple of days and then he was gently using his elliptical when he developed pain to the medial right gastrocnemius with tenderness to palpation. He states that it has been getting worse, and his whole distal right lower extremity is now swollen with mild ecchymosis. He has history of diabetes is on metformin but does have peripheral neuropathy and poor sensation to his foot at baseline. He denies any weakness but states that he can not walk well and is flying to [place] in 2 days. He states that he can not dorsiflex or flex his foot while walking and needs to stay in a neutral position or the pain is exquisite. He states that he has been taking Tylenol 2 tabs 3 times a day and it has been helping for his pain. Related Data Home Medications Medication Instructions Recorded Confirmed omeprazole 20 mg capsule,delayed 10 mg PO QDAY ##0 03/27/17 12/21/22 release multivitamin 1 tab PO DAILY 09/16/18 12/21/22 Tylenol 500 mg BID 03/12/19 12/21/22 fluticasone propionate 50 1 spray intranasal DAILY 03/12/19 12/21/22 mcg/actuation nasal spray,suspension Tumeric 1,000 mg DAILY 09/29/19 12/21/22 spironolactone 25 mg tablet 25 mg PO DAILY 03/24/21 12/21/22 loperamide 2 mg tablet 2 mg PO DAILY PRN Diarrhea 02/15/22 12/21/22 losartan 25 mg tablet 25 mg PO DAILY 02/15/22 12/21/22 metoprolol succinate 25 mg 25 mg PO DAILY 02/15/22 12/21/22 tablet,extended release 24 hr rosuvastatin 20 mg tablet 20 mg PO DAILY 02/15/22 12/21/22 clopidogrel 75 mg tablet 37.5 mg PO DAILY 05/17/22 12/21/22 apixaban 2.5 mg tablet (Eliquis) 2.5 mg PO BID 08/31/22 12/21/22 Previous Rx's Medication Instructions Recorded budesonide 3 mg 9 mg PO DAILY #270 ea 08/31/22 capsule,delayed,extended release gabapentin 600 mg tablet 900 mg PO TID #405 tabs 08/31/22 metformin 750 mg tablet,extended 750 mg PO BID #180 tabs 11/20/22 release 24 hr diclofenac sodium 1 % topical gel 4 g topical QID #100 grams 12/20/22 hydrocodone 5 mg-acetaminophen 325 1 tab PO BID PRN pain #14 tabs 12/21/22 mg tablet Allergies Allergy/AdvReac Type Severity Reaction Status Date / Time amiodarone AdvReac Intermediate Verified 12/21/22 11:36 Review of Systems <DEVYN Huerta - Last Filed: 12/20/22 17:48> Review of Systems ROS Unobtainable: All systems reviewed & are unremarkable except as noted in HPI and below Patient History <DEVYN Huerta - Last Filed: 12/20/22 17:48> Medical History Advanced directives, counseling/discussion Allergies Aortic stenosis (~2019) Cataracts, bilateral (~2021) Chicken pox Coronary artery disease (~2004) Diabetes (~2004) Disease of spine (~2009) Diverticulitis Essential hypertension GERD (gastroesophageal reflux disease) Hearing loss Hypertension Left knee sprain Malignant neoplasm of prostate Medicare annual wellness visit, initial Microscopic colitis Mixed hyperlipidemia Murmur Myocardial infarction Neuropathy Paroxysmal atrial fibrillation Seasonal allergies Type 2 diabetes mellitus with polyneuropathy Surgical History Anesthesia History of angioplasty (~10/2011) History of arthroscopic knee surgery (~1999) History of colonoscopy History of prostatectomy (~01/08/11) Family History Father History of heart disease Hypertension Hyperlipidemia Mental health problem Stroke Mother History of heart disease Hypertension Hyperlipidemia Stroke Sister Multiple myeloma Social History household members: spouse Smoking Status: Never smoker alcohol intake: current Smoking Status: Never smoker alcohol intake frequency: 0-2 drinks per day Alcohol type: wine Substance Use Type: does not use Exam <DEVYN Huerta - Last Filed: 12/20/22 17:48> Narrative Exam Narrative: Reviewed vitals signs and nursing notes. General: cooperative, comfortable, in no acute distress, well groomed HEENT: symmetrical facial expressions, moist mucous membranes Cardiovascular: regular rate and rhythm, no peripheral edema, warm extremities Respiratory: normal effort, able to speak in complete sentences, without wheezing, stridor, or abnormal breath sounds. No retractions or tachypnea. GI: abdomen soft, nontender to palpation, nondistended, without masses, rebound tenderness or exquisite tenderness with exam. MSK: moves all extremities, diabetic neuropathy at baseline, PT and DP pulses on the right foot are dopplerable but faint, patient has diffuse edema from the right knee down with ecchymosis on medial and lateral aspect of his foot, no palpable fluctuance or hematoma over the gastrocnemius but patient has tenderness over many of his lower extremity tendons including MCL, LCL, Achilles, negative Jean's, negative for laxity with varus and valgus testing. Without erythema, dorsiflexion plantar extension equal bilaterally, no motor deficit, very tender over the medial aspect of his gastrocnemius and over his LCL and proximal/lateral right lower leg Skin: brisk capillary refill, without pallor or erythema Neuro: normal speech and cognition, A&O x3, ambulatory, clear speech Psych: mental status is grossly normal, congruent mood, normal affect, pleasant and cooperative Initial Vital Signs Initial Vital Signs: Vital Signs Temperature 97.6 F 12/20/22 11:07 Pulse Rate 72 12/20/22 11:07 Respiratory Rate 18 12/20/22 11:07 Blood Pressure 180/85 H 12/20/22 11:07 Pulse Oximetry 96 12/20/22 11:07 Oxygen Delivery Method 12/20/22 11:07 <Ricardo Barcenas MD - Last Filed: 12/26/22 02:07> Initial Vital Signs Initial Vital Signs: Vital Signs Temperature 97.6 F 12/20/22 11:07 Pulse Rate 72 12/20/22 11:07 Respiratory Rate 18 12/20/22 11:07 Blood Pressure 180/85 H 12/20/22 11:07 Pulse Oximetry 96 12/20/22 11:07 Oxygen Delivery Method 12/20/22 11:07 Course <DEVYN Huerta - Last Filed: 12/20/22 17:48> Orders Ordered: Discontinued Medications Hydrocodone Bitart/Acetaminophen (Hydrocodone/Acet 5/325 Tablet) 1 tab PO NOW ONE Stop: 12/20/22 14:07 Last Admin: 12/20/22 14:27 Dose: 1 tab Documented By: NR Vital Signs Vital signs: Vital Signs - 8 hr 12/20/22 11:07 12/20/22 13:31 12/20/22 13:32 Temperature 97.6 F Pulse Rate 72 68 Respiratory Rate 18 Blood Pressure 180/85 H 157/72 H Pulse Oximetry 96 97 Oxygen Delivery Method Room Air 12/20/22 13:32 12/20/22 13:36 12/20/22 13:36 Temperature Pulse Rate 66 63 Respiratory Rate Blood Pressure 152/74 H Pulse Oximetry 98 98 Oxygen Delivery Method 12/20/22 14:00 12/20/22 14:00 12/20/22 16:00 Temperature Pulse Rate 67 Respiratory Rate Blood Pressure 148/76 H 153/86 H Pulse Oximetry 97 Oxygen Delivery Method 12/20/22 16:00 Temperature Pulse Rate 64 Respiratory Rate Blood Pressure Pulse Oximetry 98 Oxygen Delivery Method <Ricardo Barcenas MD - Last Filed: 12/26/22 02:07> Orders Ordered: Discontinued Medications Hydrocodone Bitart/Acetaminophen (Hydrocodone/Acet 5/325 Tablet) 1 tab PO NOW ONE Stop: 12/20/22 14:07 Last Admin: 12/20/22 14:27 Dose: 1 tab Documented By: NR Vital Signs Vital signs: Vital Signs - 8 hr 12/20/22 11:07 12/20/22 13:31 12/20/22 13:32 Temperature 97.6 F Pulse Rate 72 68 Respiratory Rate 18 Blood Pressure 180/85 H 157/72 H Pulse Oximetry 96 97 Oxygen Delivery Method Room Air 12/20/22 13:32 12/20/22 13:36 12/20/22 13:36 Temperature Pulse Rate 66 63 Respiratory Rate Blood Pressure 152/74 H Pulse Oximetry 98 98 Oxygen Delivery Method 12/20/22 14:00 12/20/22 14:00 12/20/22 16:00 Temperature Pulse Rate 67 Respiratory Rate Blood Pressure 148/76 H 153/86 H Pulse Oximetry 97 Oxygen Delivery Method 12/20/22 16:00 Temperature Pulse Rate 64 Respiratory Rate Blood Pressure Pulse Oximetry 98 Oxygen Delivery Method MDM - Extremity (Nontraumatic) <Bhavna Pond, [facility] - Last Filed: 12/20/22 17:48> Imaging Data US Doppler Rt LE: Radiologist's Impression: PROCEDURE:? US PERIPH VENOUS LOW EXTREM RT ? INDICATIONS:? KNEE PAIN, EDEMA ? TECHNIQUE:? Real-time imaging, as well as color and pulse Doppler interrogation, were performed of the lower extremity deep veins from the inguinal ligament to the popliteal fossa.? ? COMPARISON:? [facility], US PERIPH VENOUS LOW EXTREM RT, 12/10/2022, 10:31. ? FINDINGS:? The common femoral, femoral and popliteal veins are normally compressible, and free of intraluminal thrombus.? Color and pulse Doppler demonstrate normal phasic intraluminal flow.? There is normal augmentation response to distal compression maneuver. ?There is a right calf hematoma measuring 3.4 x 2.7 by approximately 30 cm. ? IMPRESSION:? 1. No DVT in the right lower extremity. 2. Right calf hematoma.? Possibly from, or a tendinous tear.? ? ? Dictated by: Marlo Lizarraga M.D. on 12/20/2022 at 13:23 ? ? Approved by: Marlo Lizarraga M.D. on 12/20/2022 at 13:36 ? US doppler from 12/10/22: Radiologist's Impression: No evidence of deep venous thrombosis, right lower extremity ? Popliteal cyst measures 8.1 x 3.6 x 1.2 cm.? Additional fluid in the proximal calf measures 7.8 x 0.4 cm ? ? ? Approved by: Dimitri Girard M.D. on 12/10/2022 at 10:10? Extremity x-ray #1: Radiologist's Impression: PROCEDURE:? XR KNEE RT 3V ? INDICATIONS:? rt knee injury 4 weeks ago ? TECHNIQUE:? 3 views of the knee were acquired.? ? COMPARISON:? [facility], , XR KNEE LT 3V, 03/30/2022, 9:30. ? FINDINGS:? ? Bones:? No fractures or dislocations.? No suspicious bony lesions.? Patellar osteophytes. ? ? Soft tissues:? Tiny joint effusion.? No suspicious soft tissue calcifications.? ? ? IMPRESSION:? Tiny knee joint effusion.? No acute bony abnormality. ? ? Dictated by: Lucio Levi M.D. on 12/20/2022 at 15:24 ? ? Approved by: Lucio Levi M.D. on 12/20/2022 at 15:25 ? MDM Narrative Medical decision making narrative: Chief Complaint:Right lower extremity edema and right gastrocnemius pain This is a 77-year-old gentleman who has history of atrial fibrillation, cardiac stents x2 and is anticoagulated on apixaban who presents to the emergency department complaining of worsening swelling to his right lower extremity after what started as a knee injury 4 weeks ago. He states that that started to improve after a couple of days and then he was gently using his elliptical when he developed pain to the medial right gastrocnemius with tenderness to palpation. He states that it has been getting worse, and his whole distal right lower extremity. Differential diagnoses include but are not limited to: DVT, dependent edema secondary to gastrocnemius tear, tendon injury, meniscal injury, ligamental injury, tendinitis, knee effusion I have reviewed the patient's vital signs and nursing notes as well as prior records if available. Pertinent lab findings reviewed: Pertinent Imaging reviewed: Ultrasound Doppler of right lower extremity is negative for DVT, shows a right sided hematoma, right knee x-ray shows Clinical decision rules or scores evaluated: Course of care: 1400 Doppler right lower extremity pulses with a faint DP via Doppler and strong PT 1400 consultation to Kacie Barahona who is on-call for Orthopedics [address] Barahona again who is on-call for Orthopedics regarding treatment plan. She recommends compression, follow-up when he returns from his trip as there are no available appointments today or tomorrow. Discussion: Imaging services were lost today and patient waited approximately 1.5 hours for report from his knee x-ray however it only showed a tiny knee joint effusion and patient has been nursing this injury from approximately 4 weeks ago. He has full mobility, no motor deficit, PT and DP pulses are dopplerable although faint, [address] Kacie Barahona regarding follow-up and there are no available appointments between now and when patient leaves on Sunday at 07:00. He is encouraged to change his appointment as needed, his lower leg was wrapped in a compressive Sang bandage and patient states that it feels better, he is ambulatory and able to bear weight on this, no evidence of infection. Patient had a negative Jean's test, negative or increased laxity on varus and valgus testing, he had tenderness over his LCL more than his MCL, tenderness over his Achilles, and his lower foot ecchymosis is likely secondary to his gastrocnemius injury. Patient is pain tolerant and he was prescribed hydrocodone, encouraged she is diclofenac gel since he is on anticoagulant and can not take oral NSAIDs. Patient states understanding, he is grateful for his care, will follow-up accordingly and was educated to use a stool softener as needed for constipation. Patient's symptoms improved over duration of stay with above-stated therapies. Social considerations that may affect disposition: none Questions are addressed and there is agreement with the plan and for follow-up. Patient is appropriate for outpatient management. MIPS: This encounter doesn't have any diagnosis' associated with MIPS criteria. Discharge Plan Departure Patient Disposition: Home Clinical Impression: Hematoma of right lower leg, Effusion of knee joint right Injury of knee, right Qualifiers: Encounter type: initial encounter Qualified Code(s): S89.91XA - Unspecified injury of right lower leg, initial encounter Instructions: Calf Muscle Strain, DI for Knee Effusion Activity Restrictions/Additional Instructions: *You have been diagnosed with right lower extremity edema, a hematoma which is bleeding without evidence of acute bleeding or vascular problem. There are no appointments available at the orthopedic clinic today or tomorrow. Unfortunately they had many appointments earlier this week. When I spoke with Dr. Barahona from orthopedics she recommended compression with Sang bandages or a Jorge hose, you could put a small elevation into your shoe to help you walk around with less pain but use as much elevation, compression and ice as possible to help this improve. Keep it elevated as much as he possibly can. There is a very low likelihood that this will need to be drained surgically. Please take a stool softener like MiraLax daily with your pain pills. It is still okay to use Tylenol 2 tabs every 6 hours with hydrocodone as needed. The x-ray shows a mild knee effusion, this could be a meniscal injury or ligamental tear. Thank you for your patients, it took a very long time for that report to come over, no bony injury as far as they can see. *What to do: *Please continue to take your regular medications as directed. [x ] New medication prescriptions sent to your pharmacy: [ [facility]] [ ] New medication written as a paper prescription [ ] No new medications given *Please follow up with your primary care provider in 2-3 days, call for an appointment. Let them know you were seen in the Emergency Department and that we asked that you be seen for follow-up. We will electronically transmit a record of today's note if your PCP is in our system *If you do not have a primary care provider please contact [phone] to establish care with one of the [facility] primary care providers. *Return to Emergency Department if you should have any new, worsening, or concerning symptoms, such as [fever greater than 101F, chills, worsening pain, persistent vomiting or other bothersome symptoms]. Prescriptions: New diclofenac sodium 1 % gel 4 g topical QID Qty: 100 2RF Rx Instructions: Apply to lower extremity 4 times daily for pain No Action omeprazole 20 MG capsule,delayed release(DR/EC) 10 mg PO QDAY Qty: 0 metformin 750 mg tablet extended release 24 hr 750 mg PO BID Qty: 180 1RF hydrocodone-acetaminophen 5-325 mg tablet 1 tab PO BID PRN (Reason: pain) Qty: 14 0RF rosuvastatin 20 mg tablet 20 mg PO DAILY metoprolol succinate 25 mg tablet extended release 24 hr 25 mg PO DAILY losartan 25 mg tablet 25 mg PO DAILY clopidogrel 75 mg tablet 37.5 mg PO DAILY Eliquis 2.5 mg tablet 2.5 mg PO BID Label Comments: TAKE 1 TABLET BY MOUTH TWICE DAILY WHILE ON CLOPIDOGREL gabapentin 600 mg tablet 900 mg PO TID Qty: 405 3RF budesonide 3 mg capsule,delayed,extend.release 9 mg PO DAILY Qty: 270 3RF multivitamin Tablet 1 tab PO DAILY Tumeric 500 mg 1,000 mg DAILY Tylenol 500 mg BID fluticasone propionate 50 mcg/actuation [place],Suspension 1 spray INTRANASAL DAILY loperamide 2 mg tablet 2 mg PO DAILY PRN (Reason: Diarrhea) Rx Instructions: 8/daily spironolactone 25 mg tablet 25 mg PO DAILY Referrals: [facility] [Provider Group] Shantanu Mejía MD [Primary Care Provider] - Stand Alone Forms: Patient Portal/API <Ricardo Barcenas MD - Last Filed: 12/26/22 02:07> Cosign ED Attending Cosignature Attestation: I was immediately available in the department for consultation. ?This documentation has been reviewed and I agree with assessment and plan. Supervised by Ricardo Barcenas MD
--- NOTE | 2022-12-20 14:07 | PC.NURSE ---
pt sustained knee injury and then calf muscle injury in the last couple weeks. swelling from knee down to foot, dark purple bruising around ankle and yellowing from knee down. doppler used to assess pulses in foot as palpation was unsuccessful
[2022-12-20] MEDS: HYDROCODONE/ACET 5/325 TABLET 1 TAB PO (14:27)
--- NOTE | 2022-12-20 14:27 | DI.RAD.S_ITS ---
PROCEDURE: XR KNEE RT 3V INDICATIONS: rt knee injury 4 weeks ago TECHNIQUE: 3 views of the knee were acquired. COMPARISON: [facility], CR, XR KNEE LT 3V, 03/30/2022, 9:30. FINDINGS: Bones: No fractures or dislocations. No suspicious bony lesions. Patellar osteophytes. Soft tissues: Tiny joint effusion. No suspicious soft tissue calcifications. IMPRESSION: Tiny knee joint effusion. No acute bony abnormality. Dictated by: Lucio Levi M.D. on 12/20/2022 at 15:24 Approved by: Lucio Levi M.D. on 12/20/2022 at 15:25
[2022-12-20 16:00] VITALS: BP 153/86; PULSE 64; O2SAT 98
== END 2022-12-20 16:08 | disposition home or self-care (01) ==
PROVIDERS: Emergency Provider Nurse Practitioner Critical Care Medicine; Family Provider Internal Medicine; PCP Internal Medicine
DX: S80.01XA Contusion of right knee, initial encounter (principal); M25.461 Effusion, right knee; X58.XXXA Exposure to other specified factors, initial encounter; Z79.01 Long term (current) use of anticoagulants; Z95.5 Presence of coronary angioplasty implant and graft
CPT/HCPCS: 73562; 93971; 99283

== ENCOUNTER → 2023-02-04 11:12 | Outpatient (CLI) | payer MEDICARE, SELFPAY ==
[2023-02-04 12:26] LABS: Influenza A - CEPHEID Flu A NEGATIVE (NEGATIVE); Influenza B - CEPHEID Flu B NEGATIVE (NEGATIVE); Respiratory Syncytial Virus Negative (Negative)
[2023-02-04 12:27] LABS: COVID-19 CEPHEID 4-PLEX PCR Negative (Negative)
== END ==
PROVIDERS: Family Provider Internal Medicine; PCP Internal Medicine; Visit Provider Physician Assistant
DX: R05.9 Cough, unspecified (principal); J02.9 Acute pharyngitis, unspecified
CPT/HCPCS: 0241U; 87070

== ENCOUNTER → 2023-03-16 08:30 | Outpatient (CLI) | payer MEDICARE, SELFPAY ==
[2023-03-16 10:48] LABS: Prostate Specific Antigen < 0.064 ng/mL (0.10-4.00)
== END ==
PROVIDERS: Family Provider Internal Medicine; PCP Internal Medicine; Referring Provider Urology; Visit Provider Urology
DX: C61 Malignant neoplasm of prostate (principal)
CPT/HCPCS: 36415; 84153

== ENCOUNTER → 2023-03-31 10:21 | Outpatient (CLI) | payer MEDICARE, SELFPAY | PROVIDERS: Family Provider Internal Medicine; PCP Internal Medicine; Referring Provider Internal Medicine; Visit Provider Internal Medicine | DX: E11.42 Type 2 diabetes mellitus with diabetic polyneuropathy (principal) | CPT/HCPCS: 36415; 83036 ==

== ENCOUNTER → 2023-05-16 07:09 | Outpatient (CLI) | payer MEDICARE, SELFPAY ==
[2023-05-16 09:03] LABS: Add Manual Diff / Slide Review NO; Basophils Absolute Auto 0 /uL (0-100); Basophils Percent Auto 0.4 % (0-2); Eosinophils Absolute Auto 100 /uL (0-450); Eosinophils Percent Auto 1.7 % (2-4); Hemoglobin 14.8 g/dL (13.5-17.5); Lymphocytes Absolute Auto 1400 /uL (1100-4500); Lymphocytes Percent Auto 24.7 % (25-40); Mean Corpuscular HGB Conc 34.4 % (30-36); Mean Corpuscular Hemoglobin 32.3 PG (26-34); Mean Corpuscular Volume 93.7 fL (80-100); Monocytes Absolute Auto 500 /uL (0-900); Monocytes Percent Auto 9.7 % (3-14); Neutrophils Absolute Auto 3500 /uL (1500-7000); Neutrophils Percent Auto 63.5 % (50-75); Platelet Count 169 X10^3/uL (150-400); Red Blood Cell Count 4.59 X10^6/uL (4.5-5.9); Red Cell Distribution Width 13.5 % (11.6-14.8); White Blood Cell Count 5.5 X10^3/uL (4.5-11.0)
[2023-05-16 09:25] LABS: BUN Creatinine Ratio 24.5 (6-22); Blood Urea Nitrogen 23 mg/dL (9-20); Calcium 8.9 mg/dL (8.4-10.2); Carbon Dioxide 30 mmol/L (22-32); Chloride 103 mmol/L (98-107); Cholesterol 118 mg/dL (140-199); Estimated Glomerular Filt Rate > 60 mL/min (>60); Glucose 165 mg/dL (80-110); HDL Cholesterol 54 mg/dL (40-60); HEMOLYSIS < 15 (0-50); LDL Cholesterol Calculated 40 mg/dL (<100); Potassium 4.3 mmol/L (3.4-5.1); Sodium 138 mmol/L (137-145); Triglycerides 121 mg/dL (35-150)
[2023-05-16 10:05] LABS: TSH w/ Reflex to FT4 2.37 uIU/mL (0.47-4.68)
== END ==
PROVIDERS: Family Provider Internal Medicine; PCP Internal Medicine; Referring Provider Internal Medicine Cardiovascular Disease; Visit Provider Internal Medicine Cardiovascular Disease
DX: I25.10 Atherosclerotic heart disease of native coronary artery without angina pectoris (principal); I48.19 Other persistent atrial fibrillation
CPT/HCPCS: 36415; 80048; 80061; 84443; 85025

== ENCOUNTER → 2023-05-17 12:20 | Outpatient (CLI) | payer MEDICARE, SELFPAY ==
--- NOTE | 2023-05-17 | DI.ECHO.S_ITS ---
[facility] +---------+ : : [address] : : : : [id number] : : : : Phone: [phone]+ Echocardiogram Report + + :Name: FE ODOM Study Date: 05/17/2023 Height: 66 in : :[facility] ReadingLocation: Weight: 152 lb : : Gender: Male BSA: 1.8 m2 : :: 1945 Age: 77 yrs BP: 148/74 mmHg: :Reason For Study: Aortic Valve Stenosis : :Ordering Physician: NATALIE, : :ERLINDA Performed By: Bobbi Regan : :Referring: ERLINDA CAVANAUGH : + + Interpretation Summary 1) Normal left ventricular size and systolic function (EF 55-60%). 2) The basal to mid inferolateral wall is hypokinetic. 3) Normal right ventricular size with normal function. 4) There is moderate to severe aortic stenosis (valve area 0.9cm2, mean gradient 29mmHg, severity ratio 0.29). 5) There is mild to moderate aortic regurgitation. 6) Compared to the Echo done 03/27/2022, aortic stenosis has progressed slightly from moderate to moderate-severe on this study. Procedure: A two-dimensional transthoracic echocardiogram with color flow and Doppler was performed. The study quality was technically adequate. Comparison is made with the echocardiogram of 03/27/2022. The patient was in normal sinus rhythm during the exam. Left Ventricle: The left ventricle is normal in size. There is mild concentric left ventricular hypertrophy. The ejection fraction is estimated to be 55-60%. The basal to mid inferolateral wall is hypokinetic. Diastolic parameters suggest a relaxation abnormality of the left ventricle, consistent with probable normal filling pressures. Right Ventricle: The right ventricle is normal size. The right ventricular systolic function is normal. Atria: The left atrial size is normal. Right atrial size is normal. There is no Doppler evidence for an interatrial shunt. Mitral Valve: The mitral valve leaflets appear moderately thickened, but open well. There is no mitral valve stenosis. There is trace mitral regurgitation. Aortic Valve: The aortic valve is heavily calcified. There is moderate aortic stenosis. The peak aortic velocity is 3.54 m/sec. The aortic valve mean gradient is 30 mmHg. There is mild to moderate aortic regurgitation. Tricuspid Valve: The tricuspid valve is normal. There is no tricuspid stenosis. There is trace tricuspid regurgitation. Pulmonary artery pressures cannot be estimated because of the lack of a measurable TR jet velocity. Pulmonic Valve: The pulmonic valve leaflets are thin and pliable; valve motion is normal. There is no pulmonic valvular stenosis. There is no pulmonic valvular regurgitation. Great Vessels: The aortic root is normal size. The ascending aorta is at the upper limits of normal in size. The pulmonary artery is normal size. The IVC is of normal diameter and collapses greater than 50% with a sniff. This suggests a low right atrial pressure of 3 mm Hg. Pericardium/ Pleura There is no pericardial effusion. There is no pleural effusion. MMode/2D Measurements & Calculations LVIDd: 3.9 cm LVOT diam: 2.0 cm LVIDs: 2.3 cm Ao root diam: 3.1 cm FS: 41.0 % asc Aorta Diam: 3.8 cm IVSd: 1.2 cm LVPWd: 1.2 cm LV campos. diameter/BSA (cm/m^2): 2.2 LV sys. diameter/BSA (cm/m^2): 1.3 LA A2 area: 19.1 cm2 RA long axis: 4.4 cm LA A4 area: 17.0 cm2 RA area: 10.0 cm2 LA length (vol): 5.8 cm RA vol: 19.6 ml LA vol: 47.5 ml RA : 11.0 ml/m2 LA vol index: 26.7 ml/m2 RVD1 (basal): 3.4 cm LVLs ap4: 5.9 cm LVLd ap2: 7.5 cm TAPSE_phl: 2.7 cm LVLs ap2: 6.3 cm Doppler Measurements & Calculations Ao V2 max: 347.0 cm/sec LVOT Max Samuel: 96.8 cm/sec Ao V2 mean: 251.0 cm/sec LV V1 max P.7 mmHg Ao max P.0 mmHg LV V1 VTI: 24.9 cm Ao mean P.5 mmHg TIP(I,D): 0.91 cm2 Ao V2 VTI: 86.0 cm TIP(V,D): 0.88 cm2 sev ratio: 0.29 TIP indexed to BSA (cm^2/m^2): 0.51 AI P1/2t: 509.2 msec AI dec slope: 195.0 cm/sec2 MV E max samuel: 107.0 cm/sec PA V2 max: 108.0 cm/sec MV A max samuel: 132.0 cm/sec PA V2 mean: 73.5 cm/sec MV E/A: 0.81 PA mean P.0 mmHg Med Peak E' Samuel: 4.7 cm/sec PA pr(Accel): 45.7 mmHg E/E' med: 22.6 Lat Peak E' Samuel: 6.5 cm/sec E/E' lat: 16.5 E/e' average: 19.5 MV dec time: 0.33 sec MVA(VTI): 1.8 cm2 MV V2 mean: 63.9 cm/sec SV(LVOT): 78.1 ml MV mean P.0 mmHg MV V2 VTI: 44.2 cm AV P1/2t-pr_phl: 508.0 msec MV P1/2t-pr_phl: 96.0 msec AV VR_phl: 0.28 TIP(VTI)/BSA_phl: 0.51 Reading Physician:05:08 PM
== END ==
PROVIDERS: Family Provider Internal Medicine; PCP Internal Medicine; Referring Provider Internal Medicine Cardiovascular Disease; Visit Provider Internal Medicine Cardiovascular Disease
DX: I35.2 Nonrheumatic aortic (valve) stenosis with insufficiency (principal)
CPT/HCPCS: 93306

== ENCOUNTER → 2023-07-05 08:08 | Outpatient (CLI) | payer MEDICARE, SELFPAY ==
[2023-07-05 09:26] LABS: Hemoglobin A1C% w Est Avg Glu 7.6 % (4.0-6.0)
[2023-07-05 09:45] LABS: Alanine Aminotransferase 25 IU/L (<50); Albumin 4.2 g/dL (3.5-5.0); Albumin Globulin Ratio 1.7 (1.0-2.8); Alkaline Phosphatase 89 U/L (38-126); Aspartate Aminotransferase 26 IU/L (17-59); BUN Creatinine Ratio 26.9 (6-22); Bilirubin Total 0.9 mg/dL (0.2-1.3); Blood Urea Nitrogen 25 mg/dL (9-20); Calcium 9.3 mg/dL (8.4-10.2); Carbon Dioxide 28 mmol/L (22-32); Chloride 99 mmol/L (98-107); Estimated Glomerular Filt Rate > 60 mL/min (>60); Globulin 2.5 g/dL (1.7-4.1); Glucose 212 mg/dL (80-110); HEMOLYSIS < 15 (0-50); Potassium 4.1 mmol/L (3.4-5.1); Sodium 136 mmol/L (137-145); Total Protein 6.7 g/dL (6.3-8.2)
== END ==
PROVIDERS: Family Provider Internal Medicine; PCP Internal Medicine; Referring Provider Internal Medicine; Visit Provider Internal Medicine
DX: E11.42 Type 2 diabetes mellitus with diabetic polyneuropathy (principal)
CPT/HCPCS: 36415; 80053; 83036

== ENCOUNTER → 2023-11-06 08:07 | Outpatient (CLI) | payer MEDICARE, SELFPAY ==
[2023-11-06 08:41] LABS: Hemoglobin A1C% w Est Avg Glu 7.6 % (4.0-6.0)
[2023-11-06 08:57] LABS: BUN Creatinine Ratio 23.2 (6-22); Blood Urea Nitrogen 23 mg/dL (9-20); Calcium 9.7 mg/dL (8.4-10.2); Carbon Dioxide 30 mmol/L (22-32); Chloride 100 mmol/L (98-107); Estimated Glomerular Filt Rate > 60 mL/min (>60); Glucose 162 mg/dL (80-110); HEMOLYSIS < 15 (0-50); Potassium 4.2 mmol/L (3.4-5.1); Sodium 136 mmol/L (137-145)
== END ==
PROVIDERS: Family Provider Internal Medicine; PCP Internal Medicine; Referring Provider Internal Medicine; Visit Provider Internal Medicine
DX: E11.42 Type 2 diabetes mellitus with diabetic polyneuropathy (principal)
CPT/HCPCS: 36415; 80048; 83036

== ENCOUNTER → 2023-11-13 09:25 | Outpatient (CLI) | payer MEDICARE, SELFPAY ==
[2023-11-13 10:47] LABS: Creatinine Urine Random 62.6 mg/dL
[2023-11-13 18:37] LABS: Microalbumi Creatinin Ratio Ur 33.5 ug/mg CR (<30); Microalbumin Urine Random 2.1 mg/dL (0-1.6)
== END ==
PROVIDERS: Family Provider Internal Medicine; PCP Internal Medicine; Referring Provider Internal Medicine; Visit Provider Internal Medicine
DX: E11.42 Type 2 diabetes mellitus with diabetic polyneuropathy (principal)
CPT/HCPCS: 82043; 82570

== ENCOUNTER 2024-03-31 10:41 | Emergency (ER) | payer MEDICARE, SELFPAY ==
[2024-03-31] VITALS (18 sets, daily range): BP systolic 125–159; BP diastolic 59–73; PULSE 44–75; RESP 15–24; TEMP 36.3; O2SAT 92–97; BMI 23.6
--- NOTE | 2024-03-31 11:03 | DI.RAD.S_ITS ---
PROCEDURE: XR CHEST 1V INDICATIONS: chest pain TECHNIQUE: One view of the chest was acquired. COMPARISON: [facility], CR, XR CHEST 1V, 02/09/2021, 19:31. FINDINGS: Surgical changes and devices: None. Lungs and pleura: Lungs are clear. No pleural effusions or pneumothorax. Mediastinum: Mediastinal contours appear normal. Heart size is normal. Aortic arch is calcified indicating atherosclerosis. Bones and chest wall: No suspicious bony lesions. Overlying soft tissues appear unremarkable. IMPRESSION: No acute cardiopulmonary abnormality is seen. Approved by: Jayla Chapa M.D.,Ph.D. on 03/31/2024 at 10:23
[2024-03-31 11:18] LABS: Add Manual Diff / Slide Review NO; Basophils Absolute Auto 100 /uL (0-100); Basophils Percent Auto 0.7 % (0-2); Eosinophils Absolute Auto 100 /uL (0-450); Eosinophils Percent Auto 0.9 % (2-4); Hematocrit 47.1 % (41-53); Hemoglobin 16.2 g/dL (13.5-17.5); Lymphocytes Absolute Auto 1500 /uL (1100-4500); Lymphocytes Percent Auto 18.1 % (25-40); Mean Corpuscular HGB Conc 34.4 % (30-36); Mean Corpuscular Hemoglobin 32.8 PG (26-34); Mean Corpuscular Volume 95.3 fL (80-100); Monocytes Absolute Auto 700 /uL (0-900); Monocytes Percent Auto 7.7 % (3-14); Neutrophils Absolute Auto 6200 /uL (1500-7000); Neutrophils Percent Auto 72.6 % (50-75); Platelet Count 182 X10^3/uL (150-400); Red Blood Cell Count 4.94 X10^6/uL (4.5-5.9); Red Cell Distribution Width 13.3 % (11.6-14.8); White Blood Cell Count 8.5 X10^3/uL (4.5-11.0)
[2024-03-31 11:27] LABS: INR 1.2 (0.9-1.3); Prothrombin Time 13.2 SECONDS (9.4-12.5)
[2024-03-31 11:30] LABS: PTT Partial Thromboplastin Tim 40 SECONDS (25.1-36.5)
[2024-03-31 11:31] LABS: Alanine Aminotransferase 25 IU/L (<50); Albumin 4.4 g/dL (3.5-5.0); Albumin Globulin Ratio 1.5 (1.0-2.8); Alkaline Phosphatase 76 U/L (38-126); Aspartate Aminotransferase 31 IU/L (17-59); BUN Creatinine Ratio 28.7 (6-22); Bilirubin Total 0.7 mg/dL (0.2-1.3); Blood Urea Nitrogen 25 mg/dL (9-20); Calcium 9.3 mg/dL (8.4-10.2); Carbon Dioxide 26 mmol/L (22-32); Chloride 106 mmol/L (98-107); Creatine Kinase 67 U/L (55-170); Estimated Glomerular Filt Rate > 60 mL/min (>60); Globulin 2.9 g/dL (1.7-4.1); Glucose 141 mg/dL (80-110); HEMOLYSIS 20 (0-50); Lipase 79 U/L (23-300); Magnesium 1.9 mg/dL (1.6-2.3); Potassium 4.6 mmol/L (3.4-5.1); Sodium 136 mmol/L (137-145); Total Protein 7.3 g/dL (6.3-8.2)
[2024-03-31 11:42] LABS: Troponin I < 0.012 ng/mL (0.01-0.034)
--- NOTE | 2024-03-31 11:54 | ED.GENADULT ---
HPI - General Adult General Chief complaint: Weakness Stated complaint: Heart problem, history of heart issues Time Seen by Provider: 03/31/24 11:53 History of Present Illness HPI narrative: 78-year-old male complains of lightheaded dizziness sensation since yesterday morning, without chest pain or shortness of breath, some generalized weakness, no recent fevers chills cough, no recent black or red stools or diarrhea, no abdominal discomfort. History of aortic stenosis noted, followed by local belt builder helper Dr. Cavanaugh, believes his last echocardiogram was about 1 year ago, might eventually have surgical intervention but not felt to be critical at that time. Also has history of coronary artery disease, status post stenting x2 during COV, he thinks it might have been 2019, at [facility], currently not having any chest pain, nor is he having any pain to the neck back arm jaw. When he feels dizzy it is not particularly change with position or head movements, no spinning or vertigo like component. He has no weakness to his face arm or leg, no tingling to his face arm or leg. He has not aware of having previous TIA or stroke problems. Related Data Home Medications Medication Instructions Recorded Confirmed omeprazole 20 mg capsule,delayed 10 mg PO QDAY ##0 03/27/17 11/13/23 release multivitamin 1 tab PO DAILY 09/16/18 11/13/23 spironolactone 25 mg tablet 25 mg PO DAILY 03/24/21 11/13/23 losartan 25 mg tablet 25 mg PO DAILY 02/15/22 11/13/23 metoprolol succinate 25 mg 25 mg PO DAILY 02/15/22 11/13/23 tablet,extended release 24 hr rosuvastatin 20 mg tablet 20 mg PO DAILY 02/15/22 11/13/23 alprostadil (bulk) 100% powder 1 ea miscellaneous 04/05/23 11/13/23 apixaban 5 mg tablet (Eliquis) 5 mg PO BID 04/05/23 11/13/23 acetaminophen 500 mg tablet 500 mg PO BID 07/17/23 11/13/23 (Tylenol Extra Strength) turmeric root extract 500 mg 1,000 mg PO DAILY 07/17/23 11/13/23 capsule empagliflozin 10 mg tablet 10 mg PO DAILY 11/13/23 11/13/23 (Jardiance) Previous Rx's Medication Instructions Recorded diclofenac sodium 1 % topical gel 4 g topical QID #100 grams 12/20/22 gabapentin 600 mg tablet 900 mg (1.5 x 600 mg) PO TID #405 05/31/23 tabs triamcinolone acetonide 0.1 % 1 applic topical BID #30 grams 07/17/23 topical cream hfuqkqoq-gvklvmgic-pduyysppr 3.5 3 drp EAR-RIGHT TID #10 mL 10/15/23 mg/mL-10,000 unit/mL-1 % ear solution budesonide 3 mg 9 mg (3 x 3 mg) PO DAILY #270 ea 10/25/23 capsule,delayed,extended release dapagliflozin propanediol 10 mg 10 mg PO DAILY #90 tabs 11/01/23 tablet (Farxiga) metformin 750 mg tablet,extended 750 mg PO BID #180 tabs 11/13/23 release 24 hr Allergies Allergy/AdvReac Type Severity Reaction Status Date / Time amiodarone AdvReac Intermediate Verified 11/13/23 08:11 Review of Systems Review of Systems Narrative: as per HPI Patient History Medical History History of prostate cancer Post-surgical erectile dysfunction Polycythemia Left knee sprain Malignant neoplasm of prostate Microscopic colitis Mixed hyperlipidemia Essential hypertension Type 2 diabetes mellitus with polyneuropathy Paroxysmal atrial fibrillation Allergies Disease of spine (~2009) Chicken pox Hearing loss Cataracts, bilateral (~2021) Myocardial infarction Coronary artery disease (~2004) Aortic stenosis (~2019) Murmur Diverticulitis Neuropathy Seasonal allergies GERD (gastroesophageal reflux disease) Hypertension Diabetes (~2004) Surgical History Anesthesia History of angioplasty (~10/2011) History of prostatectomy (~01/08/11) History of arthroscopic knee surgery (~1999) History of colonoscopy Family History Father History of heart disease Hypertension Hyperlipidemia Mental health problem Stroke Mother History of heart disease Hypertension Hyperlipidemia Stroke Sister Multiple myeloma Social History household members: spouse Smoking Status: Never smoker alcohol intake: current Smoking Status: Never smoker alcohol intake frequency: 0-2 drinks per day Alcohol type: wine Substance Use Type: does not use Exam Narrative Exam Narrative: GENERAL: Well-developed patient, in mild distress. HEAD: Atraumatic. Normocephalic. EYES: Pupils equal round and reactive. Extraocular motions intact. No scleral icterus. No injection or drainage. ENT: Nose without bleeding, purulent drainage. Throat without erythema, tonsillar hypertrophy or exudate. Airway patent. NECK: Trachea midline. Non tender CARDIOVASCULAR: Regular rate and rhythm, 2/6 systolic murmur, gallops, or rubs. RESPIRATORY: Clear to auscultation. Breath sounds equal bilaterally. No wheezes, rales, or rhonchi. GASTROINTESTINAL: Abdomen soft, non-tender, nondistended. EXTREMITIES: No edema or joint tenderness. BACK: Nontender without deformity or crepitance. No flank tenderness. NEURO: AOx3. SKIN: No rash or erythema of visible areas Initial Vital Signs Initial Vital Signs: Vital Signs Temperature 97.4 F L 03/31/24 10:57 Pulse Rate 44 L 03/31/24 10:57 Respiratory Rate 18 03/31/24 10:57 Blood Pressure 159/73 H 03/31/24 10:57 Pulse Oximetry 97 03/31/24 10:57 Oxygen Delivery Method Room Air 03/31/24 10:57 Course Orders Ordered: ED Orders 03/31/24 11:03 XR chest 1V Stat EKG-12 Lead Stat 03/31/24 11:11 Complete Blood Count AUTO DIFF Stat Comprehensive Metabolic Panel Stat Lipase Stat Magnesium Stat PTT Partial Thromboplastin Dimitri Stat Prothrombin Time INR Stat Troponin & CK Cardiac Panel Stat 03/31/24 12:18 CT head/brain wo con Stat 03/31/24 12:19 EC echo doppler complete Stat 03/31/24 14:55 Troponin I Stat Discontinued Medications Aspirin (Aspirin 81 Mg Chew Tab) 324 mg PO NOW ONE Stop: 03/31/24 11:04 Last Admin: 03/31/24 11:32 Dose: Not Given Documented By: Vital Signs Vital signs: Vital Signs - 8 hr 03/31/24 11:48 03/31/24 12:00 03/31/24 12:00 Pulse Rate 67 66 Respiratory Rate 19 Blood Pressure 145/66 H Pulse Oximetry 94 92 Oxygen Delivery Method 03/31/24 12:40 03/31/24 12:41 03/31/24 12:41 Pulse Rate 65 63 Respiratory Rate 16 Blood Pressure 148/67 H Pulse Oximetry 97 97 Oxygen Delivery Method 03/31/24 12:42 03/31/24 12:42 03/31/24 13:00 Pulse Rate 62 Respiratory Rate 15 Blood Pressure 141/59 H 137/64 Pulse Oximetry 97 Oxygen Delivery Method 03/31/24 13:00 03/31/24 13:30 03/31/24 13:30 Pulse Rate 61 65 Respiratory Rate 17 24 Blood Pressure 131/68 Pulse Oximetry 94 94 Oxygen Delivery Method 03/31/24 14:00 03/31/24 14:01 03/31/24 14:01 Pulse Rate 65 75 Respiratory Rate 18 17 Blood Pressure 125/62 Pulse Oximetry 93 95 Oxygen Delivery Method 03/31/24 14:30 03/31/24 14:31 03/31/24 14:31 Pulse Rate 67 69 Respiratory Rate Blood Pressure 146/71 H Pulse Oximetry 96 96 Oxygen Delivery Method 03/31/24 15:00 03/31/24 15:00 03/31/24 15:30 Pulse Rate 72 71 Respiratory Rate 21 20 Blood Pressure 136/70 Pulse Oximetry 95 94 Oxygen Delivery Method Room Air 03/31/24 15:30 03/31/24 16:09 03/31/24 16:11 Pulse Rate 70 70 Respiratory Rate 15 Blood Pressure 125/62 131/60 Pulse Oximetry 96 96 Oxygen Delivery Method Room Air 03/31/24 16:11 03/31/24 16:30 03/31/24 16:31 Pulse Rate 70 70 Respiratory Rate 20 19 Blood Pressure 131/60 Pulse Oximetry 96 95 Oxygen Delivery Method 03/31/24 16:31 Pulse Rate Respiratory Rate Blood Pressure 135/61 Pulse Oximetry Oxygen Delivery Method Medical Decision Making Lab Data 03/31/24 11:11 03/31/24 11:11 Labs: Lab Results 03/31/24 03/31/24 Range/Units 11:11 14:55 WBC 8.5 (4.5-11.0) X10^3/uL RBC 4.94 (4.5-5.9) X10^6/uL Hgb 16.2 (13.5-17.5) g/dL Hct 47.1 (41-53) % MCV 95.3 (80-100) fL MCH 32.8 (26-34) PG MCHC 34.4 (30-36) % RDW 13.3 (11.6-14.8) % Plt Count 182 (150-400) X10^3/uL Neut % (Auto) 72.6 (50-75) % Lymph % (Auto) 18.1 L (25-40) % Schuyler % (Auto) 7.7 (3-14) % Eos % (Auto) 0.9 L (2-4) % Baso % (Auto) 0.7 (0-2) % Neut # (Auto) 6200 (7479-4566) /uL Lymph # (Auto) 1500 (1255-2617) /uL Schuyler # (Auto) 700 (0-900) /uL Eos # (Auto) 100 (0-450) /uL Baso # (Auto) 100 (0-100) /uL PT 13.2 H (9.4-12.5) SECONDS INR 1.2 (0.9-1.3) APTT 40 H (25.1-36.5) SECONDS Sodium 136 L (137-145) mmol/L Potassium 4.6 (3.4-5.1) mmol/L Chloride 106 (98-107) mmol/L Carbon Dioxide 26 (22-32) mmol/L BUN 25 H (9-20) mg/dL Creatinine 0.87 (0.66-1.25) mg/dL Estimated GFR > 60 (>60) mL/min BUN/Creatinine Ratio 28.7 H (6-22) Glucose 141 H (80-110) mg/dL Calcium 9.3 (8.4-10.2) mg/dL Magnesium 1.9 (1.6-2.3) mg/dL Total Bilirubin 0.7 (0.2-1.3) mg/dL AST 31 (17-59) IU/L ALT 25 (<50) IU/L Alkaline Phosphatase 76 (38-126) U/L Total Creatine Kinase 67 (55-170) U/L Troponin I < 0.012 < 0.012 (0.01-0.034) ng/mL Total Protein 7.3 (6.3-8.2) g/dL Albumin 4.4 (3.5-5.0) g/dL Globulin 2.9 (1.7-4.1) g/dL Albumin/Globulin Ratio 1.5 (1.0-2.8) Lipase 79 (23-300) U/L Imaging Data Chest x-ray: Radiologist's Impression: [address] [address] XRay Report Signed Patient: Fe Odom MR#: [id number] : 1945 Acct:[id number] Age/Sex: 78 / M Date of Service: 03/31/24 Loc: ED Accession Number: [id number] Procedure: XR chest 1V Ordering Provider: Сергей Meza MD PROCEDURE: XR CHEST 1V INDICATIONS: chest pain TECHNIQUE: One view of the chest was acquired. COMPARISON: [facility], , XR CHEST 1V, 02/09/2021, 19:31. FINDINGS: Surgical changes and devices: None. Lungs and pleura: Lungs are clear. No pleural effusions or pneumothorax. Mediastinum: Mediastinal contours appear normal. Heart size is normal. Aortic arch is calcified indicating atherosclerosis. Bones and chest wall: No suspicious bony lesions. Overlying soft tissues appear unremarkable. IMPRESSION: No acute cardiopulmonary abnormality is seen. Approved by: Jayla Chapa M.D.,Ph.D. on 03/31/2024 at 10:23 Echocardiogram: Radiologist's Impression: [address] [address] Echocardiography Report Signed Patient: Fe Odom MR#: [id number] : 1945 Acct:[id number] Age/Sex: 78 / M Date of Service: 03/31/24 Loc: ED Accession Number: [id number] Procedure: EC echo doppler complete Ordering Provider: Сергей Meza MD [facility] +---------+ Hospital : : [address] [place] [address]. : : [place], [place] : : [address] : : Phone: [phone] Echocardiogram Report + + :Name: FE ODOM Study Date: 03/31/2024 Height: 66 in : :[facility] ReadingLocation: Weight: 148 lb : : Gender: Male BSA: 1.8 m2 : :: 1945 Age: 78 yrs BP: 141/59 mmHg: :Reason For Study: AORTIC STENOSIS : :Ordering Physician: SUSANA, : :СЕРГЕЙ Performed By: Isma Garduno : :Referring: СЕРГЕЙ MEZA : + + Interpretation Summary Normal sinus rhythm with frequent PACs and PVC's.. Normal LV size and mildly increased wall thickness. Normal wall motion and LV systolic function. Ejection fraction is 60-65% Borderline left atrial enlargement; otherwise normal chamber sizes. Aortic valve is a trileaflet structure; aortic valve leaflets are severely thickened and calcified with severely reduced leaflet excursion. There is severe aortic stenosis. Peak velocity of 3.9 m/s, mean gradient is 37 mmHg. Calculated valve area 0.9 well tester?. Dimensionless valve index is 0.22 consistent with severe aortic stenosis. There is mild associated aortic regurgitation. Mild mitral annular calcification. Compared to prior study 05/17/2023 aortic stenosis progressed. Procedure: A two-dimensional transthoracic echocardiogram with color flow and Doppler was performed. The study quality was technically adequate. Comparison is made with the echocardiogram of 05/17/2023. The heart rate ranged between 60-81 bpm during the study. FREQUENT RUNS OF BIGEMINY. Left Ventricle: The left ventricle is normal in size. Left ventricular wall thickness is mildly increased. The ejection fraction is estimated to be 60- 65%. Diastolic function could not be accurately assessed due to confounding valvular disease. Right Ventricle: The right ventricle is normal size. The right ventricular systolic function is normal. Atria: The left atrium is borderline dilated. Right atrial size is normal. The interatrial septum grossly appears intact with no obvious evidence for an atrial septal defect. Mitral Valve: The mitral valve is grossly normal. There is no mitral valve stenosis. There is trace mitral regurgitation. Aortic Valve: There is severe aortic valve sclerosis. There is severe aortic stenosis. The peak aortic velocity is 3.93 m/sec. The aortic valve mean gradient is 37.1 mmHg. The calculated aortic valve area is 0.8 cm2. There is mild to moderate aortic regurgitation. Tricuspid Valve: The tricuspid valve is not well visualized, but is grossly normal. There is no tricuspid stenosis. No tricuspid regurgitation. Pulmonic Valve: The pulmonic valve is not well visualized. There is no pulmonic valvular stenosis. There is no pulmonic valvular regurgitation. Great Vessels: The aortic root is normal size. The dimensions of the ascending aorta are normal. The IVC is of normal diameter and collapses greater than 50% with a sniff. This suggests a low right atrial pressure of 3 mm Hg. Pericardium/ Pleura There is no pericardial effusion. There is no pleural effusion. MMode/2D Measurements & Calculations LVIDd: 4.6 cm LVOT diam: 2.0 cm LVIDs: 3.2 cm Ao root diam: 3.5 cm FS: 31.9 % asc Aorta Diam: 3.6 cm IVSd: 1.1 cm LVPWd: 1.2 cm LV campos. diameter/BSA (cm/m^2): 2.6 LV sys. diameter/BSA (cm/m^2): 1.8 LA A2 area: 19.4 cm2 RA long axis: 5.3 cm LA A4 area: 21.8 cm2 RA area: 21.2 cm2 LA length (vol): 6.6 cm RA vol: 72.9 ml LA vol: 54.7 ml RA : 41.4 ml/m2 LA vol index: 31.1 ml/m2 IVC diam: 1.6 cm RVD1 (basal): 3.6 cm RVD2 (mid): 3.0 cm TAPSE: 2.8 cm Doppler Measurements & Calculations Ao V2 max: 393.5 cm/sec LVOT Max Samuel: 86.7 cm/sec Ao V2 mean: 292.8 cm/sec LV V1 max P.0 mmHg Ao max P.9 mmHg LV V1 VTI: 25.5 cm Ao mean P.1 mmHg TIP(I,D): 0.81 cm2 Ao V2 VTI: 95.8 cm TIP(V,D): 0.67 cm2 sev ratio: 0.27 TIP indexed to BSA (cm^2/m^2): 0.46 MV E max samuel: 75.9 cm/sec PA V2 max: 97.7 cm/sec MV A max samuel: 119.3 cm/sec PA V2 mean: 62.7 cm/sec MV E/A: 0.64 PA mean P.8 mmHg Med Peak E' Samuel: 3.9 cm/sec PA pr(Accel): 32.8 mmHg E/E' med: 19.6 Lat Peak E' Samuel: 5.3 cm/sec E/E' lat: 14.3 E/e' average: 16.9 MV dec time: 0.30 sec SV(LVOT): 77.7 ml Electronically signed by: Marlin Garcia M.D. on Reading Physician:03/31/2024 02:34 PM ECG Data Attestation: I personally reviewed and interpreted this ECG as follows: Interpretation: Normal sinus rhythm with PACs, ventricular rate 77, no obvious ST segment elevation or depression changes. GA interval normal, QRS interval normal, QTC interval normal. MDM Narrative Medical decision making narrative: 78-year-old male with history of dizziness and generalized weakness for the last couple of days, no chest pain or shortness of breath, history of aortic stenosis known, approximately 1 year ago last echocardiogram per patient, no surgical interventions imminent, no spinning/vertigo symptoms. Afebrile, sirs screen negative. CT head noncontrast study requested. Cardiac echo if can be performed in/interpreted this holiday weekend day. EKG shows no obvious ischemic changes, troponin negative, electrolytes unremarkable. [id number], phone call from Cardiology Dr. Garcia, who read the patient's echocardiogram, patient now has more advanced aortic stenosis with valve area 0.9 cm2, we will need intervention soon. During the procedure the patient had frequent PVCs, inquired about electrolytes, which are normal here. Initial troponin here negative. Prior echocardiogram was 30 minutes duration and did not have PVCs mentioned. Metoprolol on his medication list, if he has not taking this then restart, if he is taking that and then consider increased dose. History of prior CAD with coronary stenting noted, and complex medical history including diabetes and monoclonal gammopathy of unclear significance. She felt that it would be unusual progression of symptoms for the aortic stenosis to have fatigue before shortness of breath and chest pain, usually the reverse. She wonders if the frequency of PVCs might be somewhat symptomatic, suggest trial of increased dose beta-ines, pending follow up for aortic stenosis definitive treatment to be arranged with her belt builder helper Dr. Muller. She will message his belt builder helper Dr. Muller about the advanced findings on echocardiogram, feels the patient could for now be discharged on beta-ines or increased dose of beta-ines, assuming 2nd troponin negative. Interval troponin pending. Patient feels better and would like to go home, but seemed to understand device from Dr. Garcia, we will await interval troponin, anticipate discharge home on increased beta-ines dose if troponin negative. Repeat troponin also negative on measurable. We will discharge patient as planned with increased dose of beta-ines, advised to increase his metoprolol 25 mg ER from 1 tablet in the morning to 1-1/2 tablets in the morning for now. Follow up with Dr. Muller, contact his office on Sunday if he has not been contacted by the office himself. Contact information provided for the office of Dr. Cavanaugh as well. Improved, home with family. Critical Care Time Critical Care Time Critical Care Time: Yes Total Critical Care Time: 35 Attestation: The high probability of a clinically significant, sudden or life threatening deterioration of the [cardiopulmonary] system(s) required my full and direct attention, intervention and personal management. The aggregate critical care time was [35] minutes. This time is in addition to time spent performing reported procedures but includes the following: [x] Data Review and interpretation [x] Patient assessment and monitoring of vital signs [x] Documentation [x] Medication orders and management Discharge Plan Departure Patient Disposition: Home Clinical Impression: Dizziness, Aortic stenosis, Palpitations, Premature ventricular contractions Activity Restrictions/Additional Instructions: History of aortic stenosis, dizziness and generalized weakness, no chest pain or shortness of breath. Echocardiogram today was read by Dr. Garcia, who felt there was decreased area now in critical range, likely will need surgery at some point soon. She will coordinate with your belt builder helper Dr. Muller to expedite referral and surgical consultation. She also noted the head considerable number of extra beats frequent PVCs nonsustained, that she felt might be related to your current symptoms. She thought it would be unusual if you were having fatigue and dizziness because of your aortic stenosis itself, before any shortness of breath and chest pain symptoms. She suggested increased dose of your metoprolol, take 1-1/2 tablets of your metoprolol each morning for now. She will contact Dr. Muller, to contact you early this week, to schedule and coordinate surgical repair of your aortic stenosis that is now more critical in narrowing airway area. Return earlier to this/nearest emergency department for any change worsening symptoms or any concerns prior Prescriptions: No Action omeprazole 20 MG capsule,delayed release(DR/EC) 10 mg PO QDAY Qty: 0 gabapentin 600 mg tablet 900 mg PO TID Qty: 405 3RF budesonide 3 mg capsule,delayed,extend.release 9 mg PO DAILY Qty: 270 3RF Farxiga 10 mg tablet 10 mg PO DAILY Qty: 90 3RF metformin 750 mg tablet extended release 24 hr 750 mg PO BID Qty: 180 1RF Jardiance 10 mg tablet 10 mg PO DAILY hjbcwjco-kohaodaie-LJ 3.5-10,000-1 mg/mL-unit/mL-% solution 3 drp EAR-RIGHT TID Qty: 10 0RF rosuvastatin 20 mg tablet 20 mg PO DAILY metoprolol succinate 25 mg tablet extended release 24 hr 25 mg PO DAILY losartan 25 mg tablet 25 mg PO DAILY Eliquis 5 mg tablet 5 mg PO BID alprostadil (bulk) 100 % powder 1 ea miscellaneous turmeric root extract 500 mg capsule 1,000 mg PO DAILY acetaminophen [Tylenol Extra Strength] 500 mg tablet 500 mg PO BID triamcinolone acetonide 0.1 % cream 1 applic topical BID Qty: 30 1RF multivitamin Tablet 1 tab PO DAILY spironolactone 25 mg tablet 25 mg PO DAILY diclofenac sodium 1 % gel 4 g topical QID Qty: 100 2RF Rx Instructions: Apply to lower extremity 4 times daily for pain Referrals: Shantanu Mejía MD [Primary Care Provider] - Stand Alone Forms: Patient Portal/API
--- NOTE | 2024-03-31 12:18 | DI.CT.S_ITS ---
PROCEDURE: CT HEAD/BRAIN WO CON INDICATIONS: dizziness TECHNIQUE: Noncontrast 4.5 mm thick angled axial sections acquired from the foramen magnum to the vertex, with coronal and sagittal reformats. For radiation dose reduction, the following was used: automated exposure control, adjustment of mA and/or kV according to patient size. COMPARISON: [facility], CT, CT HEAD/BRAIN WO CON, 02/09/2021, 19:33. FINDINGS: Image quality: Diagnostic. CSF spaces: Basal cisterns are patent. No extra-axial fluid collections. The ventricles are symmetric in size and shape. Brain: No intracranial bleeds or masses. There is cerebral volume loss for age, with resultant ventricular and sulcal prominence. There are periventricular and deep white matter chronic small vessel ischemic changes. There is intracranial internal carotid artery atherosclerosis. Skull and face: Calvarium and visualized facial bones appear intact, without suspicious lesions. Sinuses: Visualized sinuses and mastoids are clear. IMPRESSION: No acute intracranial pathology. Approved by: Jayla Chapa M.D.,Ph.D. on 03/31/2024 at 12:20
--- NOTE | 2024-03-31 12:19 | DI.ECHO.S_ITS ---
[place] : : [id number] : : [address] [address] : : [id number] : : Phone: [phone] Echocardiogram Report + + :Name: FE ODOM Study Date: 03/31/2024 Height: 66 in : :[facility] ReadingLocation: Weight: 148 lb : : Gender: Male BSA: 1.8 m2 : :: 1945 Age: 78 yrs BP: 141/59 mmHg: :Reason For Study: AORTIC STENOSIS : :Ordering Physician: SUSANA, : :СЕРГЕЙ Performed By: Isma Garduno : :Referring: СЕРГЕЙ MEZA : + + Interpretation Summary Normal sinus rhythm with frequent PACs and PVC's.. Normal LV size and mildly increased wall thickness. Normal wall motion and LV systolic function. Ejection fraction is 60-65% Borderline left atrial enlargement; otherwise normal chamber sizes. Aortic valve is a trileaflet structure; aortic valve leaflets are severely thickened and calcified with severely reduced leaflet excursion. There is severe aortic stenosis. Peak velocity of 3.9 m/s, mean gradient is 37 mmHg. Calculated valve area 0.9 copywriting intern?. Dimensionless valve index is 0.22 consistent with severe aortic stenosis. There is mild associated aortic regurgitation. Mild mitral annular calcification. Compared to prior study 05/17/2023 aortic stenosis progressed. Procedure: A two-dimensional transthoracic echocardiogram with color flow and Doppler was performed. The study quality was technically adequate. Comparison is made with the echocardiogram of 05/17/2023. The heart rate ranged between 60-81 bpm during the study. FREQUENT RUNS OF BIGEMINY. Left Ventricle: The left ventricle is normal in size. Left ventricular wall thickness is mildly increased. The ejection fraction is estimated to be 60- 65%. Diastolic function could not be accurately assessed due to confounding valvular disease. Right Ventricle: The right ventricle is normal size. The right ventricular systolic function is normal. Atria: The left atrium is borderline dilated. Right atrial size is normal. The interatrial septum grossly appears intact with no obvious evidence for an atrial septal defect. Mitral Valve: The mitral valve is grossly normal. There is no mitral valve stenosis. There is trace mitral regurgitation. Aortic Valve: There is severe aortic valve sclerosis. There is severe aortic stenosis. The peak aortic velocity is 3.93 m/sec. The aortic valve mean gradient is 37.1 mmHg. The calculated aortic valve area is 0.8 cm2. There is mild to moderate aortic regurgitation. Tricuspid Valve: The tricuspid valve is not well visualized, but is grossly normal. There is no tricuspid stenosis. No tricuspid regurgitation. Pulmonic Valve: The pulmonic valve is not well visualized. There is no pulmonic valvular stenosis. There is no pulmonic valvular regurgitation. Great Vessels: The aortic root is normal size. The dimensions of the ascending aorta are normal. The IVC is of normal diameter and collapses greater than 50% with a sniff. This suggests a low right atrial pressure of 3 mm Hg. Pericardium/ Pleura There is no pericardial effusion. There is no pleural effusion. MMode/2D Measurements & Calculations LVIDd: 4.6 cm LVOT diam: 2.0 cm LVIDs: 3.2 cm Ao root diam: 3.5 cm FS: 31.9 % asc Aorta Diam: 3.6 cm IVSd: 1.1 cm LVPWd: 1.2 cm LV campos. diameter/BSA (cm/m^2): 2.6 LV sys. diameter/BSA (cm/m^2): 1.8 LA A2 area: 19.4 cm2 RA long axis: 5.3 cm LA A4 area: 21.8 cm2 RA area: 21.2 cm2 LA length (vol): 6.6 cm RA vol: 72.9 ml LA vol: 54.7 ml RA : 41.4 ml/m2 LA vol index: 31.1 ml/m2 IVC diam: 1.6 cm RVD1 (basal): 3.6 cm RVD2 (mid): 3.0 cm TAPSE: 2.8 cm Doppler Measurements & Calculations Ao V2 max: 393.5 cm/sec LVOT Max Samuel: 86.7 cm/sec Ao V2 mean: 292.8 cm/sec LV V1 max P.0 mmHg Ao max P.9 mmHg LV V1 VTI: 25.5 cm Ao mean P.1 mmHg TIP(I,D): 0.81 cm2 Ao V2 VTI: 95.8 cm TIP(V,D): 0.67 cm2 sev ratio: 0.27 TIP indexed to BSA (cm^2/m^2): 0.46 MV E max samuel: 75.9 cm/sec PA V2 max: 97.7 cm/sec MV A max samuel: 119.3 cm/sec PA V2 mean: 62.7 cm/sec MV E/A: 0.64 PA mean P.8 mmHg Med Peak E' Samuel: 3.9 cm/sec PA pr(Accel): 32.8 mmHg E/E' med: 19.6 Lat Peak E' Samuel: 5.3 cm/sec E/E' lat: 14.3 E/e' average: 16.9 MV dec time: 0.30 sec SV(OT): 77.7 ml Electronically signed by: Marlin Garcia M.D. on Reading Physician:03/31/2024 02:34 PM
[2024-03-31 15:45] LABS: Troponin I < 0.012 ng/mL (0.01-0.034)
== END 2024-03-31 16:47 | disposition home or self-care (01) ==
PROVIDERS: Emergency Provider Emergency Medicine; Family Provider Internal Medicine; PCP Internal Medicine
DX: R42 Dizziness and giddiness (principal); I35.0 Nonrheumatic aortic (valve) stenosis; R00.2 Palpitations; I49.3 Ventricular premature depolarization
CPT/HCPCS: 36415; 70450; 71045; 80053; 82550; 83690; 83735; 84484; 85025; 85610; 85730; 93005; 93306; 99283; 99285

== ENCOUNTER → 2024-05-07 07:21 | Outpatient (CLI) | payer MEDICARE, SELFPAY ==
[2024-05-07 08:13] LABS: Aspartate Aminotransferase 20 IU/L (17-59); BUN Creatinine Ratio 22.6 (6-22); Blood Urea Nitrogen 21 mg/dL (9-20); Calcium 9.3 mg/dL (8.4-10.2); Carbon Dioxide 31 mmol/L (22-32); Chloride 103 mmol/L (98-107); Cholesterol 117 mg/dL (140-199); Estimated Glomerular Filt Rate > 60 mL/min (>60); Glucose 170 mg/dL (80-110); HDL Cholesterol 75 mg/dL (40-60); HEMOLYSIS < 15 (0-50); LDL Cholesterol Calculated 24 mg/dL (<100); Potassium 4.3 mmol/L (3.4-5.1); Sodium 138 mmol/L (137-145); Triglycerides 89 mg/dL (35-150)
[2024-05-07 09:51] LABS: Hemoglobin A1C% w Est Avg Glu 7.9 % (4.0-6.0)
== END ==
LOC: LAB 07:23
PROVIDERS: Family Provider Internal Medicine; PCP Internal Medicine; Referring Provider Internal Medicine; Visit Provider Internal Medicine
DX: E78.2 Mixed hyperlipidemia (principal); E11.42 Type 2 diabetes mellitus with diabetic polyneuropathy
CPT/HCPCS: 36415; 80048; 80061; 83036; 84450

== ENCOUNTER → 2024-06-27 17:54 | Outpatient (CLI) | payer MEDICARE, SELFPAY ==
--- NOTE | 2024-06-27 17:56 | DI.RAD.S_ITS ---
PROCEDURE: XR HIP W PEL IF DONE RT 2V INDICATIONS: Right hip pain TECHNIQUE: AP pelvis with lateral view(s) of the right hip(s). COMPARISON: None. FINDINGS: Bones: No fractures or dislocations. Pelvic ring appears intact. No suspicious bony lesions. [id number]-[id number] bilateral hip DJD. Soft tissues: The visualized bowel gas pattern is normal. No suspicious soft tissue calcifications. Arterial vascular calcifications. IMPRESSION: [id number] bilateral hip DJD. Dictated by: Lencho Albert M.D. on 06/28/2024 at 10:21 Approved by: Lencho Albert M.D. on 06/28/2024 at 10:23
== END ==
PROVIDERS: Family Provider Internal Medicine; PCP Internal Medicine; Referring Provider Nurse Practitioner Family; Visit Provider Nurse Practitioner Family
DX: M16.0 Bilateral primary osteoarthritis of hip (principal); M25.551 Pain in right hip
CPT/HCPCS: 73502

== ENCOUNTER 2024-07-10 05:41 | Emergency (ER) | payer MEDICARE, SELFPAY ==
[2024-07-10 05:47] VITALS: BP 183/77; PULSE 61; O2SAT 88; O2SAT 97
[2024-07-10 05:50] VITALS: BP 183/77; PULSE 62; RESP 16; TEMP 36.1; O2SAT 97; BMI 23.3
--- NOTE | 2024-07-10 06:05 | ED.WOUNDLAC ---
HPI - Wound/Laceration <Anabel Bloom MD - Last Filed: 07/14/24 00:29> General Chief Complaint: Wound/Laceration Stated Complaint: suture is oozing pus on rt groin artery Time Seen by Provider: 07/10/24 05:55 Source: patient Mode of arrival: Ambulatory History of Present Illness HPI narrative: 78-year-old male with history coronary disease, aortic stenosis status post TAVR 06/09/[address] Dominguez at presents for evaluation of R groin wound. Patient states that 2 days ago he noticed the tail of what looked like the TAVR closure device poking through the closure site. Yesterday evening he noticed a small amount of pus that seemed to be draining from the area, but it cleared up and he went to bed. This morning he noticed it again and decided to present for evaluation. He states that he was about to go overseas to [place] for a month tomorrow and wants to make sure he is OK to travel. Related Data Home Medications Medication Instructions Recorded Confirmed multivitamin 1 tab PO DAILY 09/16/18 07/03/24 spironolactone 25 mg tablet 25 mg PO DAILY 03/24/21 07/03/24 losartan 25 mg tablet 25 mg PO DAILY 02/15/22 07/03/24 apixaban 5 mg tablet (Eliquis) 5 mg PO BID 04/05/23 07/03/24 acetaminophen 500 mg tablet 500 mg PO BID 07/17/23 07/03/24 (Tylenol Extra Strength) turmeric root extract 500 mg 1,000 mg PO DAILY 07/17/23 07/03/24 capsule metoprolol succinate 25 mg 37.5 mg PO DAILY 05/12/24 07/03/24 tablet,extended release 24 hr clopidogrel 75 mg tablet 75 mg PO DAILY 06/27/24 07/03/24 metformin 500 mg tablet,extended 1,000 mg PO BID 06/27/24 07/03/24 release 24 hr nitroglycerin 0.4 mg sublingual mg sublingual 06/27/24 07/03/24 tablet pantoprazole 20 mg tablet,delayed 20 mg PO DAILY 06/27/24 07/03/24 release Previous Rx's Medication Instructions Recorded budesonide 3 mg 9 mg (3 x 3 mg) PO DAILY #270 ea 10/25/23 capsule,delayed,extended release dapagliflozin propanediol 10 mg 10 mg PO DAILY #90 tabs 11/01/23 tablet (Farxiga) gabapentin 600 mg tablet 900 mg (1.5 x 600 mg) PO TID #405 04/24/24 tabs rosuvastatin 40 mg tablet 40 mg PO DAILY #90 tabs 05/12/24 Allergies Allergy/AdvReac Type Severity Reaction Status Date / Time amiodarone AdvReac Intermediate Verified 07/03/24 09:29 Patient History <Anabel Bloom MD - Last Filed: 07/14/24 00:29> Medical History History of prostate cancer Post-surgical erectile dysfunction Polycythemia Left knee sprain Microscopic colitis Mixed hyperlipidemia Essential hypertension Type 2 diabetes mellitus with polyneuropathy Paroxysmal atrial fibrillation Allergies Disease of spine (~2009) Chicken pox Hearing loss Cataracts, bilateral (~2021) Myocardial infarction Coronary artery disease (~2004) Aortic stenosis (~2019) Murmur Diverticulitis Neuropathy Seasonal allergies GERD (gastroesophageal reflux disease) Hypertension Diabetes (~2004) Surgical History S/P TAVR (transcatheter aortic valve replacement) Anesthesia History of angioplasty (~10/2011) History of prostatectomy (~01/08/11) History of arthroscopic knee surgery (~1999) History of colonoscopy Family History Father History of heart disease Hypertension Hyperlipidemia Mental health problem Stroke Mother History of heart disease Hypertension Hyperlipidemia Stroke Sister Multiple myeloma Social History household members: spouse Smoking Status: Never smoker alcohol intake: current Smoking Status: Never smoker alcohol intake frequency: 0-2 drinks per day Alcohol type: wine Substance Use Type: does not use Exam <Anabel Bloom MD - Last Filed: 07/14/24 00:29> Initial Vital Signs Initial Vital Signs: Vital Signs Pulse Rate 61 07/10/24 05:47 Blood Pressure 183/77 H 07/10/24 05:47 Pulse Oximetry 88 L 07/10/24 05:47 Const: Awake, alert, no acute distress, nontoxic appearing Skin: Warm, Dry, TAVR site in R groin appears nearly healed, however small amount of purulent fluid able to be expressed through site. Neuro: AO x3, CN II-XII grossly intact, moves all extremities <Kevin Conn MD - Last Filed: 07/11/24 06:59> Initial Vital Signs Initial Vital Signs: Vital Signs Pulse Rate 61 07/10/24 05:47 Blood Pressure 183/77 H 07/10/24 05:47 Pulse Oximetry 88 L 07/10/24 05:47 Course <Anabel Bloom MD - Last Filed: 07/14/24 00:29> Orders Ordered: ED Orders 07/10/24 06:06 US arterial duplex LE RT Stat Vital Signs Vital signs: Vital Signs - 8 hr 07/10/24 05:47 07/10/24 05:47 07/10/24 05:50 Temperature 96.9 F L Pulse Rate 61 62 Respiratory Rate 16 Blood Pressure 183/77 H 183/77 H Pulse Oximetry 88 L 97 97 Oxygen Delivery Method Room Air <Kevin Conn MD - Last Filed: 07/11/24 06:59> Orders Ordered: ED Orders 07/10/24 06:06 US arterial duplex LE RT Stat Vital Signs Vital signs: Vital Signs - 8 hr 07/10/24 05:47 07/10/24 05:47 07/10/24 05:50 Temperature 96.9 F L Pulse Rate 61 62 Respiratory Rate 16 Blood Pressure 183/77 H 183/77 H Pulse Oximetry 88 L 97 97 Oxygen Delivery Method Room Air MDM - Wound/Laceration <Anabel Bloom MD - Last Filed: 07/14/24 00:29> MDM Narrative Medical decision making narrative: Well-appearing patient with small amount of pus coming from his previous TAVR site. Surgery happened 1 month ago. Point of care ultrasound seem to show a small pocket of fluid isolated at the top of his groin, however to be absolutely certain there is no pseudoaneurysm a formal US ordered for assessment. Discussed case with Dr. Aiken, on-call cardiology of , who stated that as long as no underlying vascular anomalies were found there are no contraindications to bedside superficial incision and drainage. Care of patient is signed out to Dr. Conn at 7:00 a.m. 07/10/2024, 7:00 aFabien kruger. Sign-out from Dr. Bloom. 78-year-old male status post TAVR procedure one month ago, with clear drainage from right groin puncture site, bedside POCUS without obvious pseudoaneurysm, awaiting formal ultrasound to evaluate for pseudoaneurysm, versus some small pocket of fluid/seroma/abscess, case was presented to [facility], who agreed with obtaining vascular ultrasound to rule out pseudoaneurysm, no contraindication to incision and drainage, though apparently the wound is already small and draining. Afebrile, SIRS screen negative. Awaiting right groin ultrasound. Assumed interim care. 0800, still awaiting performance of ultrasound 0830, verbal sono tech report, groin area TAVR site has a small pinhole skin lesion with subcentimeter associated fluid collection, no edema surrounding, at the site of the femoral artery insertion site there is a small hematoma, no evidence for pseudoaneurysm. Radiology report ultrasound, subcentimeter 0.6 cm small fluid collection subcutaneous, also subcentimeter small hematoma at femoral artery puncture site. See radiology report. Patient informed of sono tech impression, no pseudoaneurysm. Very small fluid collection, already draining, surgical site examined by me, no redness or induration, no expressible fluid or palpable mass. Does not need incision and drainage at this time clinically, patient agrees. He is leaving for [place] in the next couple of days. He is encouraged to seek medical care if there should be increasing pain or swelling to the area, or drainage or redness or fevers otherwise unexplained. <Kevin Conn MD - Last Filed: 07/11/24 06:59> Imaging Data Ultrasound right groin: Radiologist's Impression: [address] [address] Ultrasound Report Signed Patient: Jose Javed MR#: [id number] : 1945 Acct:[id number] Age/Sex: 78 / M Date of Service: 07/10/24 Loc: ED Accession Number: [id number] Procedure: US extremity nonvasc lower rt Ordering Provider: Anabel Bloom MD PROCEDURE: US EXTREMITY NONVASC LOWER RT INDICATIONS: PUS OOZING FROM FORMER TAVR ACCESS SITE TECHNIQUE: Real-time scanning was performed of the right inguinal region , with image documentation. COMPARISON: None. FINDINGS: Just deep to the skin is a 0.6 cm fluid collection at the access site. Adjacent to the right common femoral artery, anterior to this vessel, is a 0.8 x 1.0 x 0.7 cm hypoechoic area which is nonvascular, likely representing a small hematoma. Normal arterial flow within the right common femoral artery. Right common femoral vein patent and compressible. IMPRESSION: Small hematoma post right femoral access for TAVR procedure. Dictated by: Eben Burt M.D. on 07/10/2024 at 10:18 Approved by: Eben Burt M.D. on 07/10/2024 at 10:20 MDM Narrative Medical decision making narrative: Well-appearing patient with small amount of pus coming from his previous TAVR site. Surgery happened 1 month ago. Point of care ultrasound seem to show a small pocket of fluid isolated at the top of his groin, however to be absolutely certain there is no pseudoaneurysm a formal US ordered for assessment. Discussed case with Dr. Aiken, on-call cardiology of , who stated that as long as no underlying vascular anomalies were found there are no contraindications to bedside superficial incision and drainage. 07/10/2024, 7:00 a.mFabien Hunt. Sign-out from Dr. Bloom. 78-year-old male status post TAVR procedure one month ago, with clear drainage from right groin puncture site, bedside POCUS without obvious pseudoaneurysm, awaiting formal ultrasound to evaluate for pseudoaneurysm, versus some small pocket of fluid/seroma/abscess, case was presented to [facility], who agreed with obtaining vascular ultrasound to rule out pseudoaneurysm, no contraindication to incision and drainage, though apparently the wound is already small and draining. Afebrile, SIRS screen negative. Awaiting right groin ultrasound. Assumed interim care. 0800, still awaiting performance of ultrasound 0830, verbal sono tech report, groin area TAVR site has a small pinhole skin lesion with subcentimeter associated fluid collection, no edema surrounding, at the site of the femoral artery insertion site there is a small hematoma, no evidence for pseudoaneurysm. Radiology report ultrasound, subcentimeter 0.6 cm small fluid collection subcutaneous, also subcentimeter small hematoma at femoral artery puncture site. See radiology report. Patient informed of sono tech impression, no pseudoaneurysm. Very small fluid collection, already draining, surgical site examined by me, no redness or induration, no expressible fluid or palpable mass. Does not need incision and drainage at this time clinically, patient agrees. He is leaving for [place] in the next couple of days. He is encouraged to seek medical care if there should be increasing pain or swelling to the area, or drainage or redness or fevers otherwise unexplained. Discharge Plan Departure Patient Disposition: Home Clinical Impression: Seroma after procedure, History of transcatheter aortic valve replacement (TAVR) Activity Restrictions/Additional Instructions: Small area swelling at TAVR procedure right femoral artery access site in the right groin, procedure was about 1 month ago, clear fluid draining today. hvac operations technician performed imaging, no pseudoaneurysm of the femoral artery noted, and there was a very small less than 1 cm fluid collection at the pin hole site. On my examination there was no redness or swelling or discomfort, I could not express any fluid or palpate the 1 cm mass. This is likely clinically a seroma, postoperative fluid collection. That does not seem to be cellulitis or infection changes. No antibiotics for now. You can express this as needed to express any fluid, wear a Band-Aid or collecting pad so that you do not have drainage onto your clothing. For now there is not indication for incision or drainage of a larger procedure. Recheck with your cardiology provider as scheduled arm returned from [place]. While traveling recheck with local medical care provider emergency department if you have change worsening symptoms or increasing redness or pain or swelling or any concerns. Prescriptions: No Action pantoprazole 20 mg tablet,delayed release (DR/EC) 20 mg PO DAILY metformin 500 mg tablet extended release 24 hr 1,000 mg PO BID nitroglycerin 0.4 mg tablet, sublingual sublingual clopidogrel 75 mg tablet 75 mg PO DAILY budesonide 3 mg capsule,delayed,extend.release 9 mg PO DAILY Qty: 270 3RF Farxiga 10 mg tablet 10 mg PO DAILY Qty: 90 3RF gabapentin 600 mg tablet 900 mg PO TID Qty: 405 3RF losartan 25 mg tablet 25 mg PO DAILY metoprolol succinate 25 mg tablet extended release 24 hr 37.5 mg PO DAILY Eliquis 5 mg tablet 5 mg PO BID turmeric root extract 500 mg capsule 1,000 mg PO DAILY acetaminophen [Tylenol Extra Strength] 500 mg tablet 500 mg PO BID rosuvastatin 40 mg tablet 40 mg PO DAILY Qty: 90 3RF multivitamin Tablet 1 tab PO DAILY spironolactone 25 mg tablet 25 mg PO DAILY Referrals: Shantanu Mejía MD [Primary Care Provider] - Stand Alone Forms: Patient Portal/API
[2024-07-10 08:54] VITALS: BP 180/72; PULSE 61; RESP 20; TEMP 36.7; O2SAT 99
== END 2024-07-10 08:55 | disposition home or self-care (01) ==
PROVIDERS: Emergency Provider Emergency Medicine; Family Provider Internal Medicine; PCP Internal Medicine
DX: L76.34 Postprocedural seroma of skin and subcutaneous tissue following other procedure (principal); Z95.2 Presence of prosthetic heart valve; Z79.899 Other long term (current) drug therapy; Z79.01 Long term (current) use of anticoagulants
CPT/HCPCS: 76882; 99283

== ENCOUNTER → 2024-08-26 07:19 | Outpatient (CLI) | payer MEDICARE, SELFPAY ==
[2024-08-26 08:23] LABS: Hemoglobin 16.1 g/dL (13.5-17.5); Mean Corpuscular HGB Conc 34.2 % (30-36); Mean Corpuscular Hemoglobin 32.3 PG (26-34); Mean Corpuscular Volume 94.3 fL (80-100); Platelet Count 144 X10^3/uL (150-400); Red Blood Cell Count 4.99 X10^6/uL (4.5-5.9); Red Cell Distribution Width 13.8 % (11.6-14.8); White Blood Cell Count 5.7 X10^3/uL (4.5-11.0)
[2024-08-26 09:08] LABS: Alanine Aminotransferase 20 IU/L (<50); Albumin 4.2 g/dL (3.5-5.0); Albumin Globulin Ratio 1.7 (1.0-2.8); Alkaline Phosphatase 75 U/L (38-126); Aspartate Aminotransferase 25 IU/L (17-59); BUN Creatinine Ratio 16.8 (6-22); Blood Urea Nitrogen 17 mg/dL (9-20); Calcium 9.4 mg/dL (8.4-10.2); Carbon Dioxide 28 mmol/L (22-32); Chloride 100 mmol/L (98-107); Cholesterol 119 mg/dL (140-199); Estimated Glomerular Filt Rate > 60 mL/min (>60); Globulin 2.5 g/dL (1.7-4.1); Glucose 143 mg/dL (80-110); HDL Cholesterol 66 mg/dL (40-60); HEMOLYSIS < 15 (0-50); LDL Cholesterol Calculated 26 mg/dL (<100); Potassium 4.4 mmol/L (3.4-5.1); Sodium 135 mmol/L (137-145); Total Protein 6.7 g/dL (6.3-8.2); Triglycerides 134 mg/dL (35-150)
[2024-08-26 09:18] LABS: Hemoglobin A1C% w Est Avg Glu 8.1 % (4.0-6.0)
== END ==
PROVIDERS: Family Provider Internal Medicine; PCP Internal Medicine; Referring Provider Internal Medicine; Visit Provider Internal Medicine
DX: E78.2 Mixed hyperlipidemia (principal); E11.42 Type 2 diabetes mellitus with diabetic polyneuropathy; I25.10 Atherosclerotic heart disease of native coronary artery without angina pectoris
CPT/HCPCS: 36415; 80053; 80061; 83036; 85027

== ENCOUNTER 2024-12-04 10:15 | Outpatient (RCR) | payer MEDICARE, SELFPAY | END 2024-12-04 12:15 | LOC: CAR 10:15 | PROVIDERS: Family Provider Internal Medicine; PCP Internal Medicine; Referring Provider Internal Medicine Interventional Cardiology; Visit Provider Internal Medicine Interventional Cardiology | DX: Z95.2 Presence of prosthetic heart valve (principal) | CPT/HCPCS: 93798 ==

== ENCOUNTER → 2024-12-10 07:56 | Outpatient (CLI) | payer MEDICARE, SELFPAY ==
[2024-12-10 09:23] LABS: BUN Creatinine Ratio 23.9 (6-22); Blood Urea Nitrogen 28 mg/dL (9-20); Calcium 9.2 mg/dL (8.4-10.2); Carbon Dioxide 27 mmol/L (22-32); Chloride 102 mmol/L (98-107); Estimated Glomerular Filt Rate > 60 mL/min (>60); Glucose 161 mg/dL (80-110); HEMOLYSIS < 15 (0-50); Potassium 4.4 mmol/L (3.4-5.1); Sodium 138 mmol/L (137-145)
== END ==
PROVIDERS: Family Provider Internal Medicine; PCP Internal Medicine; Referring Provider Internal Medicine; Visit Provider Internal Medicine
DX: E11.42 Type 2 diabetes mellitus with diabetic polyneuropathy (principal)
CPT/HCPCS: 36415; 80048; 83036

== ENCOUNTER → 2025-04-15 07:37 | Outpatient (CLI) | payer MEDICARE, SELFPAY ==
[2025-04-15 08:17] LABS: Hemoglobin A1C% w Est Avg Glu 6.2 % (4.0-6.0)
[2025-04-15 08:26] LABS: Aspartate Aminotransferase 21 IU/L (17-59); BUN Creatinine Ratio 25.5 (6-22); Blood Urea Nitrogen 25 mg/dL (9-20); Calcium 9.1 mg/dL (8.4-10.2); Carbon Dioxide 27 mmol/L (22-32); Chloride 103 mmol/L (98-107); Estimated Glomerular Filt Rate > 60 mL/min (>60); Glucose 128 mg/dL (70-99); HEMOLYSIS < 15 (0-50); Sodium 139 mmol/L (137-145)
[2025-04-15 10:25] LABS: Creatinine Urine Random 86.87 mg/dL
[2025-04-15 10:30] LABS: Microalbumin Urine Random 9.4 mg/dL (0-1.6)
== END ==
PROVIDERS: Family Provider Internal Medicine; PCP Internal Medicine; Referring Provider Internal Medicine; Visit Provider Internal Medicine
DX: E11.42 Type 2 diabetes mellitus with diabetic polyneuropathy (principal); I48.0 Paroxysmal atrial fibrillation
CPT/HCPCS: 36415; 80048; 82043; 82570; 83036; 84450

== ENCOUNTER → 2025-07-21 07:31 | Outpatient (CLI) | payer MEDICARE, SELFPAY ==
[2025-07-21 09:06] LABS: Hemoglobin A1C% w Est Avg Glu 6.2 % (4.0-6.0)
[2025-07-21 09:19] LABS: Blood Urea Nitrogen 26 mg/dL (9-20); Calcium 9.1 mg/dL (8.4-10.2); Carbon Dioxide 26 mmol/L (22-32); Chloride 102 mmol/L (98-107); Estimated Glomerular Filt Rate > 60 mL/min (>60); Glucose 111 mg/dL (70-99); HEMOLYSIS < 15 (0-50); Potassium 4.2 mmol/L (3.4-5.1); Sodium 138 mmol/L (137-145)
== END ==
PROVIDERS: Family Provider Internal Medicine; PCP Internal Medicine; Referring Provider Internal Medicine; Visit Provider Internal Medicine
DX: E11.42 Type 2 diabetes mellitus with diabetic polyneuropathy (principal)
CPT/HCPCS: 36415; 80048; 83036

== ENCOUNTER → 2025-10-22 07:16 | Outpatient (CLI) | payer MEDICARE, SELFPAY ==
[2025-10-22 08:02] LABS: Hemoglobin A1C% w Est Avg Glu 6.3 % (4.0-6.0)
[2025-10-22 08:11] LABS: Blood Urea Nitrogen 27 mg/dL (9-20); Calcium 9.1 mg/dL (8.4-10.2); Carbon Dioxide 29 mmol/L (22-32); Chloride 105 mmol/L (98-107); Estimated Glomerular Filt Rate > 60 mL/min (>60); Glucose 139 mg/dL (70-99); HEMOLYSIS < 15 (0-50); Potassium 4.4 mmol/L (3.4-5.1); Sodium 141 mmol/L (137-145)
[2025-10-22 08:43] LABS: Prostate Specific Antigen < 0.064 ng/mL (0.10-4.00)
== END ==
PROVIDERS: Family Provider Internal Medicine; PCP Internal Medicine; Referring Provider Internal Medicine; Visit Provider Internal Medicine
DX: I25.10 Atherosclerotic heart disease of native coronary artery without angina pectoris (principal); E11.42 Type 2 diabetes mellitus with diabetic polyneuropathy; Z85.46 Personal history of malignant neoplasm of prostate
CPT/HCPCS: 36415; 80048; 83036; 84153